=== PATIENT | male | born 1945 | race Caucasian/White ===

== ENCOUNTER 2022-10-23 11:14 | Inpatient (IN) | payer MEDICARE, MEDICAID, SELFPAY ==
--- NOTE | ~2022-10-23 | CT_ITS ---
EXAMINATION: CT ABDOMEN AND PELVIS WITHOUT CONTRAST CLINICAL INFORMATION: Nausea/vomiting with abdominal distention. COMPARISON: None available. TECHNIQUE: Multidetector volumetric imaging was performed from the superior aspect of the liver through the pubic symphysis. Sagittal and coronal reformatted images were obtained on the technologist's workstation. This CT examination was performed using dose optimization techniques as appropriate, variously including the following: *Automated exposure control *Adjustment of mA and/or kV according to patient size (this includes techniques or standardized protocols for targeted exams where dose is matched to indication/reason for exam; i.e. extremities or head) *Use of iterative reconstruction technique DLP: 295 mGy-cm FINDINGS: LUNG BASES: Heart size is enlarged. There is bilateral increased interstitial markings in both lungs suggestive of chronic changes. Bilateral posterior pleural thickening is seen. LIVER, GALLBLADDER, AND BILIARY TREE: The liver is normal in size, shape, and attenuation. No focal hepatic lesion or biliary ductal dilatation is present. There are multiple radiopaque dependent gallstones without wall thickening. PANCREAS: Unremarkable. SPLEEN: Unremarkable. ADRENAL GLANDS: Unremarkable. KIDNEYS AND URETERS: The kidneys are normal in size, shape, and attenuation. No hydronephrosis, hydroureter, or calculi seen. No perinephric stranding. There are bilateral renal cysts. BLADDER: There is a Kauffman's catheter in a nondistended bladder. No radiopaque calculi seen. Mild bladder wall thickening seen. GASTROINTESTINAL TRACT: There is scattered stool, diverticula, gas and oral contrast seen, without distention or diverticulitis. The small bowel loops are normal caliber, appendix is not visualized. ABDOMINAL WALL: There is a small umbilical hernia containing soft tissue density measuring 50 Hounsfield units, fluid. No fat stranding seen. LYMPH NODES: Normal. VASCULAR: There is atherosclerotic calcification of abdominal aorta without aneurysmal dilatation. PELVIC VISCERA: There is no free air or free fluid. Abnormal pelvic lymph nodes. OSSEOUS STRUCTURES: There is diffuse osteopenia. CT/CT abdomen pelvis wo IV con IMPRESSION: Colonic diverticulosis without diverticulitis. Mild constipation. Cholelithiasis without wall thickening. Emphysema with bilateral chronic scarring. Fleischner guidelines were followed.
--- NOTE | ~2022-10-23 | XR_ITS ---
EXAMINATION: XR CHEST CLINICAL INFORMATION: Shortness of breath COMPARISON: Chest radiographs 05/02/2019, CT abdomen 10/23/2022, CT chest 05/02/2019 TECHNIQUE: Portable upright AP view of the chest was obtained. FINDINGS: There are postsurgical changes with aortic and mitral valve replacement, sternotomy wires, mediastinal clips, and right hemithorax rib compression plates and screws similar to prior study. There is mild fullness cardiopericardial silhouette, stable from 2019. The vascularity shows even distribution which may suggest mild elevated pulmonary venous pressures. There is increased coarsening of the interstitial markings right lower zone without lobar or segmental airspace consolidation or air bronchogram. No effusion. The hilar and mediastinal contours and bony structures are stable. XR/XR chest 1V IMPRESSION: -Postsurgical changes. Even distribution pulmonary vascularity which may be associated with mild elevated pulmonary venous pressures. No effusion. -Increased coarsening interstitial markings right lower zone. No lobar or segmental airspace consolidation.
--- NOTE | ~2022-10-23 | CT_ITS ---
EXAMINATION: CT ABDOMEN AND PELVIS WITHOUT CONTRAST CLINICAL INFORMATION: Acute kidney injury with severe back pain and elevated INR COMPARISON: 05/02/2019 TECHNIQUE: Multidetector volumetric imaging was performed from the superior aspect of the liver through the pubic symphysis. Sagittal and coronal reformatted images were obtained on the technologist's workstation. This CT examination was performed using dose optimization techniques as appropriate, variously including the following: *Automated exposure control *Adjustment of mA and/or kV according to patient size (this includes techniques or standardized protocols for targeted exams where dose is matched to indication/reason for exam; i.e. extremities or head) *Use of iterative reconstruction technique DLP: 324 mGy-cm FINDINGS: Although this study was not done with intravenous contrast, it appears that this patient has had a fairly recent contrast administration as there is vicarious excretion of contrast in the gallbladder, nephrograms are present, and IV contrast is present in the bladder. LUNG BASES: Interstitial lung disease is again noted at the bases with fibrosis similar to prior. No acute consolidations or pleural effusions. The heart is enlarged. Coronary calcifications are present LIVER, GALLBLADDER, AND BILIARY TREE: The liver has a cirrhotic morphology with a nodular border and hypertrophied left lobe. No focal mass or biliary ductal dilatation is seen. The gallbladder contains IV contrast probably from vicarious excretion. A single dependent stone is again seen without pericholecystic inflammatory changes. PANCREAS: Unremarkable. SPLEEN: Unremarkable. ADRENAL GLANDS: Unremarkable. KIDNEYS AND URETERS: The kidneys are normal in size, shape, and attenuation. Bilateral Bosniak class I simple cysts are present without solid masses. Persistent nephrograms are present indicative of possible acute tubular necrosis as I suspect there has been a recent contrast administration for the reasons discussed above. No hydronephrosis, hydroureter, or calculi seen. No perinephric stranding. BLADDER: The bladder is distended and filled with contrast enhanced urine GASTROINTESTINAL TRACT: The small and large bowel are unremarkable. The appendix is unremarkable. ABDOMINAL WALL: No significant hernia is appreciated. There has been prior abdominal wall hernia repair present. LYMPH NODES: No retroperitoneal lymphadenopathy. VASCULAR: Atherosclerotic disease with calcified plaque is present in the aorta and iliofemoral vessels without aneurysm. No retroperitoneal PELVIC VISCERA: Moderate BPH. Seminal vesicles normal OSSEOUS STRUCTURES: Scoliosis convex to the left. Mild degenerative changes are present in the spine most marked at L4-L5. There is sclerosis and partial collapse of the T11 vertebral body. CT/CT abdomen pelvis wo IV con IMPRESSION: A cause for the patient's severe back pain has not been found. Incidental note made of: 1. Interstitial lung disease with fibrosis. 2. Cardiomegaly. 3. Cirrhotic liver. 4. Cholelithiasis without cholecystitis. 5. Bilateral Bosniak class I renal cysts. 6. Degenerative changes in the spine with scoliosis and partial collapse of T11. 7. Evidence of renal dysfunction with persistent nephrograms (contrast was not administered for this study) Fleischner guidelines were followed.
[2022-10-23 11:20] VITALS: BP 125/72; BP 128/76; PULSE 80; PULSE 88; RESP 20; TEMP 36.4; O2SAT 96; BMI 20.7
--- NOTE | 2022-10-23 11:42 | ED_ITS ---
HPI - Back Pain/Injury General Chief Complaint: Weakness Stated Complaint: Weakness, abnormal labs per EMS Time Seen by Provider: 10/23/22 11:22 Source: patient, EMS and old records reviewed Mode of arrival: EMS Limitations: no limitations History of Present Illness HPI Narrative: 77-year-old male with history of AFib on Coumadin, HFpEF s/p mechanical mitral and aortic valves, hx UE DVT 2019, CAD s/p CABG, interstitial lung disease, seizure disorder, anxiety, CKD, syncope, chronic anemia, hx multiple rib fractu res s/p ORIF, hx chest wall hematoma due to elevated INR requiring evacuation and blood transfusion in the past who presents to the ER for evaluation worsening low back pain for the last 2 weeks after lifting injury as well as elevated INR. Patient goes to the Coumadin Clinic at [facility] and was told his INR was 5.9 today. He denies any recent falls. He states he has severe low back pain in the middle of his back. Worse with any movement or laying flat. He states the pain is making it hard for him to walk. He comes from a [place]. He was recently at [facility] ER a couple of weeks ago when he injured his back and he thinks he has compression fractures. He states he had 2 CT scans at that time but does not know the results. He is taking PRN oxycodone. He denies any radiation of the pain, no leg weakness, numbness, tingling or bowel/bladder incontinence. MD elicited complaint: back pain, back injury and other (supratherapeutic INR) Pertinent past history: recent trauma Onset (ago): week(s) (2) Severity: severe Pain scale (0-10): 10 Similar Symptoms Previously: Yes Quality: sharp and stabbing Location: lumbar spine Radiation: none Exacerbating factors: movement, supine positioning and walking Relieving factors: immobilization Context: while lifting and turning/twisting Associated symptoms: difficulty walking Treatments prior to arrival: prescription analgesics Work related injury: No Related Data Home Medications Medication Instructions Recorded Confirmed bumetanide 1 mg tablet 2 mg PO BID 10/23/22 10/23/22 cholecalciferol (vitamin D3) 50 50 mcg PO DAILY 10/23/22 10/23/22 mcg (2,000 unit) capsule cyanocobalamin (vitamin B-12) 1,000 mcg PO DAILY 10/23/22 10/23/22 1,000 mcg tablet diltiazem HCl 240 mg 1 cap PO BEDTIME 10/23/22 10/23/22 capsule,extended release 24 hr ferrous sulfate 325 mg (65 mg 325 mg PO DAILY 10/23/22 10/23/22 iron) tablet fluoxetine 10 mg capsule 1 cap PO DAILY 10/23/22 10/23/22 folic acid 800 mcg tablet 0.8 mg PO DAILY 10/23/22 10/23/22 losartan 25 mg tablet 1 tab PO DAILY 10/23/22 10/23/22 oxycodone-acetaminophen 5 mg-325 1 tab PO BID PRN pain 10/23/22 10/23/22 mg tablet phenytoin sodium extended 100 mg 200 mg PO BID 10/23/22 10/23/22 capsule rosuvastatin 10 mg tablet 1 tab PO DAILY 10/23/22 10/23/22 tamsulosin 0.4 mg capsule 2 cap PO BEDTIME 10/23/22 10/23/22 torsemide 100 mg tablet 100 mg PO BID 10/23/22 10/23/22 warfarin 2.5 mg tablet 1.25 mg PO MOWEFR@1800 10/23/22 10/23/22 warfarin 2.5 mg tablet 2.5 mg PO SUTUTHSA@1800 10/23/22 10/23/22 zinc sulfate 50 mg zinc (220 mg) 50 mg PO DAILY 10/23/22 10/23/22 capsule Allergies Allergy/AdvReac Type Severity Reaction Status Date / Time No Known Allergies Allergy Unverified 04/27/20 19:41 [No Known Allergies*] Review of Systems Review of Systems: Yes all other systems are reviewed and are negative [facility] Social History Social History Alcohol intake: never Smoked in Last 30 Days: No Use of substances other than those prescribed or required for medical reasons: Yes Substance Use Type: Marijuana Advance Directives: Yes Advance Directives on File: Yes Advance Directives Date on File: 10/23/22 Physical Exam Vital Signs: Vital Signs: Last Vital Signs Temp 97.6 F 10/23/22 11:20 Pulse 80 10/23/22 15:03 Resp 20 10/23/22 15:03 BP 143/73 H 10/23/22 15:03 Pulse Ox 98 10/23/22 15:03 O2 Del Method 10/23/22 15:03 BMI result Body Mass Index 20.7 Appearance: Alert. Oriented X3. No acute distress. Eyes: Pupils equal, round and reactive to light. ENT: Pharynx normal. Neck: Normal inspection. Neck supple. CVS: Normal heart rate and rhythm. Pulses normal. Respiratory: No respiratory distress. Breath sounds normal. Abdomen: Soft and nontender. +BS x4 Skin: Skin warm and dry. Normal skin color. Normal skin turgor. No rashes. Back: lumbar tenderness throughout including the soft tissues and midline spine. limited ROM due to pain. Extremities: No lower extremity edema. able to move the lower extremities but in severe back pain Neuro: Oriented X 3. No motor deficit. No sensory deficit. gait not tested due to back pain Medications Administered Discontinued Medications Generic Name Dose Route Start Last Admin Trade Name Freq PRN Reason Stop Dose Admin Acetaminophen 975 mg 10/23/22 11:38 10/23/22 11:46 Acetaminophen 325 Mg Tablet PO 10/23/22 11:39 975 mg ONCE ONE Administration Fentanyl 50 mcg 10/23/22 13:48 10/23/22 14:10 Fentanyl Citrate/Pf 100 Mcg/2 Ml Vial IVPUSH 10/23/22 13:49 50 mcg ONCE ONE Administration Protocol Sodium Chloride 500 mls @ 500 mls/hr 10/23/22 14:45 10/23/22 14:58 Ns IV 10/23/22 15:44 500 mls/hr .Q1H KASSANDRA Administration Ceftriaxone Sodium 1 gm/ 50 mls @ 100 mls/hr 10/23/22 15:49 10/23/22 16:15 Sodium Chloride IV 10/23/22 16:18 100 mls/hr ONCE ONE Administration Lidocaine HCl 10 ml 10/23/22 14:34 10/23/22 14:59 Lidocaine Hcl 2 % Urojet 10 Ml Jel.Pf.Bassam TOPICAL 10/23/22 14:35 10 ml ONCE ONE Administration Oxycodone HCl 5 mg 10/23/22 11:37 10/23/22 11:47 Oxycodone Hcl Immed Release 5 Mg Tablet PO 10/23/22 11:38 5 mg ONCE ONE Administration Medical Decision Making Medical Decision Making MDM Narrative: 77-year-old male with a history of diastolic heart failure, syncope, CKD, anemia, seizures, AFib on Coumadin who presents to the ER for evaluation of a supratherapeutic INR and worsening back pain for the last couple of days after an injury 2 weeks ago. He has an exquisite pain on arrival. He has tenderness to his entire lumbar area, worse midline. Unable to lay flat. His vital signs are stable. He has no red flag symptoms of low back pain. Attempting to get records from [facility] now. No evidence of acute bleeding. Repeat INR is pending. No indication for reversal at this time. He has no evidence of flank ecchymosis. No history of trauma to suggest an RP bleed. 17:00 - only slight improvement in renal [id number] after IVF and straight cath. Differential Diagnosis Differential Diagnoses: The differential diagnosis associated with the presentation includes Back pain ddx : Compression fracture, retroperitoneal bleed, renal hematoma, lumbar strain, pyelonephritis, no evidence of cauda equina syndrome ANUPAMA ddx: obstructive uropathy, pre-renal ANUPAMA, cardiorenal syndrome, contrast induced nephropathy - likely multifactorial Admission/Observation Consideration of admission/observation: Escalation of care including admission/observation considered ANUPAMA on CKD Consult Healthcare Provider Management of the patient was discussed with: Hospitalist Spoke w/ Dr. Dyson who accepts for admission Lab Data MDM Lab Attestation statement: I reviewed the patient's lab results. Stable macrocytic anemia, acute renal failure, hypokalemia, elevated BNP 10/23/22 11:53 10/23/22 11:53 Labs: Lab Results 10/23/22 10/23/22 10/23/22 Range/Units 11:53 11:53 11:53 WBC 7.4 (4.8-10.8) X10*3/uL RBC 3.00 L (4.60-5.80) X10*6/uL Hgb 10.7 L (14.0-18.0) g/dl Hct 31.9 L (42.0-52.0) % MCV 106.3 H (80.0-98.0) fL MCH 35.7 H (27.0-33.0) pg MCHC 33.5 (31.0-36.0) g/dl RDW 13.3 (11.0-16.0) % Plt Count 252 (160-400) X10*3/uL MPV 9.0 L (9.4-12.4) fL Immature Gran % (Auto) 0.3 (0.0-0.4) % Neut % (Auto) 82.7 H (45-73) % Lymph % (Auto) 5.2 L (20-40) % [place] % (Auto) 9.5 (2-11) % Eos % (Auto) 1.6 (0-4) % Baso % (Auto) 0.7 (0-2) % Lymph # (Auto) 0.4 L (1.2-4.9) X10*3/uL [place] # (Auto) 0.7 (0.1-1.2) X10*3/uL Eos # (Auto) 0.1 (0.0-0.4) X10*3/uL Baso # (Auto) 0.1 (0.0-0.2) X10*3/uL Abs Immat Gran (auto) 0.02 (0.00-0.03) X10*3/uL Absolute Neuts (auto) 6.1 (2.0-8.3) x10*3/uL Absolute Nucleated RBC 0.000 (0.0-0.012) X10*3/uL Nucleated RBC % (auto) 0.0 (0.0-0.2) /100WBC PT 64.9 H (10.0-13.1) SEC INR 5.3 H* (0.9-1.1) APTT 46.4 H (26.0-36.4) SEC Sodium 136 (135-145) mmol/L Potassium 2.9 L (3.3-5.1) mmol/L Chloride 94 L (96-108) mmol/L Carbon Dioxide 27 (22-29) mmol/L Anion Gap 18 (12-20) BUN 47 H (9-16) mg/dL Creatinine 3.53 H (0.5-1.4) mg/dL Estim Creat Clear Calc 15.7 Estimated GFR 17 Random Glucose 96 (60-115) mg/dL Lactic Acid (0.5-2.0) mmol/L Calcium 8.8 (8.4-10.2) mg/dL Magnesium 2.4 (1.6-2.6) mg/dL Total Bilirubin 0.6 (0.0-1.0) mg/dL Direct Bilirubin 0.2 (0.0-0.5) mg/dL AST 18 (5-37) U/L ALT 11 (0-40) U/L Alkaline Phosphatase 240 H (39-117) U/L B-Natriuretic Peptide (<100) pg/mL Total Protein 7.0 (6.5-8.0) g/dL Albumin 3.7 (3.5-5.0) g/dL Urine Color Urine Appearance Urine pH (5.0-9.0) Ur Specific [place] (1.005-1.025) Urine Protein (Neg-Trace) mg/dL Urine Glucose (UA) (Negative) mg/dL Urine Ketones (Negative) mg/dL Urine Blood (Negative) Urine Nitrite (Negative) Ur Leukocyte Esterase (Negative) Urine RBC (0-2) /HPF Urine WBC (0-5) /HPF Ur Squamous Epith Cells (0-2) /HPF Urine Bacteria (None Seen) Hyaline Casts (0-2) /LPF Granular Casts Ur Random Sodium mmol/L Urine Creatinine mg/dL COVID-19 (DAPHNE) (Negative) COVID-19 Clin Com 10/23/22 10/23/22 10/23/22 Range/Units 11:53 11:53 15:02 WBC (4.8-10.8) X10*3/uL RBC (4.60-5.80) X10*6/uL Hgb (14.0-18.0) g/dl Hct (42.0-52.0) % MCV (80.0-98.0) fL MCH (27.0-33.0) pg MCHC (31.0-36.0) g/dl RDW (11.0-16.0) % Plt Count (160-400) X10*3/uL MPV (9.4-12.4) fL Immature Gran % (Auto) (0.0-0.4) % Neut % (Auto) (45-73) % Lymph % (Auto) (20-40) % [place] % (Auto) (2-11) % Eos % (Auto) (0-4) % Baso % (Auto) (0-2) % Lymph # (Auto) (1.2-4.9) X10*3/uL [place] # (Auto) (0.1-1.2) X10*3/uL Eos # (Auto) (0.0-0.4) X10*3/uL Baso # (Auto) (0.0-0.2) X10*3/uL Abs Immat Gran (auto) (0.00-0.03) X10*3/uL Absolute Neuts (auto) (2.0-8.3) x10*3/uL Absolute Nucleated RBC (0.0-0.012) X10*3/uL Nucleated RBC % (auto) (0.0-0.2) /100WBC PT (10.0-13.1) SEC INR (0.9-1.1) APTT (26.0-36.4) SEC Sodium (135-145) mmol/L Potassium (3.3-5.1) mmol/L Chloride (96-108) mmol/L Carbon Dioxide (22-29) mmol/L Anion Gap (12-20) BUN (9-16) mg/dL Creatinine (0.5-1.4) mg/dL Estim Creat Clear Calc Estimated GFR Random Glucose (60-115) mg/dL Lactic Acid (0.5-2.0) mmol/L Calcium (8.4-10.2) mg/dL Magnesium (1.6-2.6) mg/dL Total Bilirubin (0.0-1.0) mg/dL Direct Bilirubin (0.0-0.5) mg/dL AST (5-37) U/L ALT (0-40) U/L Alkaline Phosphatase (39-117) U/L B-Natriuretic Peptide 730 H (<100) pg/mL Total Protein (6.5-8.0) g/dL Albumin (3.5-5.0) g/dL Urine Color Urine Appearance Urine pH (5.0-9.0) Ur Specific [place] (1.005-1.025) Urine Protein (Neg-Trace) mg/dL Urine Glucose (UA) (Negative) mg/dL Urine Ketones (Negative) mg/dL Urine Blood (Negative) Urine Nitrite (Negative) Ur Leukocyte Esterase (Negative) Urine RBC (0-2) /HPF Urine WBC (0-5) /HPF Ur Squamous Epith Cells (0-2) /HPF Urine Bacteria (None Seen) Hyaline Casts (0-2) /LPF Granular Casts Ur Random Sodium 33.0 mmol/L Urine Creatinine 68.56 mg/dL COVID-19 (DAPHNE) Negative (Negative) COVID-19 Clin Com See Note 10/23/22 10/23/22 10/23/22 Range/Units 15:02 16:10 16:10 WBC (4.8-10.8) X10*3/uL RBC (4.60-5.80) X10*6/uL Hgb (14.0-18.0) g/dl Hct (42.0-52.0) % MCV (80.0-98.0) fL MCH (27.0-33.0) pg MCHC (31.0-36.0) g/dl RDW (11.0-16.0) % Plt Count (160-400) X10*3/uL MPV (9.4-12.4) fL Immature Gran % (Auto) (0.0-0.4) % Neut % (Auto) (45-73) % Lymph % (Auto) (20-40) % [place] % (Auto) (2-11) % Eos % (Auto) (0-4) % Baso % (Auto) (0-2) % Lymph # (Auto) (1.2-4.9) X10*3/uL [place] # (Auto) (0.1-1.2) X10*3/uL Eos # (Auto) (0.0-0.4) X10*3/uL Baso # (Auto) (0.0-0.2) X10*3/uL Abs Immat Gran (auto) (0.00-0.03) X10*3/uL Absolute Neuts (auto) (2.0-8.3) x10*3/uL Absolute Nucleated RBC (0.0-0.012) X10*3/uL Nucleated RBC % (auto) (0.0-0.2) /100WBC PT (10.0-13.1) SEC INR (0.9-1.1) APTT (26.0-36.4) SEC Sodium 136 (135-145) mmol/L Potassium 3.1 L (3.3-5.1) mmol/L Chloride 98 (96-108) mmol/L Carbon Dioxide 20 L (22-29) mmol/L Anion Gap 21 H (12-20) BUN 47 H (9-16) mg/dL Creatinine 3.16 H (0.5-1.4) mg/dL Estim Creat Clear Calc 17.6 Estimated GFR 19 Random Glucose 103 (60-115) mg/dL Lactic Acid 0.4 L (0.5-2.0) mmol/L Calcium 8.4 (8.4-10.2) mg/dL Magnesium (1.6-2.6) mg/dL Total Bilirubin (0.0-1.0) mg/dL Direct Bilirubin (0.0-0.5) mg/dL AST (5-37) U/L ALT (0-40) U/L Alkaline Phosphatase (39-117) U/L B-Natriuretic Peptide (<100) pg/mL Total Protein (6.5-8.0) g/dL Albumin (3.5-5.0) g/dL Urine Color Yellow Urine Appearance Cloudy Urine pH 5.0 (5.0-9.0) Ur Specific [place] 1.020 (1.005-1.025) Urine Protein 30 (1+) H (Neg-Trace) mg/dL Urine Glucose (UA) Negative (Negative) mg/dL Urine Ketones Negative (Negative) mg/dL Urine Blood Trace H (Negative) Urine Nitrite Negative (Negative) Ur Leukocyte Esterase Moderate (2+) H (Negative) Urine RBC 0-2 (0-2) /HPF Urine WBC 21-50 H (0-5) /HPF Ur Squamous Epith Cells 6-10 (0-2) /HPF Urine Bacteria 4+ (None Seen) Hyaline Casts 0-2 (0-2) /LPF Granular Casts Present Ur Random Sodium mmol/L Urine Creatinine mg/dL COVID-19 (DAPHNE) (Negative) COVID-19 Clin Com Independent Interpretation I performed an independent interpretation of an: Plain X-Ray and CT Scan Interpretation: CXR with chronically increased vascular markings, cardiomegaly, hardware present in right ribs. no pleural effusions or overt pna CT scan showing honeycombing of the lung bases c/w ILD, no RP bleed, no hyd ronephrosis or stranding, no obvious compression defomities appreciated Radiology Impression Discussion of test interpretation with radiology: I have reviewed the radiologist's reading. Radiologist Impression: CXR : CLINICAL INFORMATION: Shortness of breath COMPARISON: Chest radiographs 05/02/2019, CT abdomen 10/23/2022, CT chest 05/02/2019 TECHNIQUE: Portable upright AP view of the chest was obtained. FINDINGS: There are postsurgical changes with aortic and mitral valve replacement, sternotomy wires, mediastinal clips, and right hemithorax rib compression plates and screws similar to prior study. There is mild fullness cardiopericardial silhouette, stable from 2019. The vascularity shows even distribution which may suggest mild elevated pulmonary venous pressures. There is increased coarsening of the interstitial markings right lower zone without lobar or segmental airspace consolidation or air bronchogram. No effusion. The hilar and mediastinal contours and bony structures are stable. XR/XR chest 1V IMPRESSION: -Postsurgical changes. Even distribution pulmonary vascularity which may be associated with mild elevated pulmonary venous pressures. No effusion. ? -Increased coarsening interstitial markings right lower zone. No lobar or segmental airspace consolidation. Independent Historian Clinical information obtained from an independent historian. History obtained from or confirmed by: EMS External Record Review External record reviewed: Inpatient record, Outpatient record and Prior outpatient labs Rectum fully obtained, patient was admitted 1 week ago for acute CHF exacerbation requiring oxygen. His BUN/creatinine at that time was 43/1.90 Prescription Management I considered prescription management with: Pain Medication Chronic Conditions Patient?s care impacted by: Hypertension and Other (CKD, CHF) Critical Care Time Critical Care Time Critical Care Time: Yes Total Critical Care Time: 39 Attestation: I have personally provided critical care time exclusive of time spent on separately billable procedures. Time includes review of lab data, radiology results, discussion with consultants, and monitoring for potential decompensation. Intervention performed as documented. Discharge Plan Discharge Clinical Impression: Acute urinary retention, Acute UTI, Acute kidney injury superimposed on chronic kidney disease, Low back pain Patient Disposition: Admitted As Inpatient
[2022-10-23] MEDS: Acetaminophen 325 MG TABLET 975 MG PO (11:46)
[2022-10-23] MEDS: oxyCODONE HCl Immed Release 5 MG TABLET PO ×2 (11:47→22:37)
--- NOTE | 2022-10-23 11:58 | PC.NURSE ---
Spoke with patient's son regarding some past medical history on patient. According to his son his left eye was injured approximately 1 year ago and since then the pupil has been less reactive to light. Also, patient has chronic pain but over the past few weeks patient has been complaining of worsening back pain that isn't being relieved by his usual pain medications.
[2022-10-23 12:00] LABS: MANUAL DIFF FLAG NO
[2022-10-23 12:02] LABS: Basophils Absolute Auto 0.1 X10*3/uL (0.0-0.2); Basophils Percent Auto 0.7 % (0-2); Eosinophils Absolute Auto 0.1 X10*3/uL (0.0-0.4); Eosinophils Percent Auto 1.6 % (0-4); Hematocrit 31.9 % (42.0-52.0); Hemoglobin 10.7 g/dl (14.0-18.0); Imm Gran Abs Auto 0.02 X10*3/uL (0.00-0.03); Imm Gran Pct Auto 0.3 % (0.0-0.4); Lymphocytes Absolute Auto 0.4 X10*3/uL (1.2-4.9); Lymphocytes Percent Auto 5.2 % (20-40); Mean Corpuscular HGB Conc 33.5 g/dl (31.0-36.0); Mean Corpuscular Hemoglobin 35.7 pg (27.0-33.0); Mean Corpuscular Volume 106.3 fL (80.0-98.0); Monocytes Absolute Auto 0.7 X10*3/uL (0.1-1.2); Monocytes Percent Auto 9.5 % (2-11); Neutrophils Absolute Auto 6.1 x10*3/uL (2.0-8.3); Neutrophils Percent Auto 82.7 % (45-73); Platelet Count 252 X10*3/uL (160-400); Red Cell Distribution Width 13.3 % (11.0-16.0); White Blood Count 7.4 X10*3/uL (4.8-10.8)
[2022-10-23 12:12] LABS: Partial Thromboplastin Time 46.4 SEC (26.0-36.4)
[2022-10-23 12:15] LABS: Prothrombin Time 64.9 SEC (10.0-13.1)
[2022-10-23 12:18] LABS: INTERNATIONAL NORM RATIO 5.3 (0.9-1.1)
[2022-10-23 12:25] LABS: B Type Natriuretic Peptide 730 pg/mL (<100)
[2022-10-23 12:29] LABS: COVID-19 Test Negative (Negative); IDNOW Serial# 08D9AD1C
[2022-10-23 12:31] LABS: Alanine Aminotransferase 11 U/L (0-40); Albumin Level 3.7 g/dL (3.5-5.0); Alkaline Phosphatase 240 U/L (39-117); Anion Gap 18 (12-20); Aspartate Amino Transferase 18 U/L (5-37); Bilirubin Direct 0.2 mg/dL (0.0-0.5); Bilirubin Total 0.6 mg/dL (0.0-1.0); Blood Urea Nitrogen 47 mg/dL (9-16); Calcium 8.8 mg/dL (8.4-10.2); Carbon Dioxide 27 mmol/L (22-29); Chloride 94 mmol/L (96-108); Creatinine Clr Calc Pharmacy 15.7; Estimated Glomerular Filt Rate 17; Glucose Random 96 mg/dL (60-115); Magnesium 2.4 mg/dL (1.6-2.6); Potassium 2.9 mmol/L (3.3-5.1); Sodium 136 mmol/L (135-145)
[2022-10-23 13:48] VITALS: RESP 18
[2022-10-23] MEDS: fentaNYL citrate/PF 100 MCG/2 ML VIAL 50 MCG IVPUSH (14:10)
--- NOTE | 2022-10-23 14:27 | PC.NURSE ---
Patient stood at bedside for approximately 2-3 minutes in an attempt to urinate. Patient was ultimately unsuccessful. Provider made aware.
[2022-10-23] MEDS: 0.9 % Sodium Chloride 500 ML IV (14:58)
[2022-10-23] MEDS: Lidocaine HCl 2 % Urojet 10 ML JEL.PF.APP TOPICAL (14:59)
[2022-10-23 15:03] VITALS: BP 143/73; PULSE 80; RESP 20; O2SAT 98
--- NOTE | 2022-10-23 15:07 | PHA.MEDREC ---
Pharmacy Consult ? Medication Reconciliation Pharmacy has completed the medication reconciliation. Med rec complete using list from discharge at [facility] on 10/11/22. Patient is poor historian and not able to provide much information. He states the list from [facility] should be right .
[2022-10-23 15:11] LABS: Appearance Urine Cloudy; Color Urine Yellow; Glucose Urine UA Negative (Negative); Leukocyte Esterase Urine Moderate (2+) (Negative); Nitrite Urine Negative (Negative); UMIC TRIGGER UACC YES; Urine Blood Trace (Negative); Urine Ketones Negative (Negative); Urine Protein 30 (1+) mg/dL (Neg-Trace)
[2022-10-23 15:31] LABS: Bacteria Urine 4+ (None Seen); Granular Casts Urine Present; Hyaline Casts Urine 0-2 /LPF (0-2); RBC Urine 0-2 /HPF (0-2); UACC Culture Trigger YES; WBC Urine 21-50 /HPF (0-5)
[2022-10-23 15:35] LABS: Creatinine Urine 68.56 mg/dL
--- NOTE | 2022-10-23 15:44 | PC.NURSE ---
Patient was unable to urinate on own; straight cath x1 400ml drained from bladder.
[2022-10-23] MEDS: cefTRIAXone sodium 1 GM in 0.9 % Sodium Chloride 50 ML IV (16:15)
--- NOTE | 2022-10-23 16:26 | PC.NURSE ---
Blood cultures obtained on patient and IV antibiotics started. Patient calm and cooperative resting on stretcher.
[2022-10-23 16:33] LABS: Lactic Acid 0.4 mmol/L (0.5-2.0)
[2022-10-23 16:49] LABS: Anion Gap 21 (12-20); Blood Urea Nitrogen 47 mg/dL (9-16); Calcium 8.4 mg/dL (8.4-10.2); Carbon Dioxide 20 mmol/L (22-29); Chloride 98 mmol/L (96-108); Creatinine Clr Calc Pharmacy 17.6; Estimated Glomerular Filt Rate 19; Glucose Random 103 mg/dL (60-115); Potassium 3.1 mmol/L (3.3-5.1); Sodium 136 mmol/L (135-145)
--- NOTE | 2022-10-23 17:48 | P.HPHOSP_ITS ---
History of Present Illness Date of Service: 10/23/22 Chief Complaint: back pain 77M PMH chronic diasotlic chf, mechanical MVR, AVR, CAD s/p CABG, bph, htn, pulmonary fibrosis presented with low back pain. patient was at [facility] 1 week ptp for chf, was discharged on 100mg bid torsemide (home dose), but tranfser papers report 80mg bid, creatinine 1.9 at discharge. patient is a poor historian, but reports ongoing low back pain radiating to suprapubic region, difficulty urinating, positive abdominal bloating, denies nsaid use, chest pain, sob, fever, or chills, in ED found to have ANUPAMA with creaitnine of 3.53, hypokalemia 2.9, urinary retention of about 500cc pvr without hydro on CT abd, ct abd did show ILD, cardiomegaly, liver cirrhosis, persistent nephrograms. Review of Systems Review of Systems: Yes all other systems are reviewed and are negative [facility] Social History Alcohol intake: never Smoked in Last 30 Days: No Use of substances other than those prescribed or required for medical reasons: Yes Substance Use Type: Marijuana Advance Directives: Yes Advance Directives on File: Yes Advance Directives Date on File: 10/23/22 Meds Allergies Allergy/AdvReac Type Severity Reaction Status Date / Time No Known Allergies Allergy Unverified 04/27/20 19:41 [No Known Allergies*] Active Medications: Current Medications Atorvastatin Calcium (Atorvastatin Calcium 40 Mg Tablet) 40 mg PO DAILY [facility] Bumetanide (Bumetanide 1 Mg/4 Ml Vial) 1 mg IVPUSH BID@0900,1700 [facility]; Protocol Cyanocobalamin (Cyanocobalamin (Vitamin B-12) 1,000 Mcg Tablet) 1,000 mcg PO DAILY [facility] Diltiazem HCl (Diltiazem Hcl Cd 240 Mg Cap.Er.Deg) 240 mg PO BEDTIME [facility]; Protocol Ferrous Sulfate (Ferrous Sulfate 324 Mg Tablet.Dr) 324 mg PO DAILY [facility] Fluoxetine HCl (Fluoxetine Hcl 10 Mg Capsule) 10 mg PO DAILY [facility] Folic Acid (Folic Acid 1 Mg Tablet) 1 mg PO DAILY [facility] Oxycodone HCl (Oxycodone Hcl Immed Release 5 Mg Tablet) 5 mg PO BID PRN PRN Reason: moderate pain Pharmacy Consult (Consult Rx Perform Med Rec) 1 each MISCELLANE ONCE PRN PRN Reason: Consult order Phenytoin Sodium (Phenytoin Sodium Extended 100 Mg Capsule) 200 mg PO BID [facility] Sodium Chloride (0.9 % Sodium Chloride Flush 3 Ml Syringe) 3 ml IVFLUSH QSHIFT [facility] Tamsulosin HCl (Tamsulosin Hcl 0.4 Mg Capsule) 0.8 mg PO BEDTIME [facility] Vitamin D (Cholecalciferol (Vitamin D3) 25 Mcg Tablet) 50 mcg PO DAILY [facility] Zinc Sulfate (Zinc Sulfate 220 Mg Capsule) 220 mg PO DAILY [facility] Home Medications Medication Instructions Recorded Confirmed Last Taken Type bumetanide 1 mg tablet 2 mg PO BID 10/23/22 10/23/22 Unknown History cholecalciferol (vitamin D3) 50 50 mcg PO DAILY 10/23/22 10/23/22 10/23/22 History mcg (2,000 unit) capsule cyanocobalamin (vitamin B-12) 1,000 mcg PO DAILY 10/23/22 10/23/22 10/23/22 History 1,000 mcg tablet diltiazem HCl 240 mg 1 cap PO BEDTIME 10/23/22 10/23/22 10/22/22 History capsule,extended release 24 hr ferrous sulfate 325 mg (65 mg 325 mg PO DAILY 10/23/22 10/23/22 10/23/22 History iron) tablet fluoxetine 10 mg capsule 1 cap PO DAILY 10/23/22 10/23/22 10/23/22 History folic acid 800 mcg tablet 0.8 mg PO DAILY 10/23/22 10/23/22 10/23/22 History losartan 25 mg tablet 1 tab PO DAILY 10/23/22 10/23/22 10/23/22 History oxycodone-acetaminophen 5 mg-325 1 tab PO BID PRN pain 10/23/22 10/23/22 10/22/22 History mg tablet phenytoin sodium extended 100 mg 200 mg PO BID 10/23/22 10/23/22 10/23/22 His tory capsule rosuvastatin 10 mg tablet 1 tab PO DAILY 10/23/22 10/23/22 10/23/22 History tamsulosin 0.4 mg capsule 2 cap PO BEDTIME 10/23/22 10/23/22 10/22/22 History torsemide 100 mg tablet 100 mg PO BID 10/23/22 10/23/22 10/23/22 History warfarin 2.5 mg tablet 1.25 mg PO MOWEFR@1800 10/23/22 10/23/22 10/21/22 History warfarin 2.5 mg tablet 2.5 mg PO SUTUTHSA@1800 10/23/22 10/23/22 10/20/22 History zinc sulfate 50 mg zinc (220 mg) 50 mg PO DAILY 10/23/22 10/23/22 10/23/22 Hist ory capsule Physical Exam Vital Signs and Narrative: Vital Signs: Last Vital Signs Temp 97.6 F 10/23/22 11:20 Pulse 80 10/23/22 15:03 Resp 20 10/23/22 15:03 BP 143/73 H 10/23/22 15:03 Pulse Ox 98 10/23/22 15:03 O2 Del Method 10/23/22 15:03 BMI result Body Mass Index 20.7 General: AO X 3, no acute distress Resp: CTA bilateral, no accessory muscles used CVS: S1,S2,RRR GI: soft, non tender, distended Neuro: motor grossly intact, alert Psych: appropriate affect, impaired insight Results Labs 10/23/22 11:53 10/23/22 16:10 Labs: Laboratory Results - last 24 hr 10/23/22 10/23/22 10/23/22 11:53 11:53 11:53 MCV 106.3 H MCH 35.7 H MCHC 33.5 RDW 13.3 Plt Count 252 MPV 9.0 L Immature Gran % (Auto) 0.3 Neut % (Auto) 82.7 H Lymph % (Auto) 5.2 L [place] % (Auto) 9.5 Eos % (Auto) 1.6 Baso % (Auto) 0.7 Lymph # (Auto) 0.4 L [place] # (Auto) 0.7 Eos # (Auto) 0.1 Baso # (Auto) 0.1 Abs Immat Gran (auto) 0.02 Absolute Neuts (auto) 6.1 Absolute Nucleated RBC 0.000 Nucleated RBC % (auto) 0.0 PT 64.9 H INR 5.3 H* APTT 46.4 H Anion Gap 18 Estim Creat Clear Calc 15.7 Estimated GFR 17 Random Glucose 96 Lactic Acid Calcium 8.8 Magnesium 2.4 Total Bilirubin 0.6 Direct Bilirubin 0.2 AST 18 ALT 11 Alkaline Phosphatase 240 H B-Natriuretic Peptide Total Protein 7.0 Albumin 3.7 Urine Color Urine Appearance Urine pH Ur Specific [place] Urine Protein Urine Glucose (UA) Urine Ketones Urine Blood Urine Nitrite Ur Leukocyte Esterase Urine RBC Urine WBC Ur Squamous Epith Cells Urine Bacteria Hyaline Casts Granular Casts Ur Random Sodium Urine Creatinine COVID-19 ([facility]NE) COVID-19 Clin Com 10/23/22 10/23/22 10/23/22 11:53 11:53 15:02 MCV MCH MCHC RDW Plt Count MPV Immature Gran % (Auto) Neut % (Auto) Lymph % (Auto) [place] % (Auto) Eos % (Auto) Baso % (Auto) Lymph # (Auto) [place] # (Auto) Eos # (Auto) Baso # (Auto) Abs Immat Gran (auto) Absolute Neuts (auto) Absolute Nucleated RBC Nucleated RBC % (auto) PT INR APTT Anion Gap Estim Creat Clear Calc Estimated GFR Random Glucose Lactic Acid Calcium Magnesium Total Bilirubin Direct Bilirubin AST ALT Alkaline Phosphatase B-Natriuretic Peptide 730 H Total Protein Albumin Urine Color Urine Appearance Urine pH Ur Specific [place] Urine Protein Urine Glucose (UA) Urine Ketones Urine Blood Urine Nitrite Ur Leukocyte Esterase Urine RBC Urine WBC Ur Squamous Epith Cells Urine Bacteria Hyaline Casts Granular Casts Ur Random Sodium 33.0 Urine Creatinine 68.56 COVID-19 ([facility]) Negative COVID-19 [email or web address] Com See Note 10/23/22 10/23/22 10/23/22 15:02 16:10 16:10 MCV MCH MCHC RDW Plt Count MPV Immature Gran % (Auto) Neut % (Auto) Lymph % (Auto) [place] % (Auto) Eos % (Auto) Baso % (Auto) Lymph # (Auto) [place] # (Auto) Eos # (Auto) Baso # (Auto) Abs Immat Gran (auto) Absolute Neuts (auto) Absolute Nucleated RBC Nucleated RBC % (auto) PT INR APTT Anion Gap 21 H Estim Creat Clear Calc 17.6 Estimated GFR 19 Random Glucose 103 Lactic Acid 0.4 L Calcium 8.4 Magnesium Total Bilirubin Direct Bilirubin AST ALT Alkaline Phosphatase B-Natriuretic Peptide Total Protein Albumin Urine Color Yellow Urine Appearance Cloudy Urine pH 5.0 Ur Specific [place] 1.020 Urine Protein 30 (1+) H Urine Glucose (UA) Negative Urine Ketones Negative Urine Blood Trace H Urine Nitrite Negative Ur Leukocyte Esterase Moderate (2+) H Urine RBC 0-2 Urine WBC 21-50 H Ur Squamous Epith Cells 6-10 Urine Bacteria 4+ Hyaline Casts 0-2 Granular Casts Present Ur Random Sodium Urine Creatinine COVID-19 (DAPHNE) COVID-19 Clin Com Imaging Radiologist's Impressions: Impressions Chest X-Ray 10/23/22 12:42 IMPRESSION: -Postsurgical changes. Even distribution pulmonary vascularity which may be associated with mild elevated pulmonary venous pressures. No effusion. -Increased coarsening interstitial markings right lower zone. No lobar or segmental airspace consolidation. Abdomen/Pelvis CT 10/23/22 13:12 IMPRESSION: A cause for the patient's severe back pain has not been found. Incidental note made of: 1. Interstitial lung disease with fibrosis. 2. Cardiomegaly. 3. Cirrhotic liver. 4. Cholelithiasis without cholecystitis. 5. Bilateral Bosniak class I renal cysts. 6. Degenerative changes in the spine with scoliosis and partial collapse of T11. 7. Evidence of renal dysfunction with persistent nephrograms (contrast was not administered for this study) Fleischner guidelines were followed. Assessment and Plan (1) Acute urinary retention: Status: Acute Plan 77M PMH chronic diasotlic chf, chronic afib, mechanical MVR, AVR, CAD s/p CABG, bph, htn, pulmonary fibrosis presented with low back pain, found to have anupama ANUPAMA on CKD III partially obstructive - fontana, flomax ? cardiorenal - iv diuresis, monitor closely nephro eval hold losartan acute on chronic diastolic chf iv bumex echo hypokalemia monitor mechanical avr, mvr, chronic afib inr supratherapeutic, restart coumadin when inr<3.5 continue cardizem CAD coumadin, statin bph flomax htn cardizem pulmonary fibrosis stable dvt prophylaxis - on coumadin full code pateint with severe anupama, high risk due to multiple cardiac comorbidites, therefore, expectedt o require atleast 2 midnights inpatient. Time Spent With Patient Time: Total time managing care of this patient today ____ minutes. Quality Stroke Does the patient have a stroke diagnosis?: No VTE Prior VTE?: No VTE Risk Level:: Medical - moderate - high VTE Device Contraindication: Treatment Not Indicated VTE Drug Contraindication: N/A - Med Ordered
[2022-10-23 18:51] LABS: Folate 18.8 ng/mL (> or = 4.0); Thyroid Stimulating Hormone 0.88 uIU/mL (0.32-4.0); Vitamin B12 > 2000 pg/mL (200-900)
[2022-10-23 19:03] VITALS: BP 126/70; PULSE 84; RESP 20; TEMP 36.5; O2SAT 98
[2022-10-23] MEDS: Bumetanide 1 MG/4 ML VIAL IVPUSH (19:13)
--- NOTE | 2022-10-23 21:12 | PC.NURSE ---
Pt complaining of abdominal pain and a need to void. Pt is unable to void. Bladder scan reading 823 mL. Hospitalist informed. Plan to insert Kauffman catheter.
[2022-10-23] MEDS: Tamsulosin HCL 0.4 MG CAPSULE 0.8 MG PO (21:57)
[2022-10-23] MEDS: Phenytoin Sodium Extended 100 MG CAPSULE 200 MG PO (21:57)
[2022-10-23 22:13] VITALS: BP 154/90; PULSE 95; RESP 20; TEMP 37.1; O2SAT 98
[2022-10-23] MEDS: dilTIAZem HCL CD 240 MG CAP.ER.DEG PO (22:33)
[2022-10-23] MEDS: 0.9 % Sodium Chloride Flush 3 ML SYRINGE IVFLUSH (22:37)
[2022-10-24] MEDS: Morphine Sulfate 2 MG/ML CARTRIDGE IVPUSH (00:50)
[2022-10-24 04:00] VITALS: BP 120/62; PULSE 73; RESP 18; TEMP 37.1; O2SAT 98
[2022-10-24] MEDS: Acetaminophen 325 MG TABLET 650 MG PO ×2 (04:53→21:02)
--- NOTE | 2022-10-24 07:00 | CA_ITS ---
Transthoracic Echocardiogram Patient (Last, First, Middle): Matias Downs, Gender: Male Date of : 1945 Age: 77 Procedure Date: 10/24/2022 Procedure Type: Transthoracic Echocardiogram [place] [facility] [place]: 175.26 cm Weight: 63.5 kg BSA: 1.78 m2 Heart Rate: bpm BP: 120 / 62 mmHg Geography Head: SB Referring MD: Jacob Dyson MD Symptoms: chf Study Quality: Adequate Conclusions: - Normal left ventricular size, thickness, and systolic function. The visually estimated ejection fraction is between 55-60%. - Moderately increased right ventricular cavity size. There is moderately decreased right ventricular systolic function. - A mechanical prosthetic aortic valve is present. The prosthetic aortic valve appears to be functioning abnormally. There is moderate aortic valve stenosis. The peak aortic velocity is 2.81 m/s. The mean gradient is 17 mmHg. The aortic valve area is 1.05 cm2. - A mechanical prosthetic mitral valve is present. The prosthetic mitral valve appears to be functioning normally. Findings Left Ventricle Normal left ventricular size, thickness, and systolic function. The visually estimated ejection fraction is between 55-60%. There is paradoxical septal motion consistent with post-operative status. Diastolic function is indeterminate on the basis of available data. Right Ventricle Moderately increased right ventricular cavity size. There is moderately decreased right ventricular systolic function. Atria The left atrium is severely dilated. The right atrium is severely dilated. Aortic Valve A mechanical prosthetic aortic valve is present. The prosthetic aortic valve appears to be functioning abnormally. There is moderate aortic valve stenosis. The peak aortic velocity is 2.81 m/s. The mean gradient is 17 mmHg. The aortic valve area is 1.05 cm2. There is no aortic valve regurgitation. Mitral Valve A mechanical prosthetic mitral valve is present. The prosthetic mitral valve appears to be functioning normally. Pulmonic Valve The pulmonic valve is likely normal. Tricuspid Valve Significantly elevated right atrial pressure. Mild pulmonary hypertension is present. Great Vessels There is moderate dilatation of the ascending aorta measuring 4.40 cm. The visualized portions of the pulmonary artery and branches are normal. Venous The inferior vena cava is dilated and collapses less than 50% with inspiration. Pericardium/Pleural There is no evidence of pericardial effusion. Prior Study Comparison No significant change compared to prior study dated: 05/03/2019. Measurements 2D Linear Measurements IVSd: 0.86 0.6-0.9/0.6-1.0 cm LVIDd: 5.18 3.9-5.3/4.2-5.9 cm LVIDd Index: 2.91 2.4-3.2/2.2-3.1 cm/m2 LVIDs: 3.25 2.0-3.6 cm LVPWd: 0.79 0.7-1.1 cm LA Diam: 6.10 2.7-3.8/3.0-4.0 cm LAIDs Index: 3.43 1.5-2.3 cm/m2 LV Mass: 186.66 67-162/88-224 g LV Mass Index: 104.86 43-95/49-115 g/m2 LVOT Diam: 1.90 3.0+(-)1.3 cm 2D Systolic Function EF 4C: 46.60 >55% EF 2C: 53.10 >55% EF BiP: 50.40 >55% Mitral Valve MV VTI: 0.37 MV Pk Kali: 1.83 MV Mn Kali: 1.05 MV Pk Grad: 13.00 MV Mn Grad: 5.00 MV Pk E: 1.76 MVA Continuity: 1.29 Aortic Valve AoV Pk Kali: 2.81 AoV Mn Kali: 1.92 AoV VTI: 0.46 AoV Pk Grad: 32.00 Aov Mn Grad: 17.00 CORBY Cont.VTI: 1.05 LVOT LVOT Pk Kali: 0.99 LVOT Mn Kali: 0.69 LVOT VTI: 0.17 LVOT Pk Grad: 4.00 LVOT Mn Grad: 2.00 LVOT Diam: 1.90 LVOT Area: 2.84 Diastolic Function MV Pk E: 1.76 Right Ventricle TAPSE (mm): 3.50 TVS' Kali: 7.60 Tricuspid Valve TR Pk Kali: 2.49 TR Pk Grad: 25.00 RA Press: 15.00 RVSP: 40.00 Great Vessels Aorta Ao Asc: 4.40 2.1-3.4 cm Pulmonary Valve PV Pk Kali: 0.89 Peak PV Grad: 3.00 Updated in Other Vendor System with Status of Final Len Waterman MD electronically signed on 10/24/2022 9:41:18 PM with status of Final
[2022-10-24 07:13] LABS: Hematocrit 31.8 % (42.0-52.0); Hemoglobin 10.8 g/dl (14.0-18.0); Mean Corpuscular Hemoglobin 35.9 pg (27.0-33.0); Mean Corpuscular Volume 105.6 fL (80.0-98.0); Mean Platelet Volume 9.7 fL (9.4-12.4); Platelet Count 252 X10*3/uL (160-400); Red Blood Count 3.01 X10*6/uL (4.60-5.80); Red Cell Distribution Width 13.3 % (11.0-16.0); White Blood Count 6.6 X10*3/uL (4.8-10.8)
[2022-10-24 07:21] LABS: Prothrombin Time 66.6 SEC (10.0-13.1)
[2022-10-24 07:32] LABS: Blood Urea Nitrogen 42 mg/dL (9-16); Calcium 8.7 mg/dL (8.4-10.2); Creatinine Clr Calc Pharmacy 19.8; Estimated Glomerular Filt Rate 22; Glucose Fasting 93 mg/dL (60-99); Magnesium 2.4 mg/dL (1.6-2.6)
[2022-10-24 07:42] LABS: INTERNATIONAL NORM RATIO 5.4 (0.9-1.1)
[2022-10-24 07:46] VITALS: BP 129/75; PULSE 78; RESP 20; TEMP 36.5; O2SAT 96
[2022-10-24 07:47] LABS: Anion Gap 15 (12-20); Carbon Dioxide 26 mmol/L (22-29); Chloride 99 mmol/L (96-108); Potassium 2.8 mmol/L (3.3-5.1); Sodium 137 mmol/L (135-145)
--- NOTE | 2022-10-24 09:07 | HO.PM.IMPN ---
Subjective Subjective Date of Service: 10/24/22 Interval History: back pain, constipation Physical Exam Vital Signs: Vital Signs: Last Vital Signs Temp 97.7 F 10/24/22 07:46 Pulse 78 10/24/22 07:46 Resp 20 10/24/22 07:46 BP 129/75 10/24/22 07:46 Pulse Ox 96 10/24/22 07:46 O2 Del Method 10/24/22 07:46 BMI result Body Mass Index 20.7 General: AO X 3, no acute distress Resp: CTA bilateral, no accessory muscles used CVS: S1,S2,RRR GI: soft, non tender, distended Objective Data Active Medications Acetaminophen (Acetaminophen 325 Mg Tablet) 650 mg PO Q6H PRN PRN Reason: Pain, Mild (Pain Scale 1-3) Last Admin: 10/24/22 04:53 Dose: 650 mg Documented By: ESTEPHANIA Atorvastatin Calcium (Atorvastatin Calcium 40 Mg Tablet) 40 mg PO DAILY [facility] Bumetanide (Bumetanide 1 Mg/4 Ml Vial) 2 mg IVPUSH BID@0900,1700 [facility]; Protocol Cyanocobalamin (Cyanocobalamin (Vitamin B-12) 1,000 Mcg Tablet) 1,000 mcg PO DAILY [facility] Diltiazem HCl (Diltiazem Hcl Cd 240 Mg Cap.Er.Deg) 240 mg PO BEDTIME [facility]; Protocol Last Admin: 10/23/22 22:33 Dose: 240 mg Documented By: ESTEPHANIA Ferrous Sulfate (Ferrous Sulfate 324 Mg Tablet.Dr) 324 mg PO DAILY [facility] Fluoxetine HCl (Fluoxetine Hcl 10 Mg Capsule) 10 mg PO DAILY [facility] Folic Acid (Folic Acid 1 Mg Tablet) 1 mg PO DAILY [facility] Oxycodone HCl (Oxycodone Hcl Immed Release 5 Mg Tablet) 5 mg PO BID PRN PRN Reason: moderate pain Last Admin: 10/23/22 22:37 Dose: 5 mg Documented By: ESTEPHANIA Pharmacy Consult (Consult Rx Perform Med Rec) 1 each MISCELLANE ONCE PRN PRN Reason: Consult order Phenytoin Sodium (Phenytoin Sodium Extended 100 Mg Capsule) 200 mg PO BID [facility] Last Admin: 10/23/22 21:57 Dose: 200 mg Documented By: LILIBETH Sodium Chloride (0.9 % Sodium Chloride Flush 3 Ml Syringe) 3 ml IVFLUSH QSHIFT [facility] Last Admin: 10/23/22 22:37 Dose: 3 ml Documented By: ESTEPHANIA Tamsulosin HCl (Tamsulosin Hcl 0.4 Mg Capsule) 0.8 mg PO BEDTIME [facility] Last Admin: 10/23/22 21:57 Dose: 0.8 mg Documented By: LILIBETH Vitamin D (Cholecalciferol (Vitamin D3) 25 Mcg Tablet) 50 mcg PO DAILY [facility] Zinc Sulfate (Zinc Sulfate 220 Mg Capsule) 220 mg PO DAILY [facility] Labs 10/24/22 06:16 10/24/22 06:16 Labs: Laboratory Results - last 24 hr 10/23/22 10/23/22 10/23/22 11:53 11:53 11:53 MCV 106.3 H MCH 35.7 H MCHC 33.5 RDW 13.3 Plt Count 252 MPV 9.0 L Immature Gran % (Auto) 0.3 Neut % (Auto) 82.7 H Lymph % (Auto) 5.2 L [place] % (Auto) 9.5 Eos % (Auto) 1.6 Baso % (Auto) 0.7 Lymph # (Auto) 0.4 L [place] # (Auto) 0.7 Eos # (Auto) 0.1 Baso # (Auto) 0.1 Abs Immat Gran (auto) 0.02 Absolute Neuts (auto) 6.1 Absolute Nucleated RBC 0.000 Nucleated RBC % (auto) 0.0 PT 64.9 H INR 5.3 H* APTT 46.4 H Anion Gap 18 Estim Creat Clear Calc 15.7 Estimated GFR 17 Random Glucose 96 Fasting Glucose Lactic Acid Calcium 8.8 Magnesium 2.4 Total Bilirubin 0.6 Direct Bilirubin 0.2 AST 18 ALT 11 Alkaline Phosphatase 240 H B-Natriuretic Peptide Total Protein 7.0 Albumin 3.7 Vitamin B12 Folate TSH Urine Color Urine Appearance Urine pH Ur Specific [place] Urine Protein Urine Glucose (UA) Urine Ketones Urine Blood Urine Nitrite Ur Leukocyte Esterase Urine RBC Urine WBC Ur Squamous Epith Cells Urine Bacteria Hyaline Casts Granular Casts Ur Random Sodium Urine Creatinine COVID-19 ([facility]) COVID-19 Clin Com 10/23/22 10/23/22 10/23/22 11:53 11:53 15:02 MCV MCH MCHC RDW Plt Count MPV Immature Gran % (Auto) Neut % (Auto) Lymph % (Auto) [place] % (Auto) Eos % (Auto) Baso % (Auto) Lymph # (Auto) [place] # (Auto) Eos # (Auto) Baso # (Auto) Abs Immat Gran (auto) Absolute Neuts (auto) Absolute Nucleated RBC Nucleated RBC % (auto) PT INR APTT Anion Gap Estim Creat Clear Calc Estimated GFR Random Glucose Fasting Glucose Lactic Acid Calcium Magnesium Total Bilirubin Direct Bilirubin AST ALT Alkaline Phosphatase B-Natriuretic Peptide 730 H Total Protein Albumin Vitamin B12 Folate TSH Urine Color Urine Appearance Urine pH Ur Specific [place] Urine Protein Urine Glucose (UA) Urine Ketones Urine Blood Urine Nitrite Ur Leukocyte Esterase Urine RBC Urine WBC Ur Squamous Epith Cells Urine Bacteria Hyaline Casts Granular Casts Ur Random Sodium 33.0 Urine Creatinine 68.56 COVID-19 ([facility]) Negative COVID-19 [employer] Com See Note 10/23/22 10/23/22 10/23/22 15:02 16:10 16:10 MCV MCH MCHC RDW Plt Count MPV Immature Gran % (Auto) Neut % (Auto) Lymph % (Auto) [place] % (Auto) Eos % (Auto) Baso % (Auto) Lymph # (Auto) [place] # (Auto) Eos # (Auto) Baso # (Auto) Abs Immat Gran (auto) Absolute Neuts (auto) Absolute Nucleated RBC Nucleated RBC % (auto) PT INR APTT Anion Gap 21 H Estim Creat Clear Calc 17.6 Estimated GFR 19 Random Glucose 103 Fasting Glucose Lactic Acid 0.4 L Calcium 8.4 Magnesium Total Bilirubin Direct Bilirubin AST ALT Alkaline Phosphatase B-Natriuretic Peptide Total Protein Albumin Vitamin B12 > 2000 H Folate 18.8 TSH 0.88 Urine Color Yellow Urine Appearance Cloudy Urine pH 5.0 Ur Specific [place] 1.020 Urine Protein 30 (1+) H Urine Glucose (UA) Negative Urine Ketones Negative Urine Blood Trace H Urine Nitrite Negative Ur Leukocyte Esterase Moderate (2+) H Urine RBC 0-2 Urine WBC 21-50 H Ur Squamous Epith Cells 6-10 Urine Bacteria 4+ Hyaline Casts 0-2 Granular Casts Present Ur Random Sodium Urine Creatinine COVID-19 ([facility]) COVID-19 [employer] 10/24/22 10/24/22 10/24/22 06:16 06:16 06:16 MCV 105.6 H MCH 35.9 H MCHC 34.0 RDW 13.3 Plt Count 252 MPV 9.7 Immature Gran % (Auto) Neut % (Auto) Lymph % (Auto) [place] % (Auto) Eos % (Auto) Baso % (Auto) Lymph # (Auto) [place] # (Auto) Eos # (Auto) Baso # (Auto) Abs Immat Gran (auto) Absolute Neuts (auto) Absolute Nucleated RBC 0.000 Nucleated RBC % (auto) 0.0 PT 66.6 H INR 5.4 H* APTT Anion Gap 15 Estim Creat Clear Calc 19.8 Estimated GFR 22 Random Glucose Fasting Glucose 93 Lactic Acid Calcium 8.7 Magnesium 2.4 Total Bilirubin Direct Bilirubin AST ALT Alkaline Phosphatase B-Natriuretic Peptide Total Protein Albumin Vitamin B12 Folate TSH Urine Color Urine Appearance Urine pH Ur Specific [place] Urine Protein Urine Glucose (UA) Urine Ketones Urine Blood Urine Nitrite Ur Leukocyte Esterase Urine RBC Urine WBC Ur Squamous Epith Cells Urine Bacteria Hyaline Casts Granular Casts Ur Random Sodium Urine Creatinine COVID-19 ([facility]) COVID-19 Clin Com Assessment and Plan (1) Acute urinary retention: Status: Acute Plan 77M PMH chronic diasotlic chf, chronic afib, mechanical MVR, AVR, CAD s/p CABG, bph, htn, pulmonary fibrosis presented with low back pain, found to have anupama ANUPAMA on CKD III partially obstructive - fontana, flomax ? cardiorenal - iv diuresis, monitor closely - improving ? contrast induced nephropathy nephro eval hold losartan acute on chronic diastolic chf iv bumex echo hypokalemia replace monitor mechanical avr, mvr, chronic afib inr supratherapeutic, restart coumadin when inr<3.5 continue cardizem CAD coumadin, statin bph flomax htn cardizem pulmonary fibrosis stable dvt prophylaxis - on coumadin full code reason for continued hospitalization:anupama Time Spent With Patient Time: Total time managing care of this patient today ____ minutes. Quality Stroke Does the patient have a stroke diagnosis?: No VTE Prior VTE?: No VTE Risk Level:: Medical - moderate - high VTE Device Contraindication: Treatment Not Indicated VTE Drug Contraindication: N/A - Med Ordered
[2022-10-24] MEDS: Bumetanide 1 MG/4 ML VIAL 2 MG IVPUSH ×2 (09:18→18:09)
[2022-10-24] MEDS: FLUoxetine HCl 10 MG CAPSULE PO (09:18)
[2022-10-24] MEDS: Potassium Chloride ER 20 MEQ TAB.ER.PRT 40 MEQ PO (09:18)
[2022-10-24] MEDS: Zinc Sulfate 220 MG CAPSULE PO (09:18)
[2022-10-24] MEDS: polyethylene glycoL 3350 17 GM POWD.PACK PO (09:18)
[2022-10-24] MEDS: Cyanocobalamin (Vitamin B-12) 1,000 MCG TABLET 1000 MCG PO (09:18)
[2022-10-24] MEDS: 0.9 % Sodium Chloride Flush 3 ML SYRINGE IVFLUSH ×2 (09:18→21:02)
[2022-10-24] MEDS: Cholecalciferol (Vitamin D3) 25 MCG TABLET 50 MCG PO (09:19)
[2022-10-24] MEDS: Folic Acid 1 MG TABLET PO (09:19)
[2022-10-24] MEDS: Ferrous Sulfate 324 MG TABLET.DR PO (09:19)
[2022-10-24] MEDS: Atorvastatin Calcium 40 MG TABLET PO (09:19)
[2022-10-24] MEDS: Phenytoin Sodium Extended 100 MG CAPSULE 200 MG PO ×2 (09:19→21:01)
--- NOTE | 2022-10-24 09:49 | MHC.CM.PN ---
IMM 10/24/22, EMR REVIEWED, CM MET W/PT WHO REPORTS HE MOVED INTO [facility] ABOUT 4MOS AGO, PT REPORTS HE MANAGES HIS OWN MEDS, IS STILL INDEP W/AMBULATION/ADLS, DRIVES, STUDIO APT IS HANDICAPPED ACCESSABLE, [employer] PROVIDES 3 MEALS A DAY, [employer] AND ENTERTAINMENT FOR CLEANING AND ACTIVITIES. PT REPORTS HE GOES TO [facility] AND HAS HAD [facility] FOR INR'S HOWEVER LAST VISIT PT REPORTS HIS NURSE DIDN'T THINK HE WOULD NEED TO CONT W/[facility]NA. PT VERIFIES PCP IS MANISH SUTTON, COVID VACC X3 AND PT REPORTS HIS SON VOLODYMYR [phone] IS HIS HCP, 2ND SIGNATURE PAGE ON FILE, CM HAS ATTEMPTED TO CONTACT [facility] AND 'S OFFICE FOR COPY WITHOUT SUCCESS. ANTIC D/C HOME W/[facility] SERVICES, PT WILL NEED TRANSPORT
--- NOTE | 2022-10-24 10:29 | MHC.CM.PN ---
TIMMY RECEIVED CALL BACK FROM MARTHA AT [facility], MARTHA WILL FAX COPY OF HCP TO TIMMY OFFICE FAX.
[2022-10-24 11:01] VITALS: BP 105/61; PULSE 81; RESP 20; TEMP 36.9; O2SAT 97
[2022-10-24] MEDS: ondansetron HCL 4 MG/2 ML VIAL IVPUSH (13:02)
--- NOTE | 2022-10-24 14:52 | P.CONNP_ITS ---
History of Present Illness Reason for Consult Consult date: 10/24/22 Chief Complaint Chief complaint: anupama History of Present Illness Narrative: 77M PMH chronic diasotlic chf, mechanical MVR, AVR, CAD s/p CABG, bph, htn, pulmonary fibrosis presented with low back pain. patient was at [facility] 1 week for chf, who was discharged on 100mg bid torsemide (home dose), creatinine 1.9 at discharge. (patient is a poor historian) presented with ongoing low back pain radiating to suprapubic region, difficulty urinating, positive abdominal bloating. He denies nsaid use, chest pain, sob, fever, or chills. In ED found to have ANUPAMA with creaitnine of 3.53, hypokalemia 2.9, urinary retention of about 500cc pvr without hydro on CT abd. He was admitted for further management. Nephrology has been consulted to assist in his clinical care during his current hospital stay Review of Systems Review of Systems Yes all other systems are reviewed and are negative [facility] Social History Social History Household Members: None Housing: Assisted Living Facility Do you presently have visiting nurse or other home services: Yes Alcohol intake: never Patient Tobacco Use Status: Former Tobacco user Tobacco use type: Cigarette Smoked in Last 30 Days: No e-Cigarette/Vaping Use: Never Used Patient Interested in Nicotine Replacement: No Patient Given Instructions on How to Stop Smoking: No Second Hand Smoke Exposure: No Use of substances other than those prescribed or required for medical reasons: Yes Substance Use Type: Prescription Drugs Substance Use Type Other:: gummy cbd Substance Use Frequency: Occasionally Last Used Substance: Unknown Currently Displaying Signs/Symptoms of Drug Intoxication Withdrawal: No Any prior treatment program specific to substance use: No Have you been hit, kicked, punched, or otherwise hurt by someone within the past year? If so, by whom?: No Do you feel safe in your current relationship?: No Current Relationship Is there a partner from a previous relationship who is making you feel unsafe now?: No Are you made to feel afraid or neglected: No Advance Directives: Yes Advance Directives Information Provided: Yes Advance Directives on File: Yes Advance Directives Date on File: 10/23/22 Do you have thoughts of harming others: None Do you have a plan to hurt others: No Plan Recently lost weight without trying: No Eating poorly because of decreased appetite: Yes Poor oral hygiene: No service: No Current occupational status: retired Meds Allergies Allergy/AdvReac Type Severity Reaction Status Date / Time No Known Allergies Allergy Unverified 04/27/20 19:41 [No Known Allergies*] Active Medications: Current Medications Acetaminophen (Acetaminophen 325 Mg Tablet) 650 mg PO Q6H PRN PRN Reason: Pain, Mild (Pain Scale 1-3) Last Admin: 10/24/22 04:53 Dose: 650 mg Atorvastatin Calcium (Atorvastatin Calcium 40 Mg Tablet) 40 mg PO DAILY [facility] Last Admin: 10/24/22 09:19 Dose: 40 mg Bumetanide (Bumetanide 1 Mg/4 Ml Vial) 2 mg IVPUSH BID@0900,1700 [facility]; Protocol Last Admin: 10/24/22 09:18 Dose: 2 mg Cyanocobalamin (Cyanocobalamin (Vitamin B-12) 1,000 Mcg Tablet) 1,000 mcg PO DAILY [facility] Last Admin: 10/24/22 09:18 Dose: 1,000 mcg Diltiazem HCl (Diltiazem Hcl Cd 240 Mg Cap.Er.Deg) 240 mg PO BEDTIME [facility]; Protocol Last Admin: 10/23/22 22:33 Dose: 240 mg Ferrous Sulfate (Ferrous Sulfate 324 Mg Tablet.Dr) 324 mg PO DAILY [facility] Last Admin: 10/24/22 09:19 Dose: 324 mg Fluoxetine HCl (Fluoxetine Hcl 10 Mg Capsule) 10 mg PO DAILY [facility] Last Admin: 10/24/22 09:18 Dose: 10 mg Folic Acid (Folic Acid 1 Mg Tablet) 1 mg PO DAILY [facility] Last Admin: 10/24/22 09:19 Dose: 1 mg Ondansetron HCl (Ondansetron Hcl 4 Mg/2 Ml Vial) 4 mg IVPUSH Q8H PRN PRN Reason: nausea Last Admin: 10/24/22 13:02 Dose: 4 mg Oxycodone HCl (Oxycodone Hcl Immed Release 5 Mg Tablet) 5 mg PO BID PRN PRN Reason: moderate pain Last Admin: 10/23/22 22:37 Dose: 5 mg Pharmacy Consult (Consult Rx Perform Med Rec) 1 each MISCELLANE ONCE PRN PRN Reason: Consult order Phenytoin Sodium (Phenytoin Sodium Extended 100 Mg Capsule) 200 mg PO BID [facility] Last Admin: 10/24/22 09:19 Dose: 200 mg Polyethylene Glycol (Polyethylene Glycol 3350 17 Gm Powd.Pack) 17 gm PO DAILY [facility] Last Admin: 10/24/22 09:18 Dose: 17 gm Sodium Chloride (0.9 % Sodium Chloride Flush 3 Ml Syringe) [facility] Last Admin: 10/24/22 09:18 Dose: 3 ml Tamsulosin HCl (Tamsulosin Hcl 0.4 Mg Capsule) 0.8 mg PO BEDTIME [facility] Last Admin: 10/23/22 21:57 Dose: 0.8 mg Vitamin D (Cholecalciferol (Vitamin D3) 25 Mcg Tablet) 50 mcg PO DAILY [facility] Last Admin: 10/24/22 09:19 Dose: 50 mcg Zinc Sulfate (Zinc Sulfate 220 Mg Capsule) 220 mg PO DAILY [facility] Last Admin: 10/24/22 09:18 Dose: 220 mg Home Medications Medication Instructions Recorded Confirmed Last Taken Type bumetanide 1 mg tablet 2 mg PO BID 10/23/22 10/23/22 Unknown History cholecalciferol (vitamin D3) 50 50 mcg PO DAILY 10/23/22 10/23/22 10/23/22 History mcg (2,000 unit) capsule cyanocobalamin (vitamin B-12) 1,000 mcg PO DAILY 10/23/22 10/23/22 10/23/22 History 1,000 mcg tablet diltiazem HCl 240 mg 1 cap PO BEDTIME 10/23/22 10/23/22 10/22/22 History capsule,extended release 24 hr ferrous sulfate 325 mg (65 mg 325 mg PO DAILY 10/23/22 10/23/22 10/23/22 History iron) tablet fluoxetine 10 mg capsule 1 cap PO DAILY 10/23/22 10/23/22 10/23/22 History folic acid 800 mcg tablet 0.8 mg PO DAILY 10/23/22 10/23/22 10/23/22 History losartan 25 mg tablet 1 tab PO DAILY 10/23/22 10/23/22 10/23/22 History oxycodone-acetaminophen 5 mg-325 1 tab PO BID PRN pain 10/23/22 10/23/22 10/22/22 History mg tablet phenytoin sodium extended 100 mg 200 mg PO BID 10/23/22 10/23/22 10/23/22 History capsule rosuvastatin 10 mg tablet 1 tab PO DAILY 10/23/22 10/23/22 10/23/22 History tamsulosin 0.4 mg capsule 2 cap PO BEDTIME 10/23/22 10/23/22 10/22/22 History torsemide 100 mg tablet 100 mg PO BID 10/23/22 10/23/22 10/23/22 History warfarin 2.5 mg tablet 1.25 mg PO MOWEFR@1800 10/23/22 10/23/22 10/21/22 History warfarin 2.5 mg tablet 2.5 mg PO SUTUTHSA@1800 10/23/22 10/23/22 10/20/22 History zinc sulfate 50 mg zinc (220 mg) 50 mg PO DAILY 10/23/22 10/23/22 10/23/22 History capsule Physical Exam Vital Signs: Last Vital Signs Temp 98.5 F 10/24/22 11:01 Pulse 81 10/24/22 11:01 Resp 20 10/24/22 11:01 BP 105/61 10/24/22 11:01 Pulse Ox 97 10/24/22 11:01 O2 Del Method 10/24/22 11:01 BMI result Body Mass Index 20.7 Const General: no acute distress Eyes EOM: EOMs intact bilaterally Resp Auscultation: diminished lung sounds Cardio Rate: regular rate GI Palpation (GI): Soft to palpation Skin General skin exam: no rashes or lesions noted Results Lab Results 10/24/22 06:16 10/24/22 06:16 Lab results: Chemistry 10/23/22 10/23/22 10/24/22 11:53 16:10 06:16 Sodium 136 136 137 Potassium 2.9 L 3.1 L 2.8 L Carbon Dioxide 27 20 L 26 BUN 47 H 47 H 42 H Creatinine 3.53 H 3.16 H 2.81 H Calcium 8.8 8.4 8.7 Hematology 10/23/22 10/24/22 11:53 06:16 WBC 7.4 6.6 Hgb 10.7 L 10.8 L Plt Count 252 252 Urinalysis 10/23/22 15:02 Urine Color Yellow Urine Appearance Cloudy Urine pH 5.0 Ur Specific [place] 1.020 Urine Protein 30 (1+) H Urine Glucose (UA) Negative Urine Ketones Negative Urine Blood Trace H Urine Nitrite Negative Ur Leukocyte Esterase Moderate (2+) H Urine RBC 0-2 Urine WBC 21-50 H Ur Squamous Epith Cells 6-10 Hyaline Casts 0-2 Urine Studies 10/23/22 15:02 Urine Creatinine 68.56 Assessment and Plan (1) Acute kidney injury superimposed on chronic kidney disease: Status: Acute Plan ANUPAMA multifactorial Likely due to tubular injury as well as obstruction Also was on ARB which might have caused altered autoregulation in the kidney Was hypervolemic at presentation which has improved with diuresis ARB on hold. C/W diuresis and supportive care for now; Labs AM; Shall F/U Time Spent With Patient Time: Total time managing care of this patient today ____ minutes. Procedures Date of Service Date of Service: 10/24/22
[2022-10-24] MEDS: oxyCODONE HCl Immed Release 5 MG TABLET PO (14:58)
[2022-10-24 16:00] VITALS: BP 123/70; PULSE 78; RESP 16; TEMP 36.8; O2SAT 98
[2022-10-24 20:00] VITALS: BP 124/63; PULSE 75; RESP 20; TEMP 36.6; O2SAT 99
[2022-10-24] MEDS: dilTIAZem HCL CD 240 MG CAP.ER.DEG PO (21:01)
[2022-10-24] MEDS: Tamsulosin HCL 0.4 MG CAPSULE 0.8 MG PO (21:02)
[2022-10-25] VITALS (7 sets, daily range): BP systolic 91–137; BP diastolic 56–79; PULSE 62–84; RESP 17–20; TEMP 36.4–37.1; O2SAT 93–97; BMI 20.7
--- NOTE | 2022-10-25 02:36 | PC.NURSE ---
At 23:40 patient was found to have eaten a handful of edible marijuana gummies. Nursing pipe manufacture supervisor was notified with security being notified. MD was notified and no orders were made. Patient remains alert and oriented x4 being arousable by name with vitals remaining stable.
[2022-10-25] MEDS: oxyCODONE HCl Immed Release 5 MG TABLET PO (04:40)
[2022-10-25 07:14] LABS: Hematocrit 31.2 % (42.0-52.0); Hemoglobin 10.4 g/dl (14.0-18.0); Mean Corpuscular HGB Conc 33.3 g/dl (31.0-36.0); Mean Corpuscular Hemoglobin 36.5 pg (27.0-33.0); Mean Corpuscular Volume 109.5 fL (80.0-98.0); Platelet Count 249 X10*3/uL (160-400); Red Blood Count 2.85 X10*6/uL (4.60-5.80); Red Cell Distribution Width 13.6 % (11.0-16.0); White Blood Count 5.5 X10*3/uL (4.8-10.8)
[2022-10-25 07:33] LABS: Blood Urea Nitrogen 41 mg/dL (9-16); Calcium 8.8 mg/dL (8.4-10.2); Creatinine Clr Calc Pharmacy 19.7; Estimated Glomerular Filt Rate 22; Glucose Fasting 206 mg/dL (60-99)
[2022-10-25 07:50] LABS: Anion Gap 16 (12-20); Carbon Dioxide 26 mmol/L (22-29); Chloride 98 mmol/L (96-108); Potassium 4.3 mmol/L (3.3-5.1); Sodium 136 mmol/L (135-145)
[2022-10-25] MEDS: polyethylene glycoL 3350 17 GM POWD.PACK PO (10:42)
[2022-10-25] MEDS: Bumetanide 1 MG/4 ML VIAL 2 MG IVPUSH ×2 (10:44→17:30)
[2022-10-25] MEDS: Cholecalciferol (Vitamin D3) 25 MCG TABLET 50 MCG PO (10:44)
[2022-10-25] MEDS: Zinc Sulfate 220 MG CAPSULE PO (10:45)
[2022-10-25] MEDS: Folic Acid 1 MG TABLET PO (10:45)
[2022-10-25] MEDS: FLUoxetine HCl 10 MG CAPSULE PO (10:45)
[2022-10-25] MEDS: Cyanocobalamin (Vitamin B-12) 1,000 MCG TABLET 1000 MCG PO (10:45)
[2022-10-25] MEDS: Ferrous Sulfate 324 MG TABLET.DR PO (10:45)
[2022-10-25] MEDS: 0.9 % Sodium Chloride Flush 3 ML SYRINGE IVFLUSH ×3 (10:46→20:58)
[2022-10-25] MEDS: Atorvastatin Calcium 40 MG TABLET PO (10:46)
[2022-10-25] MEDS: Acetaminophen 325 MG TABLET 650 MG PO (11:05)
[2022-10-25] MEDS: Phenytoin Sodium Extended 100 MG CAPSULE 200 MG PO ×2 (11:08→20:57)
--- NOTE | 2022-10-25 11:48 | PM.PNNEP ---
Subjective Subjective Date of Service: 10/25/22 Interval history: Seen AM. All recent data reviewed Physical Exam Vital Signs: Vital Signs: Last Vital Signs Temp 98.8 F 10/25/22 11:37 Pulse 80 10/25/22 11:37 Resp 17 10/25/22 11:37 BP 117/72 10/25/22 11:37 Pulse Ox 95 10/25/22 11:37 O2 Del Method 10/25/22 08:00 BMI result Body Mass Index 20.7 Const: General: no acute distress Orientation/consciousness: patient oriented x3 Eyes: EOM: EOMs intact bilaterally Neck: Neck: Yes supple Resp: Auscultation: diminished lung sounds Cardio: Rate: regular rate GI: Palpation (GI): Soft to palpation Neuro: General: patient oriented x3 Objective Data Labs 10/25/22 06:18 10/25/22 06:18 Labs: Laboratory Results - last 24 hr 10/25/22 10/25/22 06:18 06:18 WBC 5.5 RBC 2.85 L Hgb 10.4 L Hct 31.2 L MCV 109.5 H MCH 36.5 H MCHC 33.3 RDW 13.6 Plt Count 249 MPV 10.0 Absolute Nucleated RBC 0.000 Nucleated RBC % (auto) 0.0 Sodium 136 Potassium 4.3 D Chloride 98 Carbon Dioxide 26 Anion Gap 16 BUN 41 H Creatinine 2.82 H Estim Creat Clear Calc 19.7 Estimated GFR 22 Fasting Glucose 206 H Calcium 8.8 Microbiology Microbiology Results: Microbiology 10/23/22 15:32 Urine clean catch - Urine whelan top Urine Culture - Final Enterococcus faecalis 10/23/22 16:08 Blood - Venous Blood Culture - Final Coag negative Staphylococcus 10/23/22 16:09 Blood - Venous Blood Culture - Preliminary No growth after 24 hours. Procedures Date of Service Date of Service: 10/25/22 Assessment & Plan Assessment and plan (1) Acute kidney injury superimposed on chronic kidney disease: Status: Acute Assessment and Plan: ANUPAMA multifactorial Likely due to tubular injury as well as obstruction Also was on ARB which might have caused altered autoregulation in the kidney Was hypervolemic at presentation which has improved with diuresis ARB on hold. C/W diuresis and supportive care for now; Labs AM; Shall F/U Progress Note: Quality Stroke Does the patient have a stroke diagnosis?: No
--- NOTE | 2022-10-25 12:07 | P.PNIM_ITS ---
Subjective Subjective Date of Service: 10/25/22 Interval History: feeling better today Physical Exam Vital Signs: Vital Signs: Last Vital Signs Temp 98.8 F 10/25/22 11:37 Pulse 80 10/25/22 11:37 Resp 17 10/25/22 11:37 BP 117/72 10/25/22 11:37 Pulse Ox 95 10/25/22 11:37 O2 Del Method 10/25/22 08:00 BMI result Body Mass Index 20.7 Const: General: no acute distress Orientation/consciousness: patient o riented x3 Eyes: EOM: EOMs intact bilaterally Neck: Neck: Yes supple Resp: Auscultation: diminished lung sounds Cardio: Rate: regular rate GI: Palpation (GI): Soft to palpation Neuro: General: patient oriented x3 Objective Data Active Medications Acetaminophen (Acetaminophen 325 Mg Tablet) 650 mg PO Q6H PRN PRN Reason: Pain, Mild (Pain Scale 1-3) Last Admin: 10/25/22 11:05 Dose: 650 mg Documented By: DAVID Atorvastatin Calcium (Atorvastatin Calcium 40 Mg Tablet) 40 mg PO DAILY [facility] Last Admin: 10/25/22 10:46 Dose: 40 mg Documented By: DAVID Bumetanide (Bumetanide 1 Mg/4 Ml Vial) 2 mg IVPUSH BID@0900,1700 [facility]; Protocol Last Admin: 10/25/22 10:44 Dose: 2 mg Documented By: DAVID Cyanocobalamin (Cyanocobalamin (Vitamin B-12) 1,000 Mcg Tablet) 1,000 mcg PO DAILY [facility] Last Admin: 10/25/22 10:45 Dose: 1,000 mcg Documented By: DAVID Diltiazem HCl (Diltiazem Hcl Cd 240 Mg Cap.Er.Deg) 240 mg PO BEDTIME [facility]; Protocol Last Admin: 10/24/22 21:01 Dose: 240 mg Documented By: INÉS Ferrous Sulfate (Ferrous Sulfate 324 Mg Tablet.Dr) 324 mg PO DAILY [facility] Last Admin: 10/25/22 10:45 Dose: 324 mg Documented By: DAVID Fluoxetine HCl (Fluoxetine Hcl 10 Mg Capsule) 10 mg PO DAILY [facility] Last Admin: 10/25/22 10:45 Dose: 10 mg Documented By: DAVID Folic Acid (Folic Acid 1 Mg Tablet) 1 mg PO DAILY [facility] Last Admin: 10/25/22 10:45 Dose: 1 mg Documented By: DAVID Ondansetron HCl (Ondansetron Hcl 4 Mg/2 Ml Vial) 4 mg IVPUSH Q8H PRN PRN Reason: nausea Last Admin: 10/24/22 13:02 Dose: 4 mg Documented By: CHARLI Oxycodone HCl (Oxycodone Hcl Immed Release 5 Mg Tablet) 5 mg PO BID PRN PRN Reason: moderate pain Last Admin: 10/25/22 04:40 Dose: 5 mg Documented By: INÉS Pharmacy Consult (Consult Rx Perform Med Rec) 1 each MISCELLANE ONCE PRN PRN Reason: Consult order Phenytoin Sodium (Phenytoin Sodium Extended 100 Mg Capsule) 200 mg PO BID [facility] Last Admin: 10/25/22 11:08 Dose: 200 mg Documented By: DAVID Polyethylene Glycol (Polyethylene Glycol 3350 17 Gm Powd.Pack) 17 gm PO DAILY [facility] Last Admin: 10/25/22 10:42 Dose: 17 gm Documented By: DAVID Sodium Chloride (0.9 % Sodium Chloride Flush 3 Ml Syringe) [facility] Admin: 10/25/22 10:46 Dose: 3 ml Documented By: DAVID Tamsulosin HCl (Tamsulosin Hcl 0.4 Mg Capsule) 0.8 mg PO BEDTIME [facility] Last Admin: 10/24/22 21:02 Dose: 0.8 mg Documented By: INÉS Vitamin D (Cholecalciferol (Vitamin D3) 25 Mcg Tablet) 50 mcg PO DAILY [facility] Last Admin: 10/25/22 10:44 Dose: 50 mcg Documented By: DAVID Zinc Sulfate (Zinc Sulfate 220 Mg Capsule) 220 mg PO DAILY [facility] Last Admin: 10/25/22 10:45 Dose: 220 mg Documented By: DAVID Labs 10/25/22 06:18 10/25/22 06:18 Labs: Laboratory Results - last 24 hr 10/25/22 10/25/22 06:18 06:18 MCV 109.5 H MCH 36.5 H MCHC 33.3 RDW 13.6 Plt Count 249 MPV 10.0 Absolute Nucleated RBC 0.000 Nucleated RBC % (auto) 0.0 Anion Gap 16 Estim Creat Clear Calc 19.7 Estimated GFR 22 Fasting Glucose 206 H Calcium 8.8 Microbiology Microbiology Results: Microbiology 10/23/22 15:32 Urine Culture - Final Urine clean catch - Urine whelan top Enterococcus faecalis 10/23/22 16:08 Blood Culture - Final Blood - Venous Coag negative Staphylococcus 10/23/22 16:09 Blood Culture - Preliminary Blood - Venous No growth after 24 hours. Assessment and Plan (1) Acute urinary retention: Status: Acute Plan 77M PMH chronic diasotlic chf, chronic afib, mechanical MVR, AVR, CAD s/p CABG, bph, htn, pulmonary fibrosis presented with low back pain, found to have anupama ANUPAMA on CKD III partially obstructive - fontana, flomax ? cardiorenal - iv diuresis, monitor closely - improving ? contrast induced nephropathy nephro appreciated holding losartan acute on chronic right sided chf cotninue bumex 2mg iv bid, on dc will restart torsemide at previous reduced dose of 80mg bid po hypokalemia replaced monitor mechanical avr, mvr, chronic afib inr supratherapeutic, restart coumadin when inr<3.5 continue cardizem CAD coumadin, statin bph flomax htn cardizem pulmonary fibrosis stable dvt prophylaxis - on coumadin full code reason for continued hospitalization:anupama Time Spent With Patient Time: Total time managing care of this patient today ____ minutes. Quality Stroke Does the patient have a stroke diagnosis?: No VTE Prior VTE?: No VTE Risk Level:: Medical - moderate - high VTE Device Contraindication: Treatment Not Indicated VTE Drug Contraindication: N/A - Med Ordered
--- NOTE | 2022-10-25 13:43 | MHC.CLN ---
NUTRITION ADDING ENSURE BID PER DISCUSSION WITH PATIENT. PROVIDES 700 KCALS, 40 G PROTEIN. PATIENT IS 88% IBW, WITH BMI=20.7. REPORTS THAT ATE WELL AT LUNCH TODAY.
[2022-10-25] MEDS: Tamsulosin HCL 0.4 MG CAPSULE 0.8 MG PO (20:57)
[2022-10-25] MEDS: dilTIAZem HCL CD 240 MG CAP.ER.DEG PO (20:57)
[2022-10-26] MEDS: oxyCODONE HCl Immed Release 5 MG TABLET PO ×2 (00:18→17:12)
[2022-10-26 03:45] VITALS: BP 125/72; PULSE 60; RESP 17; TEMP 36.4; O2SAT 96
[2022-10-26 07:29] LABS: Hematocrit 30.1 % (42.0-52.0); Hemoglobin 10.1 g/dl (14.0-18.0); Mean Corpuscular HGB Conc 33.6 g/dl (31.0-36.0); Mean Corpuscular Hemoglobin 35.9 pg (27.0-33.0); Mean Corpuscular Volume 107.1 fL (80.0-98.0); Mean Platelet Volume 9.7 fL (9.4-12.4); Platelet Count 220 X10*3/uL (160-400); Red Blood Count 2.81 X10*6/uL (4.60-5.80); Red Cell Distribution Width 13.5 % (11.0-16.0); White Blood Count 7.4 X10*3/uL (4.8-10.8)
[2022-10-26 07:34] LABS: INTERNATIONAL NORM RATIO 2.5 (0.9-1.1); Prothrombin Time 29.7 SEC (10.0-13.1)
[2022-10-26 08:00] VITALS: BP 139/70; PULSE 80; RESP 18; TEMP 36.8; O2SAT 97
[2022-10-26 08:18] LABS: Anion Gap 15 (12-20); Blood Urea Nitrogen 47 mg/dL (9-16); Calcium 9.1 mg/dL (8.4-10.2); Carbon Dioxide 25 mmol/L (22-29); Chloride 102 mmol/L (96-108); Creatinine Clr Calc Pharmacy 22.2; Estimated Glomerular Filt Rate 25; Glucose Fasting 89 mg/dL (60-99); Potassium 4.2 mmol/L (3.3-5.1); Sodium 138 mmol/L (135-145)
[2022-10-26] MEDS: Bumetanide 1 MG/4 ML VIAL 2 MG IVPUSH ×2 (08:28→17:13)
[2022-10-26] MEDS: Acetaminophen 325 MG TABLET 650 MG PO (08:31)
[2022-10-26] MEDS: FLUoxetine HCl 10 MG CAPSULE PO (08:33)
[2022-10-26] MEDS: Cholecalciferol (Vitamin D3) 25 MCG TABLET 50 MCG PO (08:33)
[2022-10-26] MEDS: Cyanocobalamin (Vitamin B-12) 1,000 MCG TABLET 1000 MCG PO (08:33)
[2022-10-26] MEDS: Ferrous Sulfate 324 MG TABLET.DR PO (08:33)
[2022-10-26] MEDS: Folic Acid 1 MG TABLET PO (08:33)
[2022-10-26] MEDS: Atorvastatin Calcium 40 MG TABLET PO (08:33)
[2022-10-26] MEDS: Phenytoin Sodium Extended 100 MG CAPSULE 200 MG PO ×2 (08:33→20:05)
[2022-10-26] MEDS: polyethylene glycoL 3350 17 GM POWD.PACK PO (08:34)
[2022-10-26] MEDS: Zinc Sulfate 220 MG CAPSULE PO (08:34)
[2022-10-26] MEDS: 0.9 % Sodium Chloride Flush 3 ML SYRINGE IVFLUSH ×3 (08:42→20:09)
--- NOTE | 2022-10-26 08:54 | PM.PNNEP ---
Subjective Subjective Date of Service: 10/26/22 Interval history: C/O back pain. Feeling uncomfortable with it Physical Exam Vital Signs: Vital Signs: Last Vital Signs Temp 98.3 F 10/26/22 08:00 Pulse 80 10/26/22 08:00 Resp 18 10/26/22 08:00 BP 139/70 10/26/22 08:00 Pulse Ox 97 10/26/22 08:00 O2 Del Method 10/26/22 08:00 BMI result Body Mass Index 20.7 Const: General: cooperative Orientation/consciousness: patient oriented x3 Eyes: EOM: EOMs intact bilaterally Resp: Auscultation: diminished lung sounds Cardio: Rate: regular rate GI: Palpation (GI): Soft to palpation Neuro: General: patient oriented x3 and moves all extremities Objective Data Labs 10/26/22 06:40 10/26/22 06:40 Labs: Laboratory Results - last 24 hr 10/26/22 10/26/22 10/26/22 06:40 06:40 06:40 WBC 7.4 RBC 2.81 L Hgb 10.1 L Hct 30.1 L MCV 107.1 H MCH 35.9 H MCHC 33.6 RDW 13.5 Plt Count 220 MPV 9.7 Absolute Nucleated RBC 0.000 Nucleated RBC % (auto) 0.0 PT 29.7 H INR 2.5 H D Sodium 138 Potassium 4.2 Chloride 102 Carbon Dioxide 25 Anion Gap 15 BUN 47 H Creatinine 2.51 H Estim Creat Clear Calc 22.2 Estimated GFR 25 Fasting Glucose 89 Calcium 9.1 Microbiology Microbiology Results: Microbiology 10/23/22 16:09 Blood - Venous Blood Culture - Preliminary No growth after 48 hours. 10/23/22 15:32 Urine clean catch - Urine whelan top Urine Culture - Final Enterococcus faecalis 10/23/22 16:08 Blood - Venous Blood Culture - Final Coag negative Staphylococcus Procedures Date of Service Date of Service: 10/26/22 Assessment & Plan Assessment and plan (1) Acute kidney injury superimposed on chronic kidney disease: Status: Acute Assessment and Plan: ANUPAMA multifactorial Likely due to tubular injury as well as obstruction Also was on ARB which might have caused altered autoregulation in the kidney Was hypervolemic at presentation which has improved with diuresis ARB on hold. C/W diuresis and supportive care for now; Labs AM; Shall F/U Time Spent With Patient Time: Total time managing care of this patient today ____ minutes. Progress Note: Quality Stroke Does the patient have a stroke diagnosis?: No
--- NOTE | 2022-10-26 10:11 | P.PNIM_ITS ---
Subjective Subjective Date of Service: 10/26/22 Interval History: severe back pain Physical Exam Vital Signs: Vital Signs: Last Vital Signs Temp 98.3 F 10/26/22 08:00 Pulse 80 10/26/22 08:00 Resp 18 10/26/22 08:00 BP 139/70 10/26/22 08:00 Pulse Ox 97 10/26/22 08:00 O2 Del Method 10/26/22 08:00 BMI result Body Mass Index 20.7 Const: General: cooperative Orientation/consciousness: patient oriented x3 Eyes: EOM: EOMs intact bilaterally Resp: Auscultation: diminished lung sounds Cardio: Rate: regular rate GI: Palpation (GI): Soft to palpation Neuro: General: patient oriented x3 and moves all extremities Objective Data Active Medications Acetaminophen (Acetaminophen 325 Mg Tablet) 650 mg PO Q6H PRN PRN Reason: Pain, Mild (Pain Scale 1-3) Last Admin: 10/26/22 08:31 Dose: 650 mg Documented By: RUKHSANA Atorvastatin Calcium (Atorvastatin Calcium 40 Mg Tablet) 40 mg PO DAILY [facility] Last Admin: 10/26/22 08:33 Dose: 40 mg Documented By: RUKHSANA Bumetanide (Bumetanide 1 Mg/4 Ml Vial) 2 mg IVPUSH BID@0900,1700 [facility]; Protocol Last Admin: 10/26/22 08:28 Dose: 2 mg Documented By: RUKHSANA Cyanocobalamin (Cyanocobalamin (Vitamin B-12) 1,000 Mcg Tablet) 1,000 mcg PO DAILY [facility] Last Admin: 10/26/22 08:33 Dose: 1,000 mcg Documented By: RUKHSANA Diltiazem HCl (Diltiazem Hcl Cd 240 Mg Cap.Er.Deg) 240 mg PO BEDTIME [facility]; Protocol Last Admin: 10/25/22 20:57 Dose: 240 mg Documented By: AFTAB Ferrous Sulfate (Ferrous Sulfate 324 Mg Tablet.Dr) 324 mg PO DAILY [facility] Last Admin: 10/26/22 08:33 Dose: 324 mg Documented By: RUKHSANA Fluoxetine HCl (Fluoxetine Hcl 10 Mg Capsule) 10 mg PO DAILY [facility] Last Admin: 10/26/22 08:33 Dose: 10 mg Documented By: RUKHSANA Folic Acid (Folic Acid 1 Mg Tablet) 1 mg PO DAILY [facility] Last Admin: 10/26/22 08:33 Dose: 1 mg Documented By: RUKHSANA Hydromorphone HCl (Hydromorphone Hcl 0.5 Mg/0.5 Ml Syringe) 0.5 mg IVPUSH Q4H PRN; Protocol PRN Reason: moderate pain Ondansetron HCl (Ondansetron Hcl 4 Mg/2 Ml Vial) 4 mg IVPUSH Q8H PRN PRN Reason: nausea Last Admin: 10/24/22 13:02 Dose: 4 mg Documented By: SOLDONG Oxycodone HCl (Oxycodone Hcl Immed Release 5 Mg Tablet) 5 mg PO BID PRN PRN Reason: moderate pain Last Admin: 10/26/22 00:18 Dose: 5 mg Documented By: AFTAB Pharmacy Consult (Consult Rx Perform Med Rec) 1 each MISCELLANE ONCE PRN PRN Reason: Consult order Phenytoin Sodium (Phenytoin Sodium Extended 100 Mg Capsule) 200 mg PO BID [facility] Last Admin: 10/26/22 08:33 Dose: 200 mg Documented By: RUKHSANA Polyethylene Glycol (Polyethylene Glycol 3350 17 Gm Powd.Pack) 17 gm PO DAILY [facility] Last Admin: 10/26/22 08:34 Dose: 17 gm Documented By: RUKHSANA Sodium Chloride (0.9 % Sodium Chloride Flush 3 Ml Syringe) 3 ml IVFLUSH QSHIFT [facility] Last Admin: 10/26/22 08:42 Dose: 3 ml Documented By: RUKHSANA Tamsulosin HCl (Tamsulosin Hcl 0.4 Mg Capsule) 0.8 mg PO BEDTIME [facility] Last Admin: 10/25/22 20:57 Dose: 0.8 mg Documented By: AFTAB Vitamin D (Cholecalciferol (Vitamin D3) 25 Mcg Tablet) 50 mcg PO DAILY [facility] Last Admin: 10/26/22 08:33 Dose: 50 mcg Documented By: RUKHSANA Warfarin Sodium (Warfarin Sodium 2.5 Mg Tablet) 2.5 mg PO SUTUTHSA@1800 [facility] Warfarin Sodium (Warfarin Sodium 1.25 Mg Halftab) 1.25 mg PO MOWEFR@1800 [facility] Zinc Sulfate (Zinc Sulfate 220 Mg Capsule) 220 mg PO DAILY [facility] Last Admin: 10/26/22 08:34 Dose: 220 mg Documented By: RUKHSANA Labs 10/26/22 06:40 10/26/22 06:40 Labs: Laboratory Results - last 24 hr 10/26/22 10/26/22 10/26/22 06:40 06:40 06:40 MCV 107.1 H MCH 35.9 H MCHC 33.6 RDW 13.5 Plt Count 220 MPV 9.7 Absolute Nucleated RBC 0.000 Nucleated RBC % (auto) 0.0 PT 29.7 H INR 2.5 H D Anion Gap 15 Estim Creat Clear Calc 22.2 Estimated GFR 25 Fasting Glucose 89 Calcium 9.1 Microbiology Microbiology Results: Microbiology 10/23/22 16:09 Blood Culture - Preliminary Blood - Venous No growth after 48 hours. 10/23/22 15:32 Urine Culture - Final Urine clean catch - Urine whelan top Enterococcus faecalis 10/23/22 16:08 Blood Culture - Final Blood - Venous Coag negative Staphylococcus Assessment and Plan (1) Acute urinary retention: Status: Acute Plan 77M PMH chronic diasotlic chf, chronic afib, mechanical MVR, AVR, CAD s/p CABG, bph, htn, pulmonary fibrosis presented with low back pain, found to have anupama ANUPAMA on CKD III partially obstructive - fontana, flomax ? cardiorenal - iv diuresis, monitor closely - improving nephro appreciated holding losartan acute on chronic right sided chf cotninue bumex 2mg iv bid, on dc will restart torsemide at previous reduced dose of 80mg bid po back pain pain control, PT eval hypokalemia replaced monitor mechanical avr, mvr, chronic afib inr supratherapeutic, restart coumadin when inr<3.5 continue cardizem CAD coumadin, statin bph flomax htn cardizem pulmonary fibrosis stable dvt prophylaxis - on coumadin full code reason for continued hospitalization:anupama Time Spent With Patient Time: Total time managing care of this patient today ____ minutes. Quality Stroke Does the patient have a stroke diagnosis?: No VTE Prior VTE?: No VTE Risk Level:: Medical - moderate - high VTE Device Contraindication: Treatment Not Indicated VTE Drug Contraindication: N/A - Med Ordered
[2022-10-26] MEDS: HYDROmorphone HCl 0.5 MG/0.5 ML SYRINGE IVPUSH ×2 (10:18→20:02)
[2022-10-26 11:51] VITALS: BP 112/67; PULSE 62; RESP 18; TEMP 37; O2SAT 96
[2022-10-26 15:20] VITALS: BP 140/67; PULSE 73; RESP 14; TEMP 36.6; O2SAT 99
[2022-10-26 19:15] VITALS: BP 144/71; PULSE 76; RESP 15; TEMP 36.8; O2SAT 100
[2022-10-26] MEDS: Tamsulosin HCL 0.4 MG CAPSULE 0.8 MG PO (20:06)
[2022-10-26] MEDS: dilTIAZem HCL CD 240 MG CAP.ER.DEG PO (20:07)
[2022-10-26 23:50] VITALS: BP 133/76; PULSE 73; RESP 14; TEMP 36.2; O2SAT 98
[2022-10-27 04:00] VITALS: BP 118/74; PULSE 79; RESP 16; TEMP 37.2; O2SAT 98
[2022-10-27] MEDS: HYDROmorphone HCl 0.5 MG/0.5 ML SYRINGE IVPUSH (04:28)
[2022-10-27 07:14] LABS: Hematocrit 30.3 % (42.0-52.0); Hemoglobin 10.1 g/dl (14.0-18.0); Mean Corpuscular HGB Conc 33.3 g/dl (31.0-36.0); Mean Corpuscular Hemoglobin 36.2 pg (27.0-33.0); Mean Corpuscular Volume 108.6 fL (80.0-98.0); Mean Platelet Volume 9.8 fL (9.4-12.4); Platelet Count 226 X10*3/uL (160-400); Red Blood Count 2.79 X10*6/uL (4.60-5.80); Red Cell Distribution Width 13.6 % (11.0-16.0); White Blood Count 6.9 X10*3/uL (4.8-10.8)
[2022-10-27 07:20] LABS: INTERNATIONAL NORM RATIO 1.4 (0.9-1.1); Prothrombin Time 15.8 SEC (10.0-13.1)
[2022-10-27 07:51] LABS: Anion Gap 13 (12-20); Blood Urea Nitrogen 38 mg/dL (9-16); Calcium 9.4 mg/dL (8.4-10.2); Carbon Dioxide 28 mmol/L (22-29); Chloride 102 mmol/L (96-108); Creatinine Clr Calc Pharmacy 28.4; Estimated Glomerular Filt Rate 33; Glucose Fasting 97 mg/dL (60-99); Potassium 3.9 mmol/L (3.3-5.1); Sodium 139 mmol/L (135-145)
[2022-10-27 07:56] VITALS: BP 115/62; PULSE 94; RESP 18; TEMP 37.4; O2SAT 98
--- NOTE | 2022-10-27 08:46 | PM.PNNEP ---
Subjective Subjective Date of Service: 10/27/22 Interval history: Events noted. All recent data reviewed Physical Exam Vital Signs: Vital Signs: Last Vital Signs Temp 99.3 F 10/27/22 07:56 Pulse 94 10/27/22 07:56 Resp 18 10/27/22 07:56 BP 115/62 10/27/22 07:56 Pulse Ox 98 10/27/22 07:56 O2 Del Method 10/27/22 07:56 BMI result Body Mass Index 20.7 Const: General: comfortable Eyes: EOM: EOMs intact bilaterally Neck: Neck: Yes supple Resp: Auscultation: diminished lung sounds Cardio: Rate: regular rate GI: Palpation (GI): Soft to palpation Neuro: General: moves all extremities Objective Data Labs 10/27/22 06:44 10/27/22 06:44 Labs: Laboratory Results - last 24 hr 10/27/22 10/27/22 10/27/22 06:44 06:44 06:44 WBC 6.9 RBC 2.79 L Hgb 10.1 L Hct 30.3 L MCV 108.6 H MCH 36.2 H MCHC 33.3 RDW 13.6 Plt Count 226 MPV 9.8 Absolute Nucleated RBC 0.000 Nucleated RBC % (auto) 0.0 PT 15.8 H INR 1.4 H Sodium 139 Potassium 3.9 Chloride 102 Carbon Dioxide 28 Anion Gap 13 BUN 38 H Creatinine 1.96 H Estim Creat Clear Calc 28.4 Estimated GFR 33 Fasting Glucose 97 Calcium 9.4 Microbiology Microbiology Results: Microbiology 10/23/22 16:09 Blood - Venous Blood Culture - Preliminary No growth after 48 hours. 10/23/22 15:32 Urine clean catch - Urine whelan top Urine Culture - Final Enterococcus faecalis 10/23/22 16:08 Blood - Venous Blood Culture - Final Coag negative Staphylococcus Procedures Date of Service Date of Service: 10/27/22 Assessment & Plan Assessment and plan (1) Acute kidney injury superimposed on chronic kidney disease: Status: Acute Assessment and Plan: ANUPAMA multifactorial- improved; Renal function back to baseline Likely due to tubular injury as well as obstruction Also was on ARB which might have caused altered autoregulation in the kidney Was hypervolemic at presentation which has improved with diuresis ARB on hold. C/W diuresis( could switch to PO) and supportive care for now Labs AM; Shall F/U( He wants to follow with [facility] as outpatient) Time Spent With Patient Time: Total time managing care of this patient today ____ minutes. Progress Note: Quality Stroke Does the patient have a stroke diagnosis?: No
[2022-10-27] MEDS: 0.9 % Sodium Chloride Flush 3 ML SYRINGE IVFLUSH ×2 (09:05→17:23)
[2022-10-27] MEDS: Bumetanide 1 MG/4 ML VIAL 2 MG IVPUSH ×2 (09:06→17:21)
[2022-10-27] MEDS: Ferrous Sulfate 324 MG TABLET.DR PO (09:07)
[2022-10-27] MEDS: Zinc Sulfate 220 MG CAPSULE PO (09:07)
[2022-10-27] MEDS: FLUoxetine HCl 10 MG CAPSULE PO (09:07)
[2022-10-27] MEDS: Phenytoin Sodium Extended 100 MG CAPSULE 200 MG PO ×2 (09:07→20:40)
[2022-10-27] MEDS: Atorvastatin Calcium 40 MG TABLET PO (09:07)
[2022-10-27] MEDS: Folic Acid 1 MG TABLET PO (09:08)
[2022-10-27] MEDS: Cholecalciferol (Vitamin D3) 25 MCG TABLET 50 MCG PO (09:08)
[2022-10-27] MEDS: Cyanocobalamin (Vitamin B-12) 1,000 MCG TABLET 1000 MCG PO (09:08)
[2022-10-27] MEDS: polyethylene glycoL 3350 17 GM POWD.PACK PO (09:08)
--- NOTE | 2022-10-27 10:30 | HO.PM.IMPN ---
Subjective Subjective Date of Service: 10/27/22 Interval History: severe back pain Physical Exam Vital Signs: Vital Signs: Last Vital Signs Temp 99.3 F 10/27/22 07:56 Pulse 94 10/27/22 07:56 Resp 18 10/27/22 07:56 BP 115/62 10/27/22 07:56 Pulse Ox 98 10/27/22 07:56 O2 Del Method 10/27/22 07:56 BMI result Body Mass Index 20.7 Const: General: comfortable Eyes: EOM: EOMs intact bilaterally Neck: Neck: Yes supple Resp: Auscultation: diminished lung sounds Cardio: Rate: regular rate GI: Palpation (GI): Soft to palpation Neuro: General: moves all extremities Objective Data Active Medications Acetaminophen (Acetaminophen 325 Mg Tablet) 650 mg PO Q6H PRN PRN Reason: Pain, Mild (Pain Scale 1-3) Last Admin: 10/26/22 08:31 Dose: 650 mg Documented By: RUKHSANA Atorvastatin Calcium (Atorvastatin Calcium 40 Mg Tablet) 40 mg PO DAILY [facility] Last Admin: 10/27/22 09:07 Dose: 40 mg Documented By: RUDOLPH Bumetanide (Bumetanide 1 Mg/4 Ml Vial) 2 mg IVPUSH BID@0900,1700 [facility]; Protocol Last Admin: 10/27/22 09:06 Dose: 2 mg Documented By: RUDOLPH Cyanocobalamin (Cyanocobalamin (Vitamin B-12) 1,000 Mcg Tablet) 1,000 mcg PO DAILY [facility] Last Admin: 10/27/22 09:08 Dose: 1,000 mcg Documented By: RUDOLPH Diltiazem HCl (Diltiazem Hcl Cd 240 Mg Cap.Er.Deg) 240 mg PO BEDTIME [facility]; Protocol Last Admin: 10/26/22 20:07 Dose: 240 mg Documented By: AFTAB Ferrous Sulfate (Ferrous Sulfate 324 Mg Tablet.Dr) 324 mg PO DAILY [facility] Last Admin: 10/27/22 09:07 Dose: 324 mg Documented By: RUDOLPH Fluoxetine HCl (Fluoxetine Hcl 10 Mg Capsule) 10 mg PO DAILY [facility] Last Admin: 10/27/22 09:07 Dose: 10 mg Documented By: RUDOLPH Folic Acid (Folic Acid 1 Mg Tablet) 1 mg PO DAILY [facility] Last Admin: 10/27/22 09:08 Dose: 1 mg Documented By: RUDOLPH Hydromorphone HCl (Hydromorphone Hcl 0.5 Mg/0.5 Ml Syringe) 0.5 mg IVPUSH Q4H PRN; Protocol PRN Reason: moderate pain Last Admin: 10/27/22 04:28 Dose: 0.5 mg Documented By: AFTAB Ondansetron HCl (Ondansetron Hcl 4 Mg/2 Ml Vial) 4 mg IVPUSH Q8H PRN PRN Reason: nausea Last Admin: 10/24/22 13:02 Dose: 4 mg Documented By: SOLISPE Oxycodone HCl (Oxycodone Hcl Immed Release 5 Mg Tablet) 5 mg PO BID PRN PRN Reason: moderate pain Last Admin: 10/26/22 17:12 Dose: 5 mg Documented By: RUKHSANA Pharmacy Consult (Consult Rx Perform Med Rec) 1 each MISCELLANE ONCE PRN PRN Reason: Consult order Phenytoin Sodium (Phenytoin Sodium Extended 100 Mg Capsule) 200 mg PO BID [facility] Last Admin: 10/27/22 09:07 Dose: 200 mg Documented By: RUDOLPH Polyethylene Glycol (Polyethylene Glycol 3350 17 Gm Powd.Pack) 17 gm PO DAILY [facility] Last Admin: 10/27/22 09:08 Dose: 17 gm Documented By: RUDOLPH Sodium Chloride (0.9 % Sodium Chloride Flush 3 Ml Syringe) 3 ml IVFLUSH QSHIFT [facility] Last Admin: 10/27/22 09:05 Dose: 3 ml Documented By: RUDOLPH Tamsulosin HCl (Tamsulosin Hcl 0.4 Mg Capsule) 0.8 mg PO BEDTIME [facility] Last Admin: 10/26/22 20:06 Dose: 0.8 mg Documented By: AFTAB Vitamin D (Cholecalciferol (Vitamin D3) 25 Mcg Tablet) 50 mcg PO DAILY [facility] Last Admin: 10/27/22 09:08 Dose: 50 mcg Documented By: RUDOLPH Warfarin Sodium (Warfarin Sodium 2.5 Mg Tablet) 2.5 mg PO SUTUTHSA@1800 [facility] Last Admin: 10/26/22 17:13 Dose: Not Given Documented By: RUKHSANA Non-Admin Reason: Patient Refused Warfarin Sodium (Warfarin Sodium 1.25 Mg Halftab) 1.25 mg PO MOWEFR@1800 [facility] Warfarin Sodium (Warfarin Sodium 4 Mg Tablet) 4 mg PO ONCE@1800 [facility] Stop: 10/27/22 18:01 Zinc Sulfate (Zinc Sulfate 220 Mg Capsule) 220 mg PO DAILY [facility] Last Admin: 10/27/22 09:07 Dose: 220 mg Documented By: RUDOLPH Labs 10/27/22 06:44 10/27/22 06:44 Labs: Laboratory Results - last 24 hr 10/27/22 10/27/22 10/27/22 06:44 06:44 06:44 MCV 108.6 H MCH 36.2 H MCHC 33.3 RDW 13.6 Plt Count 226 MPV 9.8 Absolute Nucleated RBC 0.000 Nucleated RBC % (auto) 0.0 PT 15.8 H INR 1.4 H Anion Gap 13 Estim Creat Clear Calc 28.4 Estimated GFR 33 Fasting Glucose 97 Calcium 9.4 Assessment and Plan (1) Acute urinary retention: Status: Acute Plan 77M PMH chronic diasotlic chf, chronic afib, mechanical MVR, AVR, CAD s/p CABG, bph, htn, pulmonary fibrosis presented with low back pain, found to have anupama ANUPAMA on CKD III partially obstructive - fontana, flomax ? cardiorenal - iv diuresis, monitor closely - continues to improve nephro appreciated holding losartan acute on chronic right sided chf cotninue bumex 2mg iv bid, on dc will restart torsemide at previous reduced dose of 80mg bid po back pain pain control, PT eval hypokalemia replaced monitor mechanical avr, mvr, chronic afib coumadin, inr goal 2.5-3.5 continue cardizem CAD coumadin, statin bph flomax htn cardizem pulmonary fibrosis stable dvt prophylaxis - on coumadin full code reason for continued hospitalization: severe pain Time Spent With Patient Time: Total time managing care of this patient today ____ minutes. Quality Stroke Does the patient have a stroke diagnosis?: No VTE Prior VTE?: No VTE Risk Level:: Medical - moderate - high VTE Device Contraindication: Treatment Not Indicated VTE Drug Contraindication: N/A - Med Ordered
[2022-10-27 11:45] VITALS: BP 113/62; PULSE 75; RESP 18; TEMP 37.2; O2SAT 95
[2022-10-27 15:36] VITALS: BP 125/65; PULSE 77; RESP 14; TEMP 36.8; O2SAT 97
[2022-10-27] MEDS: Warfarin Sodium 4 MG TABLET PO (17:21)
[2022-10-27 19:21] VITALS: BP 146/79; PULSE 82; RESP 15; TEMP 36.1; O2SAT 96
[2022-10-27] MEDS: dilTIAZem HCL CD 240 MG CAP.ER.DEG PO (20:41)
[2022-10-27] MEDS: Tamsulosin HCL 0.4 MG CAPSULE 0.8 MG PO (20:41)
[2022-10-27 23:11] VITALS: BP 134/71; PULSE 88; RESP 16; TEMP 37.2; O2SAT 98
[2022-10-28 03:54] VITALS: BP 102/59; PULSE 88; RESP 18; TEMP 37; O2SAT 97
[2022-10-28 06:16] LABS: Hematocrit 29.8 % (42.0-52.0); Hemoglobin 9.9 g/dl (14.0-18.0); Mean Corpuscular HGB Conc 33.2 g/dl (31.0-36.0); Mean Corpuscular Hemoglobin 35.5 pg (27.0-33.0); Mean Corpuscular Volume 106.8 fL (80.0-98.0); Mean Platelet Volume 9.8 fL (9.4-12.4); Platelet Count 211 X10*3/uL (160-400); Red Blood Count 2.79 X10*6/uL (4.60-5.80); Red Cell Distribution Width 13.2 % (11.0-16.0); White Blood Count 6.8 X10*3/uL (4.8-10.8)
[2022-10-28 06:19] LABS: INTERNATIONAL NORM RATIO 1.3 (0.9-1.1); Prothrombin Time 15.2 SEC (10.0-13.1)
[2022-10-28 06:53] LABS: Anion Gap 14 (12-20); Blood Urea Nitrogen 31 mg/dL (9-16); Calcium 9.2 mg/dL (8.4-10.2); Carbon Dioxide 28 mmol/L (22-29); Chloride 102 mmol/L (96-108); Creatinine Clr Calc Pharmacy 34.4; Estimated Glomerular Filt Rate 42; Glucose Fasting 91 mg/dL (60-99); Sodium 140 mmol/L (135-145)
[2022-10-28 07:47] VITALS: BP 145/70; PULSE 88; RESP 20; TEMP 36.6; O2SAT 97
[2022-10-28 08:55] LABS: Hematocrit 31.3 % (42.0-52.0); Hemoglobin 10.3 g/dl (14.0-18.0); Mean Corpuscular HGB Conc 32.9 g/dl (31.0-36.0); Mean Corpuscular Hemoglobin 35.8 pg (27.0-33.0); Mean Corpuscular Volume 108.7 fL (80.0-98.0); Mean Platelet Volume 9.8 fL (9.4-12.4); Platelet Count 235 X10*3/uL (160-400); Red Blood Count 2.88 X10*6/uL (4.60-5.80); Red Cell Distribution Width 13.5 % (11.0-16.0); White Blood Count 7.2 X10*3/uL (4.8-10.8)
[2022-10-28 09:10] LABS: INTERNATIONAL NORM RATIO 1.4 (0.9-1.1); Prothrombin Time 15.7 SEC (10.0-13.1)
[2022-10-28 09:13] LABS: PTT Heparin Drip 31.7 SEC (53-77.9)
[2022-10-28] MEDS: polyethylene glycoL 3350 17 GM POWD.PACK PO (10:22)
[2022-10-28] MEDS: 0.9 % Sodium Chloride Flush 3 ML SYRINGE IVFLUSH ×4 (10:22→23:07)
[2022-10-28] MEDS: Acetaminophen 325 MG TABLET 650 MG PO ×2 (10:22→20:38)
[2022-10-28] MEDS: Cholecalciferol (Vitamin D3) 25 MCG TABLET 50 MCG PO (10:23)
[2022-10-28] MEDS: Cyanocobalamin (Vitamin B-12) 1,000 MCG TABLET 1000 MCG PO (10:23)
[2022-10-28] MEDS: Folic Acid 1 MG TABLET PO (10:23)
[2022-10-28] MEDS: Atorvastatin Calcium 40 MG TABLET PO (10:23)
[2022-10-28] MEDS: FLUoxetine HCl 10 MG CAPSULE PO (10:23)
[2022-10-28] MEDS: Bumetanide 1 MG/4 ML VIAL 2 MG IVPUSH ×2 (10:24→18:23)
[2022-10-28] MEDS: Phenytoin Sodium Extended 100 MG CAPSULE 200 MG PO ×2 (10:24→20:38)
[2022-10-28] MEDS: Ferrous Sulfate 324 MG TABLET.DR PO (10:24)
[2022-10-28] MEDS: Zinc Sulfate 220 MG CAPSULE PO (10:26)
--- NOTE | 2022-10-28 11:09 | P.PNIM_ITS ---
Subjective Subjective Date of Service: 10/28/22 Interval History: ongioing back and abd pain Physical Exam Vital Signs: Vital Signs: Last Vital Signs Temp 97.8 F 10/28/22 07:47 Pulse 88 10/28/22 07:47 Resp 20 10/28/22 07:47 BP 145/70 H 10/28/22 07:47 Pulse Ox 97 10/28/22 07:47 O2 Del Method 10/28/22 07:47 BMI result Body Mass Index 20.7 Const: General: comfortable Eyes: EOM: EOMs intact bilaterally Neck: Neck: Yes supple Resp: Auscultation: diminished lung sounds Cardio: Rate: regular rate GI: Palpation (GI): Soft to palpation Neuro: General: moves all extremities Objective Data Active Medications Acetaminophen (Acetaminophen 325 Mg Tablet) 650 mg PO Q6H PRN PRN Reason: Pain, Mild (Pain Scale 1-3) Last Admin: 10/28/22 10:22 Dose: 650 mg Documented By: DAVID Atorvastatin Calcium (Atorvastatin Calcium 40 Mg Tablet) 40 mg PO DAILY [facility] Last Admin: 10/28/22 10:23 Dose: 40 mg Documented By: DAVID Bumetanide (Bumetanide 1 Mg/4 Ml Vial) 2 mg IVPUSH BID@0900,1700 [facility]; Protocol Last Admin: 10/28/22 10:24 Dose: 2 mg Documented By: DAVID Cyanocobalamin (Cyanocobalamin (Vitamin B-12) 1,000 Mcg Tablet) 1,000 mcg PO DAILY [facility] Last Admin: 10/28/22 10:23 Dose: 1,000 mcg Documented By: DAVID Diltiazem HCl (Diltiazem Hcl Cd 240 Mg Cap.Er.Deg) 240 mg PO BEDTIME [facility]; Protocol Last Admin: 10/27/22 20:41 Dose: 240 mg Documented By: JOHNIE Ferrous Sulfate (Ferrous Sulfate 324 Mg Tablet.Dr) 324 mg PO DAILY [facility] Last Admin: 10/28/22 10:24 Dose: 324 mg Documented By: DAVID Fluoxetine HCl (Fluoxetine Hcl 10 Mg Capsule) 10 mg PO DAILY [facility] Last Admin: 10/28/22 10:23 Dose: 10 mg Documented By: DAVID Folic Acid (Folic Acid 1 Mg Tablet) 1 mg PO DAILY [facility] Last Admin: 10/28/22 10:23 Dose: 1 mg Documented By: DAVID Heparin Sodium (Porcine) (Heparin Sodium,Porcine 5,000 Unit/Ml Vial) 2,500 unit 40 unit/kg (2500 unit) IVPUSH PROTOCOL BOLUS PRN; Protocol PRN Reason: 40 unit/kg - Heparin Protocol Heparin Sodium (Porcine) (Heparin Sodium,Porcine 5,000 Unit/Ml Vial) 5,100 unit 80 unit/kg (5100 unit) IVPUSH PROTOCOL BOLUS PRN; Protocol PRN Reason: 80 unit/kg - Heparin Protocol Hydromorphone HCl (Hydromorphone Hcl 0.5 Mg/0.5 Ml Syringe) 0.5 mg IVPUSH Q4H PRN; Protocol PRN Reason: moderate pain Last Admin: 10/27/22 04:28 Dose: 0.5 mg Documented By: AFTAB Heparin Sodium/Sodium Chloride (Heparin Sodium,Porcine/1/2ns) 25,000 unit in 250 mls @ 0 mls/hr IVCONT .Q0M [facility]; Protocol Ondansetron HCl (Ondansetron Hcl 4 Mg/2 Ml Vial) 4 mg IVPUSH Q8H PRN PRN Reason: nausea Last Admin: 10/24/22 13:02 Dose: 4 mg Documented By: CHARLI Oxycodone HCl (Oxycodone Hcl Immed Release 5 Mg Tablet) 5 mg PO BID PRN PRN Reason: moderate pain Last Admin: 10/26/22 17:12 Dose: 5 mg Documented By: RUKHSANA Pharmacy Consult (Consult Rx Perform Med Rec) 1 each MISCELLANE ONCE PRN PRN Reason: Consult order Phenytoin Sodium (Phenytoin Sodium Extended 100 Mg Capsule) 200 mg PO BID [facility] Last Admin: 10/28/22 10:24 Dose: 200 mg Documented By: DAVID Polyethylene Glycol (Polyethylene Glycol 3350 17 Gm Powd.Pack) 17 gm PO DAILY [facility] Last Admin: 10/28/22 10:22 Dose: 17 gm Documented By: DAVID Sodium Chloride (0.9 % Sodium Chloride Flush 3 Ml Syringe) 3 ml IVFLUSH QSHIFT [facility] Last Admin: 10/28/22 10:22 Dose: 3 ml Documented By: DAVID Tamsulosin HCl (Tamsulosin Hcl 0.4 Mg Capsule) 0.8 mg PO BEDTIME [facility] Last Admin: 10/27/22 20:41 Dose: 0.8 mg Documented By: JOHNIE Vitamin D (Cholecalciferol (Vitamin D3) 25 Mcg Tablet) 50 mcg PO DAILY [facility] Last Admin: 10/28/22 10:23 Dose: 50 mcg Documented By: DAVID Warfarin Sodium (Warfarin Sodium 2.5 Mg Tablet) 2.5 mg PO SUTUTHSA@1800 [facility] Last Admin: 10/26/22 17:13 Dose: Not Given Documented By: RUKHSANA Non-Admin Reason: Patient Refused Warfarin Sodium (Warfarin Sodium 1.25 Mg Halftab) 1.25 mg PO MOWEFR@1800 [facility] Zinc Sulfate (Zinc Sulfate 220 Mg Capsule) 220 mg PO DAILY [facility] Last Admin: 10/28/22 10:26 Dose: 220 mg Documented By: DAVID Labs 10/28/22 08:30 10/28/22 05:58 Labs: Laboratory Results - last 24 hr 10/28/22 10/28/22 10/28/22 05:58 05:58 05:58 MCV 106.8 H MCH 35.5 H MCHC 33.2 RDW 13.2 Plt Count 211 MPV 9.8 Absolute Nucleated RBC 0.000 Nucleated RBC % (auto) 0.0 PT 15.2 H INR 1.3 H aPTT Heparin Protocol Anion Gap 14 Estim Creat Clear Calc 34.4 Estimated GFR 42 Fasting Glucose 91 Calcium 9.2 10/28/22 10/28/22 08:30 08:30 MCV 108.7 H MCH 35.8 H MCHC 32.9 RDW 13.5 Plt Count 235 MPV 9.8 Absolute Nucleated RBC 0.000 Nucleated RBC % (auto) 0.0 PT 15.7 H INR 1.4 H aPTT Heparin Protocol 31.7 L Anion Gap Estim Creat Clear Calc Estimated GFR Fasting Glucose Calcium Assessment and Plan (1) Acute urinary retention: Status: Acute Plan 77M PMH chronic diasotlic chf, chronic afib, mechanical MVR, AVR, CAD s/p CABG, bph, htn, pulmonary fibrosis presented with low back pain, found to have anupama ANUPAMA on CKD III partially obstructive - fontana, flomax ? cardiorenal - iv diuresis, monitor closely - continues to improve with diuresis nephro appreciated holding losartan acute on chronic right sided chf cotninue bumex 2mg iv bid, on dc will restart torsemide at previous reduced dose of 80mg bid po back pain pain control, PT - can return to [facility] on discharge hypokalemia replaced monitor mechanical avr, mvr, chronic afib continue cardizem now with subtherapeutic inr will initiate heparin bridge due to high risk for cva, monitor inr, ptt CAD coumadin, statin bph flomax htn cardizem pulmonary fibrosis stable dvt prophylaxis - on coumadin full code reason for continued hospitalization: heparin bridge Time Spent With Patient Time: Total time managing care of this patient today ____ minutes. Quality Stroke Does the patient have a stroke diagnosis?: No VTE Prior VTE?: No VTE Risk Level:: Medical - moderate - high VTE Device Contraindication: Treatment Not Indicated VTE Drug Contraindication: N/A - Med Ordered
[2022-10-28] MEDS: Heparin Sodium,Porcine/1/2NS 25,000 UNIT/250 ML IV.SOLN 8.92 UNIT IVCONT (11:18)
--- NOTE | 2022-10-28 11:26 | PM.PNNEP ---
Subjective Subjective Date of Service: 10/28/22 Interval history: Events ntoed ongioing back and abd pain Physical Exam Vital Signs: Vital Signs: Last Vital Signs Temp 97.8 F 10/28/22 07:47 Pulse 88 10/28/22 07:47 Resp 20 10/28/22 07:47 BP 145/70 H 10/28/22 07:47 Pulse Ox 97 10/28/22 07:47 O2 Del Method 10/28/22 07:47 BMI result Body Mass Index 20.7 Const: General: cooperative, comfortable and no acute distress Orientation/consciousness: patient oriented x3 Eyes: EOM: EOMs intact bilaterally Neck: Neck: Yes supple Resp: Auscultation: diminished lung sounds Cardio: Rate: regular rate GI: Palpation (GI): Soft to palpation Skin: General skin exam: no rashes or lesions noted Neuro: General: patient oriented x3 and moves all extremities Objective Data Labs 10/28/22 08:30 10/28/22 05:58 Labs: Laboratory Results - last 24 hr 10/28/22 10/28/22 10/28/22 05:58 05:58 05:58 WBC 6.8 RBC 2.79 L Hgb 9.9 L Hct 29.8 L MCV 106.8 H MCH 35.5 H MCHC 33.2 RDW 13.2 Plt Count 211 MPV 9.8 Absolute Nucleated RBC 0.000 Nucleated RBC % (auto) 0.0 PT 15.2 H INR 1.3 H aPTT Heparin Protocol Sodium 140 Potassium 4.0 Chloride 102 Carbon Dioxide 28 Anion Gap 14 BUN 31 H Creatinine 1.62 H Estim Creat Clear Calc 34.4 Estimated GFR 42 Fasting Glucose 91 Calcium 9.2 10/28/22 10/28/22 08:30 08:30 WBC 7.2 RBC 2.88 L Hgb 10.3 L Hct 31.3 L MCV 108.7 H MCH 35.8 H MCHC 32.9 RDW 13.5 Plt Count 235 MPV 9.8 Absolute Nucleated RBC 0.000 Nucleated RBC % (auto) 0.0 PT 15.7 H INR 1.4 H aPTT Heparin Protocol 31.7 L Sodium Potassium Chloride Carbon Dioxide Anion Gap BUN Creatinine Estim Creat Clear Calc Estimated GFR Fasting Glucose Calcium Microbiology Microbiology Results: Microbiology 10/23/22 16:09 Blood - Venous Blood Culture - Preliminary No growth after 48 hours. 10/23/22 15:32 Urine clean catch - Urine whelan top Urine Culture - Final Enterococcus faecalis 10/23/22 16:08 Blood - Venous Blood Culture - Final Coag negative Staphylococcus Procedures Date of Service Date of Service: 10/28/22 Assessment & Plan Assessment and plan (1) Acute kidney injury superimposed on chronic kidney disease: Status: Acute Assessment and Plan: ANUPAMA multifactorial- improved; Renal function continues to improve Likely due to tubular injury as well as obstruction Also was on ARB which might have caused altered autoregulation in the kidney Was hypervolemic at presentation which has improved with diuresis ARB on hold. C/W diuresis( could switch to PO) and supportive care for now Trial of voiding Shall F/U( He wants to follow with [facility] as outpatient) Time Spent With Patient Time: Total time managing care of this patient today ____ minutes. Progress Note: Quality Stroke Does the patient have a stroke diagnosis?: No
[2022-10-28 11:38] VITALS: BP 129/65; PULSE 91; RESP 20; TEMP 36.9; O2SAT 98
[2022-10-28 16:00] VITALS: BP 142/77; PULSE 78; RESP 19; TEMP 37.1; O2SAT 98
--- NOTE | 2022-10-28 16:28 | MHC.CM.PN ---
PER MD ROUNDS, PT NOT MEDICALLY CLEARED FOR DC ([facility]IDGE) CM WILL CONTINUE TO FOLLOW. ANTICIPATE RETURN TO [facility] WITH RESUMPTION OF [facility]
[2022-10-28] MEDS: oxyCODONE HCl Immed Release 5 MG TABLET PO (18:18)
[2022-10-28] MEDS: Warfarin Sodium 1.25 MG HALFTAB PO (18:19)
[2022-10-28 19:12] VITALS: BP 129/61; PULSE 78; RESP 18; TEMP 36.6; O2SAT 97
[2022-10-28] MEDS: dilTIAZem HCL CD 240 MG CAP.ER.DEG PO (20:38)
[2022-10-28] MEDS: Tamsulosin HCL 0.4 MG CAPSULE 0.8 MG PO (20:38)
[2022-10-28] MEDS: HYDROmorphone HCl 0.5 MG/0.5 ML SYRINGE IVPUSH (23:07)
[2022-10-28 23:34] LABS: PTT Heparin Drip 50.8 SEC (53-77.9)
[2022-10-29] VITALS: BP 140/67; PULSE 80; RESP 15; TEMP 36.9; O2SAT 97
[2022-10-29] MEDS: Heparin Sodium,Porcine 5,000 UNIT/ML VIAL 2500 UNIT IVPUSH ×2 (01:07→18:12)
[2022-10-29 07:03] LABS: Hematocrit 32.1 % (42.0-52.0); Hemoglobin 10.7 g/dl (14.0-18.0); Mean Corpuscular HGB Conc 33.3 g/dl (31.0-36.0); Mean Corpuscular Hemoglobin 36.4 pg (27.0-33.0); Mean Corpuscular Volume 109.2 fL (80.0-98.0); Mean Platelet Volume 9.9 fL (9.4-12.4); Platelet Count 228 X10*3/uL (160-400); Red Blood Count 2.94 X10*6/uL (4.60-5.80); Red Cell Distribution Width 13.3 % (11.0-16.0); White Blood Count 6.6 X10*3/uL (4.8-10.8)
[2022-10-29 07:15] LABS: INTERNATIONAL NORM RATIO 1.7 (0.9-1.1); Prothrombin Time 19.6 SEC (10.0-13.1)
[2022-10-29 07:17] VITALS: BP 118/58; PULSE 79; RESP 20; TEMP 36.8; O2SAT 100
[2022-10-29 07:32] LABS: Anion Gap 16 (12-20); Blood Urea Nitrogen 29 mg/dL (9-16); Calcium 9.1 mg/dL (8.4-10.2); Carbon Dioxide 26 mmol/L (22-29); Chloride 101 mmol/L (96-108); Creatinine Clr Calc Pharmacy 38.1; Estimated Glomerular Filt Rate 47; Glucose Fasting 94 mg/dL (60-99); Sodium 139 mmol/L (135-145)
[2022-10-29 07:41] LABS: PTT Heparin Drip 125.3 SEC (53-77.9)
[2022-10-29] MEDS: Ferrous Sulfate 324 MG TABLET.DR PO (09:11)
[2022-10-29] MEDS: oxyCODONE HCl Immed Release 5 MG TABLET PO (09:11)
[2022-10-29] MEDS: Folic Acid 1 MG TABLET PO (09:11)
[2022-10-29] MEDS: 0.9 % Sodium Chloride Flush 3 ML SYRINGE IVFLUSH ×3 (09:11→20:29)
[2022-10-29] MEDS: Cyanocobalamin (Vitamin B-12) 1,000 MCG TABLET 1000 MCG PO (09:11)
[2022-10-29] MEDS: Atorvastatin Calcium 40 MG TABLET PO (09:11)
[2022-10-29] MEDS: FLUoxetine HCl 10 MG CAPSULE PO (09:11)
[2022-10-29] MEDS: Zinc Sulfate 220 MG CAPSULE PO (09:12)
[2022-10-29] MEDS: Bumetanide 1 MG/4 ML VIAL 2 MG IVPUSH ×2 (09:12→18:25)
[2022-10-29] MEDS: polyethylene glycoL 3350 17 GM POWD.PACK PO (09:12)
[2022-10-29] MEDS: Cholecalciferol (Vitamin D3) 25 MCG TABLET 50 MCG PO (09:12)
[2022-10-29] MEDS: Acetaminophen 325 MG TABLET 650 MG PO (09:12)
[2022-10-29] MEDS: Phenytoin Sodium Extended 100 MG CAPSULE 200 MG PO ×2 (09:12→20:32)
[2022-10-29 10:45] LABS: PTT Heparin Drip 47.7 SEC (53-77.9)
[2022-10-29 10:59] VITALS: BP 115/65; PULSE 78; RESP 20; TEMP 36.7; O2SAT 98
[2022-10-29] MEDS: Heparin Sodium,Porcine/1/2NS 25,000 UNIT/250 ML IV.SOLN 7.64 UNIT IVCONT (11:01)
--- NOTE | 2022-10-29 11:34 | P.PNNP_ITS ---
Subjective Subjective Date of Service: 10/30/22 Interval history: Events ntoed ongoing back and abd pain Physical Exam Vital Signs: Vital Signs: Last Vital Signs Temp 98.0 F 10/29/22 10:59 Pulse 78 10/29/22 10:59 Resp 20 10/29/22 10:59 BP 115/65 10/29/22 10:59 Pulse Ox 98 10/29/22 10:59 O2 Del Method 10/29/22 10:59 BMI result Body Mass Index 20.7 Const: General: cooperative, comfortable and no acute distress O rientation/consciousness: patient oriented x3 Eyes: EOM: EOMs intact bilaterally Neck: Neck: Yes supple Resp: Auscultation: diminished lung sounds Cardio: Rate: regular rate GI: Palpation (GI): Soft to palpation Skin: General skin exam: no rashes or lesions noted Neuro: General: patient oriented x3 and moves all extremities Objective Data Labs 10/29/22 06:46 10/29/22 06:46 Labs: Laboratory Results - last 24 hr 10/28/22 10/28/22 10/29/22 17:26 23:20 06:46 WBC 6.6 RBC 2.94 L Hgb 10.7 L Hct 32.1 L MCV 109.2 H MCH 36.4 H MCHC 33.3 RDW 13.3 Plt Count 228 MPV 9.9 Absolute Nucleated RBC 0.000 Nucleated RBC % (auto) 0.0 PT INR aPTT Heparin Protocol 55.0 D 50.8 L Sodium Potassium Chloride Carbon Dioxide Anion Gap BUN Creatinine Estim Creat Clear Calc Estimated GFR Fasting Glucose Calcium 10/29/22 10/29/22 10/29/22 06:46 06:46 06:46 WBC RBC Hgb Hct MCV MCH MCHC RDW Plt Count MPV Absolute Nucleated RBC Nucleated RBC % (auto) PT 19.6 H INR 1.7 H aPTT Heparin Protocol 125.3 H* D Sodium 139 Potassium 4.0 Chloride 101 Carbon Dioxide 26 Anion Gap 16 BUN 29 H Creatinine 1.46 H Estim Creat Clear Calc 38.1 Estimated GFR 47 Fasting Glucose 94 Calcium 9.1 10/29/22 10:17 WBC RBC Hgb Hct MCV MCH MCHC RDW Plt Count MPV Absolute Nucleated RBC Nucleated RBC % (auto) PT INR aPTT Heparin Protocol 47.7 L D Sodium Potassium Chloride Carbon Dioxide Anion Gap BUN Creatinine Estim Creat Clear Calc Estimated GFR Fasting Glucose Calcium Microbiology Microbiology Results: Microbiology 10/23/22 16:09 Blood - Venous Blood Culture - Final No growth after 5 days. 10/23/22 15:32 Urine clean catch - Urine whelan top Urine Culture - Final Enterococcus faecalis 10/23/22 16:08 Blood - Venous Blood Culture - Final Coag negative Staphylococcus Procedures Date of Service Date of Service: 10/29/22 Assessment & Plan Assessment and plan (1) Acute kidney injury superimposed on chronic kidney disease: Status: Acute Assessment and Plan: ANUPAMA multifactorial- improved; Renal function continues to improve Likely due to tubular injury as well as obstruction Also was on ARB which might have caused altered autoregulation in the kidney Was hypervolemic at presentation which has improved with diuresis ARB on hold. Shall F/U( He wants to follow with [facility] as outpatient) Time Spent With Patient Time: Total time managing care of this patient today ____ minutes. Progress Note: Quality Stroke Does the patient have a stroke diagnosis?: No
--- NOTE | 2022-10-29 11:53 | P.PNIM_ITS ---
Subjective Subjective Date of Service: 10/29/22 Interval History: ongioing back and abd pain Physical Exam Vital Signs: Vital Signs: Last Vital Signs Temp 98.0 F 10/29/22 10:59 Pulse 78 10/29/22 10:59 Resp 20 10/29/22 10:59 BP 115/65 10/29/22 10:59 Pulse Ox 98 10/29/22 10:59 O2 Del Method 10/29/22 10:59 BMI result Body Mass Index 20.7 agitated, in pain cta bileteral no edema abd much softer than previous Objective Data Active Medications Acetaminophen (Acetaminophen 325 Mg Tablet) 650 mg PO Q6H PRN PRN Reason: Pain, Mild (Pain Scale 1-3) Last Admin: 10/29/22 09:12 Dose: 650 mg Documented By: DAVID Atorvastatin Calcium (Atorvastatin Calcium 40 Mg Tablet) 40 mg PO DAILY [facility] Last Admin: 10/29/22 09:11 Dose: 40 mg Documented By: DAVID Bumetanide (Bumetanide 1 Mg/4 Ml Vial) 2 mg IVPUSH BID@0900,1700 [facility]; Protocol Last Admin: 10/29/22 09:12 Dose: 2 mg Documented By: DAVID Cyanocobalamin (Cyanocobalamin (Vitamin B-12) 1,000 Mcg Tablet) 1,000 mcg PO DAILY [facility] Last Admin: 10/29/22 09:11 Dose: 1,000 mcg Documented By: DAVID Diltiazem HCl (Diltiazem Hcl Cd 240 Mg Cap.Er.Deg) 240 mg PO BEDTIME [facility]; Ron col Last Admin: 10/28/22 20:38 Dose: 240 mg Documented By: ERROL Ferrous Sulfate (Ferrous Sulfate 324 Mg Tablet.Dr) 324 mg PO DAILY [facility] Last Admin: 10/29/22 09:11 Dose: 324 mg Documented By: DAVID Fluoxetine HCl (Fluoxetine Hcl 10 Mg Capsule) 10 mg PO DAILY [facility] Last Admin: 10/29/22 09:11 Dose: 10 mg Documented By: DAVID Folic Acid (Folic Acid 1 Mg Tablet) 1 mg PO DAILY [facility] Last Admin: 10/29/22 09:11 Dose: 1 mg Documented By: DAVID Heparin Sodium (Porcine) (Heparin Sodium,Porcine 5,000 Unit/Ml Vial) 2,500 unit 40 unit/kg (2500 unit) IVPUSH PROTOCOL BOLUS PRN; Protocol PRN Reason: 40 unit/kg - Heparin Protocol Last Admin: 10/29/22 01:07 Dose: 2,500 unit Documented By: ERROL Heparin Sodium (Porcine) (Heparin Sodium,Porcine 5,000 Unit/Ml Vial) 5,100 unit 80 unit/kg (5100 unit) IVPUSH PROTOCOL BOLUS PRN; Protocol PRN Reason: 80 unit/kg - Heparin Protocol Hydromorphone HCl (Hydromorphone Hcl 0.5 Mg/0.5 Ml Syringe) 1 mg IVPUSH Q4H PRN; Protocol PRN Reason: moderate pain Heparin Sodium/Sodium Chloride (Heparin Sodium,Porcine/1/2ns) 25,000 unit in 250 mls @ 0 mls/hr IVCONT .Q0M [facility]; Protocol Last Admin: 10/29/22 11:01 Dose: 12 units/kg/hr, 7.64 mls/hr Documented By: DAVID Co-signed By: KYLE Ondansetron HCl (Ondansetron Hcl 4 Mg/2 Ml Vial) 4 mg IVPUSH Q8H PRN PRN Reason: nausea Last Admin: 10/24/22 13:02 Dose: 4 mg Documented By: CHARLI Oxycodone HCl (Oxycodone Hcl Immed Release 5 Mg Tablet) 5 mg PO BID PRN PRN Reason: moderate pain Last Admin: 10/29/22 09:11 Dose: 5 mg Documented By: DAVID Pharmacy Consult (Consult Rx Perform Med Rec) 1 each MISCELLANE ONCE PRN PRN Reason: Consult order Phenytoin Sodium (Phenytoin Sodium Extended 100 Mg Capsule) 200 mg PO BID [facility] Last Admin: 10/29/22 09:12 Dose: 200 mg Documented By: DAVID Polyethylene Glycol (Polyethylene Glycol 3350 17 Gm Powd.Pack) 17 gm PO DAILY [facility] Last Admin: 10/29/22 09:12 Dose: 17 gm Documented By: DAVID Sodium Chloride (0.9 % Sodium Chloride Flush 3 Ml Syringe) 3 ml IVFLUSH QSHIFT [facility] Last Admin: 10/29/22 09:11 Dose: 3 ml Documented By: DAVID Tamsulosin HCl (Tamsulosin Hcl 0.4 Mg Capsule) 0.8 mg PO BEDTIME [facility] Last Admin: 10/28/22 20:38 Dose: 0.8 mg Documented By: ERROL Vitamin D (Cholecalciferol (Vitamin D3) 25 Mcg Tablet) 50 mcg PO DAILY [facility] Last Admin: 10/29/22 09:12 Dose: 50 mcg Documented By: DAVID Warfarin Sodium (Warfarin Sodium 2.5 Mg Tablet) 2.5 mg PO SUTUTHSA@1800 [facility] Last Admin: 10/26/22 17:13 Dose: Not Given Documented By: RUKHSANA Non-Admin Reason: Patient Refused Warfarin Sodium (Warfarin Sodium 1.25 Mg Halftab) 1.25 mg PO MOWEFR@1800 [facility] Last Admin: 10/28/22 18:19 Dose: 1.25 mg Documented By: DAVID Zinc Sulfate (Zinc Sulfate 220 Mg Capsule) 220 mg PO DAILY [facility] Last Admin: 10/29/22 09:12 Dose: 220 mg Documented By: DAVID Labs 10/29/22 06:46 10/29/22 06:46 Labs: Laboratory Results - last 24 hr 10/28/22 10/28/22 10/29/22 17:26 23:20 06:46 MCV 109.2 H MCH 36.4 H MCHC 33.3 RDW 13.3 Plt Count 228 MPV 9.9 Absolute Nucleated RBC 0.000 Nucleated RBC % (auto) 0.0 PT INR aPTT Heparin Protocol 55.0 D 50.8 L Anion Gap Estim Creat Clear Calc Estimated GFR Fasting Glucose Calcium 10/29/22 10/29/22 10/29/22 06:46 06:46 06:46 MCV MCH MCHC RDW Plt Count MPV Absolute Nucleated RBC Nucleated RBC % (auto) PT 19.6 H INR 1.7 H aPTT Heparin Protocol 125.3 H* D Anion Gap 16 Estim Creat Clear Calc 38.1 Estimated GFR 47 Fasting Glucose 94 Calcium 9.1 10/29/22 10:17 MCV MCH MCHC RDW Plt Count MPV Absolute Nucleated RBC Nucleated RBC % (auto) PT INR aPTT Heparin Protocol 47.7 L D Anion Gap Estim Creat Clear Calc Estimated GFR Fasting Glucose Calcium Microbiology Microbiology Results: Microbiology 10/23/22 16:09 Blood Culture - Final Blood - Venous No growth after 5 days. Assessment and Plan (1) Acute urinary retention: Status: Acute Plan 77M PMH chronic diasotlic chf, chronic afib, mechanical MVR, AVR, CAD s/p CABG, bph, htn, pulmonary fibrosis presented with low back pain, found to have anupama ANUPAMA on CKD III partially obstructive - fontana, flomax - will do voiding trial c/w cardiorenal - iv diuresis, monitor closely - continues to improve with diuresis nephro appreciated holding losartan acute on chronic right sided chf cotninue bumex 2mg iv bid, on dc will restart torsemide at previous reduced dose of 80mg bid po back pain Mild degenerative changes are present in the spine most marked at L4-L5 also with T11 sclerosis and partial collapse - though clinically this appears to be higher than patient's pain location pain control - still with significant pain, increasing dilaudid PT - can return to [facility] on discharge hypokalemia replaced monitor mechanical avr, mvr, chronic afib continue cardizem now with subtherapeutic inr -1.7 continue heparin bridge due to high risk for cva, monitor inr, ptt CAD coumadin, statin bph flomax htn cardizem pulmonary fibrosis stable dvt prophylaxis - on coumadin full code reason for continued hospitalization: heparin bridge, pain uncontrolled Time Spent With Patient Time: Total time managing care of this patient today ____ minutes. Quality Stroke Does the patient have a stroke diagnosis?: No VTE Prior VTE?: No VTE Risk Level:: Medical - moderate - high VTE Device Contraindication: Treatment Not Indicated VTE Drug Contraindication: N/A - Med Ordered
[2022-10-29 16:00] VITALS: BP 115/56; PULSE 70; RESP 18; TEMP 37; O2SAT 98
[2022-10-29 17:30] LABS: PTT Heparin Drip 50.8 SEC (53-77.9)
[2022-10-29] MEDS: Warfarin Sodium 2.5 MG TABLET PO (18:26)
[2022-10-29 19:32] VITALS: BP 100/53; PULSE 75; RESP 18; TEMP 37.4; O2SAT 96
[2022-10-29] MEDS: HYDROmorphone HCl 0.5 MG/0.5 ML SYRINGE 1 MG IVPUSH (20:28)
[2022-10-29] MEDS: Tamsulosin HCL 0.4 MG CAPSULE 0.8 MG PO (20:32)
[2022-10-29] MEDS: dilTIAZem HCL CD 240 MG CAP.ER.DEG PO (20:32)
[2022-10-29 23:53] VITALS: BP 140/74; PULSE 76; RESP 20; TEMP 36.4; O2SAT 98
[2022-10-30 01:05] LABS: PTT Heparin Drip 49.8 SEC (53-77.9)
[2022-10-30 03:11] VITALS: BP 102/56; PULSE 83; RESP 20; TEMP 36.7; O2SAT 98
[2022-10-30] MEDS: Heparin Sodium,Porcine 5,000 UNIT/ML VIAL 2500 UNIT IVPUSH ×2 (04:06→20:02)
[2022-10-30] MEDS: Acetaminophen 325 MG TABLET 650 MG PO ×2 (04:10→12:52)
[2022-10-30] MEDS: oxyCODONE HCl Immed Release 5 MG TABLET PO ×2 (04:10→12:52)
[2022-10-30 07:00] LABS: Hematocrit 27.1 % (42.0-52.0); Mean Corpuscular HGB Conc 33.2 g/dl (31.0-36.0); Mean Corpuscular Hemoglobin 36.1 pg (27.0-33.0); Mean Corpuscular Volume 108.8 fL (80.0-98.0); Mean Platelet Volume 10.3 fL (9.4-12.4); Platelet Count 209 X10*3/uL (160-400); Red Blood Count 2.49 X10*6/uL (4.60-5.80); Red Cell Distribution Width 13.1 % (11.0-16.0); White Blood Count 6.4 X10*3/uL (4.8-10.8)
[2022-10-30 07:40] VITALS: BP 122/67; PULSE 78; RESP 16; TEMP 37.3; O2SAT 95
[2022-10-30 08:29] LABS: Anion Gap 16 (12-20); Blood Urea Nitrogen 33 mg/dL (9-16); Calcium 8.7 mg/dL (8.4-10.2); Carbon Dioxide 26 mmol/L (22-29); Chloride 100 mmol/L (96-108); Creatinine Clr Calc Pharmacy 34.6; Estimated Glomerular Filt Rate 42; Glucose Fasting 82 mg/dL (60-99); Potassium 4.1 mmol/L (3.3-5.1); Sodium 138 mmol/L (135-145)
[2022-10-30] MEDS: Ferrous Sulfate 324 MG TABLET.DR PO (09:35)
[2022-10-30] MEDS: Phenytoin Sodium Extended 100 MG CAPSULE 200 MG PO ×2 (09:35→20:01)
[2022-10-30] MEDS: FLUoxetine HCl 10 MG CAPSULE PO (09:35)
[2022-10-30] MEDS: Zinc Sulfate 220 MG CAPSULE PO (09:35)
[2022-10-30] MEDS: Atorvastatin Calcium 40 MG TABLET PO (09:35)
[2022-10-30] MEDS: ondansetron HCL 4 MG/2 ML VIAL IVPUSH ×2 (09:36→17:47)
[2022-10-30] MEDS: Bumetanide 1 MG/4 ML VIAL 2 MG IVPUSH ×2 (09:36→17:48)
[2022-10-30] MEDS: Cyanocobalamin (Vitamin B-12) 1,000 MCG TABLET 1000 MCG PO (09:36)
[2022-10-30] MEDS: 0.9 % Sodium Chloride Flush 3 ML SYRINGE IVFLUSH ×3 (09:36→20:05)
[2022-10-30] MEDS: Folic Acid 1 MG TABLET PO (09:36)
[2022-10-30] MEDS: polyethylene glycoL 3350 17 GM POWD.PACK PO (09:36)
[2022-10-30] MEDS: Cholecalciferol (Vitamin D3) 25 MCG TABLET 50 MCG PO (09:36)
[2022-10-30] MEDS: HYDROmorphone HCl 0.5 MG/0.5 ML SYRINGE 1 MG IVPUSH ×3 (09:49→20:21)
--- NOTE | 2022-10-30 10:55 | P.PNNP_ITS ---
Subjective Subjective Date of Service: 10/31/22 Interval history: ongioing back and abd pain Physical Exam Vital Signs: Vital Signs: Last Vital Signs Temp 99.2 F 10/30/22 07:40 Pulse 78 10/30/22 07:40 Resp 16 10/30/22 07:40 BP 122/67 10/30/22 07:40 Pulse Ox 95 10/30/22 07:40 O2 Del Method 10/30/22 07:40 BMI result Body Mass Index 20.7 Const: General: cooperative, comfortable and no acute distress Orientation /consciousness: patient oriented x3 Eyes: EOM: EOMs intact bilaterally Neck: Neck: Yes supple Resp: Auscultation: diminished lung sounds Cardio: Rate: regular rate GI: Palpation (GI): Soft to palpation Skin: General skin exam: no rashes or lesions noted Neuro: General: patient oriented x3 and moves all extremities Objective Data Labs 10/30/22 06:14 10/30/22 06:14 Labs: Laboratory Results - last 24 hr 10/29/22 10/30/22 10/30/22 17:12 00:23 06:14 WBC 6.4 RBC 2.49 L Hgb 9.0 L Hct 27.1 L MCV 108.8 H MCH 36.1 H MCHC 33.2 RDW 13.1 Plt Count 209 MPV 10.3 Absolute Nucleated RBC 0.000 Nucleated RBC % (auto) 0.0 PT INR aPTT Heparin Protocol 50.8 L 49.8 L Sodium Potassium Chloride Carbon Dioxide Anion Gap BUN Creatinine Estim Creat Clear Calc Estimated GFR Fasting Glucose Calcium 10/30/22 10/30/22 10/30/22 06:14 06:14 09:59 WBC RBC Hgb Hct MCV MCH MCHC RDW Plt Count MPV Absolute Nucleated RBC Nucleated RBC % (auto) PT 23.0 H INR 2.0 H aPTT Heparin Protocol 134.3 H* D Sodium 138 Potassium 4.1 Chloride 100 Carbon Dioxide 26 Anion Gap 16 BUN 33 H Creatinine 1.61 H Estim Creat Clear Calc 34.6 Estimated GFR 42 Fasting Glucose 82 Calcium 8.7 Microbiology Microbiology Results: Microbiology 10/23/22 16:09 Blood - Venous Blood Culture - Final No growth after 5 days. 10/23/22 15:32 Urine clean catch - Urine whelan top Urine Culture - Final Enterococcus faecalis 10/23/22 16:08 Blood - Venous Blood Culture - Final Coag negative Staphylococcus Procedures Date of Service Date of Service: 10/30/22 Assessment & Plan Assessment and plan (1) Acute kidney injury superimposed on chronic kidney disease: Status: Acute Assessment and Plan: ANUPAMA multifactorial- improved; Renal function noted Likely due to tubular injury as well as obstruction Also was on ARB which might have caused altered autoregulation in the kidney Was hypervolemic at presentation which has improved with diuresis ARB on hold. Trial of voiding Shall F/U( He wants to follow with [facility] as outpatient) Time Spent With Patient Time: Total time managing care of this patient today ____ minutes. Progress Note: Quality Stroke Does the patient have a stroke diagnosis?: No
--- NOTE | 2022-10-30 10:56 | HO.PM.IMPN ---
Subjective Subjective Date of Service: 10/30/22 Interval History: Feels better overall but reporting back pain INR at 2, on heparin drip No reported overnight events Review of Systems Review of Systems: Yes all other systems are reviewed and are negative Physical Exam Vital Signs: Vital Signs: Last Vital Signs Temp 99.2 F 10/30/22 07:40 Pulse 78 10/30/22 07:40 Resp 16 10/30/22 07:40 BP 122/67 10/30/22 07:40 Pulse Ox 95 10/30/22 07:40 O2 Del Method 10/30/22 07:40 BMI result Body Mass Index 20.7 Const: Other: Constitutional : Awake, interactive, in pain on occasions Neck : Normal inspection, Supple Cardiovascular : RRR, no JVP, trace lower extremity edema Respiratory : good bilateral air entry, no crackles, wheezes or rhonchi Gastrointestinal: soft, lax, Normal bowel sounds, Non tender Skin : Warm, Dry Neurological : Alert & oriented x3, No focal deficit Objective Data Active Medications Acetaminophen (Acetaminophen 325 Mg Tablet) 650 mg PO Q6H PRN PRN Reason: Pain, Mild (Pain Scale 1-3) Last Admin: 10/30/22 04:10 Dose: 650 mg Documented By: ERROL Atorvastatin Calcium (Atorvastatin Calcium 40 Mg Tablet) 40 mg PO DAILY [facility] Last Admin: 10/30/22 09:35 Dose: 40 mg Documented By: AMY Bumetanide (Bumetanide 1 Mg/4 Ml Vial) 2 mg IVPUSH BID@0900,1700 [facility]; Protocol Last Admin: 10/30/22 09:36 Dose: 2 mg Documented By: AMY Cyanocobalamin (Cyanocobalamin (Vitamin B-12) 1,000 Mcg Tablet) 1,000 mcg PO DAILY [facility] Last Admin: 10/30/22 09:36 Dose: 1,000 mcg Documented By: AMY Diltiazem HCl (Diltiazem Hcl Cd 240 Mg Cap.Er.Deg) 240 mg PO BEDTIME [facility]; Protocol Last Admin: 10/29/22 20:32 Dose: 240 mg Documented By: ERROL Ferrous Sulfate (Ferrous Sulfate 324 Mg Tablet.Dr) 324 mg PO DAILY [facility] Last Admin: 10/30/22 09:35 Dose: 324 mg Documented By: AMY Fluoxetine HCl (Fluoxetine Hcl 10 Mg Capsule) 10 mg PO DAILY [facility] Last Admin: 10/30/22 09:35 Dose: 10 mg Documented By: AMY Folic Acid (Folic Acid 1 Mg Tablet) 1 mg PO DAILY [facility] Last Admin: 10/30/22 09:36 Dose: 1 mg Documented By: AMY Heparin Sodium (Porcine) (Heparin Sodium,Porcine 5,000 Unit/Ml Vial) 2,500 unit 40 unit/kg (2500 unit) IVPUSH PROTOCOL BOLUS PRN; Protocol PRN Reason: 40 unit/kg - Heparin Protocol Last Admin: 10/30/22 04:06 Dose: 2,500 unit Documented By: ERROL Heparin Sodium (Porcine) (Heparin Sodium,Porcine 5,000 Unit/Ml Vial) 5,100 unit 80 unit/kg (5100 unit) IVPUSH PROTOCOL BOLUS PRN; Protocol PRN Reason: 80 unit/kg - Heparin Protocol Hydromorphone HCl (Hydromorphone Hcl 0.5 Mg/0.5 Ml Syringe) 1 mg IVPUSH Q4H PRN; Protocol PRN Reason: moderate pain Last Admin: 10/30/22 09:49 Dose: 1 mg Documented By: AMY Heparin Sodium/Sodium Chloride (Heparin Sodium,Porcine/1/2ns) 25,000 unit in 250 mls @ 0 mls/hr IVCONT .Q0M [facility]; Protocol Last Titration: 10/30/22 10:42 Dose: 0 units/kg/hr, 0 mls/hr Documented By: CONG Co-signed By: DIONY Ondansetron HCl (Ondansetron Hcl 4 Mg/2 Ml Vial) 4 mg IVPUSH Q8H PRN PRN Reason: nausea Last Admin: 10/30/22 09:36 Dose: 4 mg Documented By: AMY Oxycodone HCl (Oxycodone Hcl Immed Release 5 Mg Tablet) 5 mg PO BID PRN PRN Reason: moderate pain Last Admin: 10/30/22 04:10 Dose: 5 mg Documented By: ERROL Pharmacy Consult (Consult Rx Perform Med Rec) 1 each MISCELLANE ONCE PRN PRN Reason: Consult order Phenytoin Sodium (Phenytoin Sodium Extended 100 Mg Capsule) 200 mg PO BID [facility] Last Admin: 10/30/22 09:35 Dose: 200 mg Documented By: AMY Polyethylene Glycol (Polyethylene Glycol 3350 17 Gm Powd.Pack) 17 gm PO DAILY [facility] Last Admin: 10/30/22 09:36 Dose: 17 gm Documented By: AMY Sodium Chloride (0.9 % Sodium Chloride Flush 3 Ml Syringe) 3 ml IVFLUSH QSHIFT [facility] Last Admin: 10/30/22 09:36 Dose: 3 ml Documented By: AMY Tamsulosin HCl (Tamsulosin Hcl 0.4 Mg Capsule) 0.8 mg PO BEDTIME [facility] Last Admin: 10/29/22 20:32 Dose: 0.8 mg Documented By: ERROL Vitamin D (Cholecalciferol (Vitamin D3) 25 Mcg Tablet) 50 mcg PO DAILY [facility] Last Admin: 10/30/22 09:36 Dose: 50 mcg Documented By: AMY Warfarin Sodium (Warfarin Sodium 2.5 Mg Tablet) 2.5 mg PO SUTUTHSA@1800 [facility] Last Admin: 10/29/22 18:26 Dose: 2.5 mg Documented By: DAVID Warfarin Sodium (Warfarin Sodium 1.25 Mg Halftab) 1.25 mg PO MOWEFR@1800 [facility] Last Admin: 10/28/22 18:19 Dose: 1.25 mg Documented By: DAVID Zinc Sulfate (Zinc Sulfate 220 Mg Capsule) 220 mg PO DAILY [facility] Last Admin: 10/30/22 09:35 Dose: 220 mg Documented By: AMY Labs 10/30/22 06:14 10/30/22 06:14 Labs: Laboratory Results - last 24 hr 10/29/22 10/30/22 10/30/22 17:12 00:23 06:14 MCV 108.8 H MCH 36.1 H MCHC 33.2 RDW 13.1 Plt Count 209 MPV 10.3 Absolute Nucleated RBC 0.000 Nucleated RBC % (auto) 0.0 PT INR aPTT Heparin Protocol 50.8 L 49.8 L Anion Gap Estim Creat Clear Calc Estimated GFR Fasting Glucose Calcium 10/30/22 10/30/22 10/30/22 06:14 06:14 09:59 MCV MCH MCHC RDW Plt Count MPV Absolute Nucleated RBC Nucleated RBC % (auto) PT 23.0 H INR 2.0 H aPTT Heparin Protocol 134.3 H* D Anion Gap 16 Estim Creat Clear Calc 34.6 Estimated GFR 42 Fasting Glucose 82 Calcium 8.7 Assessment and Plan (1) Acute urinary retention: Status: Acute (2) Acute UTI: Status: Acute (3) Subtherapeutic international normalized ratio (INR): Status: Acute (4) Acute kidney injury superimposed on chronic kidney disease: Status: Acute Plan 77M PMH chronic diasotlic chf, chronic afib, mechanical MVR, AVR, CAD s/p CABG, bph, htn, pulmonary fibrosis presented with low back pain, found to have anupama ANUPAMA on CKD III partially obstructive - fontana, flomax - will do voiding trial and dc fontana c/w cardiorenal - iv diuresis, monitor closely - continues to improve with diuresis nephro appreciated holding losartan acute on chronic right sided chf cotninue bumex 2mg iv bid, on dc will restart torsemide at previous reduced dose of 80mg bid po back pain Mild degenerative changes are present in the spine most marked at L4-L5 also with T11 sclerosis and partial collapse - though clinically this appears to be higher than patient's pain location pain control - still with significant pain, increasing dilaudid PT - can return to [facility] on discharge hypokalemia replaced monitor mechanical avr, mvr, chronic afib continue cardizem now with subtherapeutic inr -2 continue heparin bridge due to high risk for cva, monitor inr, ptt CAD coumadin, statin bph flomax htn cardizem pulmonary fibrosis stable dvt prophylaxis - on coumadin full code reason for continued hospitalization: heparin bridge, pain uncontrolled Time Spent With Patient Time: Total time managing care of this patient today ____ minutes. Quality Stroke Does the patient have a stroke diagnosis?: No VTE Prior VTE?: No VTE Risk Level:: Medical - moderate - high VTE Device Contraindication: Treatment Not Indicated VTE Drug Contraindication: N/A - Med Ordered
--- NOTE | 2022-10-30 11:16 | MHC.CM.PN ---
[facility] REVIEWED, PER HOSPITALIST PT WILL REMAIN INPT ONE MORE DAY AND WILL RETURN HOME TO [facility] AND [facility] OF [facility], PT NEED ASSISTANCE W/TRANSPORT
[2022-10-30 12:00] VITALS: BP 120/58; PULSE 75; RESP 16; TEMP 36.6; O2SAT 96
[2022-10-30 12:20] LABS: PTT Heparin Drip 47.2 SEC (53-77.9)
[2022-10-30 12:35] LABS: PTT Heparin Drip 134.3 SEC (53-77.9)
[2022-10-30] MEDS: Heparin Sodium,Porcine/1/2NS 25,000 UNIT/250 ML IV.SOLN 7.64 UNIT IVCONT (12:43)
[2022-10-30] MEDS: Lidocaine 4 % Patch ADH..PATCH 1 PATCH TRANSDERMA (15:05)
[2022-10-30 15:17] VITALS: BP 109/58; PULSE 62; RESP 21; TEMP 37.1; O2SAT 98
[2022-10-30] MEDS: Warfarin Sodium 1.25 MG HALFTAB PO (17:48)
[2022-10-30 19:12] VITALS: BP 127/71; PULSE 71; RESP 19; TEMP 36.6; O2SAT 96
[2022-10-30 19:22] LABS: INTERNATIONAL NORM RATIO 1.9 (0.9-1.1); Prothrombin Time 22.8 SEC (10.0-13.1)
[2022-10-30 19:24] LABS: PTT Heparin Drip 52.6 SEC (53-77.9)
[2022-10-30] MEDS: Tamsulosin HCL 0.4 MG CAPSULE 0.8 MG PO (20:01)
[2022-10-30] MEDS: dilTIAZem HCL CD 240 MG CAP.ER.DEG PO (20:01)
[2022-10-30 23:48] VITALS: BP 139/78; PULSE 77; RESP 20; TEMP 36.8; O2SAT 96
[2022-10-31 02:46] LABS: Hematocrit 28.4 % (42.0-52.0); Hemoglobin 9.4 g/dl (14.0-18.0); Mean Corpuscular HGB Conc 33.1 g/dl (31.0-36.0); Mean Corpuscular Hemoglobin 35.7 pg (27.0-33.0); Mean Platelet Volume 10.1 fL (9.4-12.4); Platelet Count 182 X10*3/uL (160-400); Red Blood Count 2.63 X10*6/uL (4.60-5.80); Red Cell Distribution Width 13.6 % (11.0-16.0); White Blood Count 6.8 X10*3/uL (4.8-10.8)
[2022-10-31 02:54] LABS: PTT Heparin Drip 75.7 SEC (53-77.9)
[2022-10-31 03:20] VITALS: BP 119/67; PULSE 96; RESP 20; TEMP 36.5; O2SAT 93
[2022-10-31 03:31] LABS: Anion Gap 15 (12-20); Blood Urea Nitrogen 42 mg/dL (9-16); Carbon Dioxide 28 mmol/L (22-29); Chloride 98 mmol/L (96-108); Creatinine Clr Calc Pharmacy 26.1; Estimated Glomerular Filt Rate 30; Glucose Random 109 mg/dL (60-115); Potassium 4.9 mmol/L (3.3-5.1); Sodium 136 mmol/L (135-145)
[2022-10-31 07:09] LABS: Prothrombin Time 23.2 SEC (10.0-13.1)
[2022-10-31 07:35] VITALS: BP 134/67; PULSE 69; RESP 20; TEMP 37; O2SAT 97
[2022-10-31 09:43] LABS: PTT Heparin Drip 49.8 SEC (53-77.9)
[2022-10-31] MEDS: Heparin Sodium,Porcine 5,000 UNIT/ML VIAL 2500 UNIT IVPUSH (10:15)
[2022-10-31] MEDS: polyethylene glycoL 3350 17 GM POWD.PACK PO (11:04)
[2022-10-31] MEDS: Lidocaine 4 % Patch ADH..PATCH 1 PATCH TRANSDERMA (11:05)
[2022-10-31] MEDS: oxyCODONE HCl Immed Release 5 MG TABLET PO ×2 (11:08→15:38)
[2022-10-31] MEDS: Folic Acid 1 MG TABLET PO (11:08)
[2022-10-31] MEDS: Phenytoin Sodium Extended 100 MG CAPSULE 200 MG PO ×2 (11:08→20:58)
[2022-10-31] MEDS: Cyanocobalamin (Vitamin B-12) 1,000 MCG TABLET 1000 MCG PO (11:11)
[2022-10-31] MEDS: Atorvastatin Calcium 40 MG TABLET PO (11:11)
[2022-10-31] MEDS: Ferrous Sulfate 324 MG TABLET.DR PO (11:11)
[2022-10-31] MEDS: Cholecalciferol (Vitamin D3) 25 MCG TABLET 50 MCG PO (11:11)
[2022-10-31] MEDS: 0.9 % Sodium Chloride Flush 3 ML SYRINGE IVFLUSH ×2 (11:12→21:00)
[2022-10-31 12:00] VITALS: BP 126/60; PULSE 61; RESP 20; TEMP 36.8; O2SAT 98
[2022-10-31] MEDS: FLUoxetine HCl 10 MG CAPSULE PO (12:29)
[2022-10-31] MEDS: Zinc Sulfate 220 MG CAPSULE PO (12:29)
--- NOTE | 2022-10-31 13:59 | PM.PNNEP ---
Subjective Subjective Date of Service: 11/05/22 Interval history: Feels better overall but reporting back pain INR at 2, on heparin drip No reported overnight events Physical Exam Vital Signs: Vital Signs: Last Vital Signs Temp 98.3 F 10/31/22 12:00 Pulse 61 10/31/22 12:00 Resp 20 10/31/22 12:00 BP 126/60 10/31/22 12:00 Pulse Ox 98 10/31/22 12:00 O2 Del Method Room Air 10/31/22 12:00 BMI result Body Mass Index 20.7 Const: General: cooperative, comfortable and no acute distress Orientation/consciousness: patient oriented x3 Eyes: EOM: EOMs intact bilaterally Neck: Neck: Yes supple Resp: Auscultation: diminished lung sounds Cardio: Rate: regular rate GI: Palpation (GI): Soft to palpation Skin: General skin exam: no rashes or lesions noted Neuro: General: patient oriented x3 and moves all extremities Objective Data Labs 10/31/22 02:17 10/31/22 02:17 Labs: Laboratory Results - last 24 hr 10/30/22 10/30/22 10/31/22 18:57 18:57 02:17 WBC 6.8 RBC 2.63 L Hgb 9.4 L Hct 28.4 L MCV 108.0 H MCH 35.7 H MCHC 33.1 RDW 13.6 Plt Count 182 MPV 10.1 Absolute Nucleated RBC 0.000 Nucleated RBC % (auto) 0.0 PT Cancelled 22.8 H INR Cancelled 1.9 H aPTT Heparin Protocol 52.6 L Sodium Potassium Chloride Carbon Dioxide Anion Gap BUN Creatinine Estim Creat Clear Calc Estimated GFR Random Glucose Calcium 10/31/22 10/31/22 10/31/22 02:17 02:17 06:25 WBC RBC Hgb Hct MCV MCH MCHC RDW Plt Count MPV Absolute Nucleated RBC Nucleated RBC % (auto) PT 23.2 H INR 2.0 H aPTT Heparin Protocol 75.7 D Sodium 136 Potassium 4.9 Chloride 98 Carbon Dioxide 28 Anion Gap 15 BUN 42 H Creatinine 2.13 H Estim Creat Clear Calc 26.1 Estimated GFR 30 Random Glucose 109 Calcium 9.0 10/31/22 09:13 WBC RBC Hgb Hct MCV MCH MCHC RDW Plt Count MPV Absolute Nucleated RBC Nucleated RBC % (auto) PT INR aPTT Heparin Protocol 49.8 L D Sodium Potassium Chloride Carbon Dioxide Anion Gap BUN Creatinine Estim Creat Clear Calc Estimated GFR Random Glucose Calcium Microbiology Microbiology Results: Microbiology 10/23/22 16:09 Blood - Venous Blood Culture - Final No growth after 5 days. 10/23/22 15:32 Urine clean catch - Urine whelan top Urine Culture - Final Enterococcus faecalis 10/23/22 16:08 Blood - Venous Blood Culture - Final Coag negative Staphylococcus Procedures Date of Service Date of Service: 10/31/22 Assessment & Plan Assessment and plan (1) Acute kidney injury superimposed on chronic kidney disease: Status: Acute Assessment and Plan: ANUPAMA multifactorial- Cr bumped up again Likely due to tubular injury as well as obstruction Also was on ARB which might have caused altered autoregulation in the kidney Was hypervolemic at presentation which has improved with diuresis ARB on hold. Trial of voiding - watch for retention Shall F/U( He wants to follow with [facility] as outpatient) Time Spent With Patient Time: Total time managing care of this patient today ____ minutes. Progress Note: Quality Stroke Does the patient have a stroke diagnosis?: No
--- NOTE | 2022-10-31 14:16 | HO.PM.IMPN ---
Subjective Subjective Date of Service: 10/31/22 Interval History: Feels better breathing reporting severe back pain INR at 2, on heparin drip No reported overnight events Review of Systems Review of Systems: Yes all other systems are reviewed and are negative Physical Exam Vital Signs: Vital Signs: Last Vital Signs Temp 98.3 F 10/31/22 12:00 Pulse 61 10/31/22 12:00 Resp 20 10/31/22 12:00 BP 126/60 10/31/22 12:00 Pulse Ox 98 10/31/22 12:00 O2 Del Method Room Air 10/31/22 12:00 BMI result Body Mass Index 20.7 Const: Other: Constitutional : Awake, interactive, in pain on occasions Neck : Normal inspection, Supple Cardiovascular : RRR, no JVP, trace lower extremity edema Respiratory : good bilateral air entry, no crackles, wheezes or rhonchi Gastrointestinal: soft, lax, Normal bowel sounds, Non tender Skin : Warm, Dry Neurological : Alert & oriented x3, No focal deficit Objective Data Active Medications Acetaminophen (Acetaminophen 325 Mg Tablet) 650 mg PO Q6H PRN PRN Reason: Pain, Mild (Pain Scale 1-3) Last Admin: 10/30/22 12:52 Dose: 650 mg Documented By: RAMIREZ Atorvastatin Calcium (Atorvastatin Calcium 40 Mg Tablet) 40 mg PO DAILY [facility] Last Admin: 10/31/22 11:11 Dose: 40 mg Documented By: LATRICE Cyanocobalamin (Cyanocobalamin (Vitamin B-12) 1,000 Mcg Tablet) 1,000 mcg PO DAILY [facility] Last Admin: 10/31/22 11:11 Dose: 1,000 mcg Documented By: LATRICE Diltiazem HCl (Diltiazem Hcl Cd 240 Mg Cap.Er.Deg) 240 mg PO BEDTIME [facility]; Protocol Last Admin: 10/30/22 20:01 Dose: 240 mg Documented By: ANTOIC Ferrous Sulfate (Ferrous Sulfate 324 Mg Tablet.Dr) 324 mg PO DAILY [facility] Last Admin: 10/31/22 11:11 Dose: 324 mg Documented By: LATRICE Fluoxetine HCl (Fluoxetine Hcl 10 Mg Capsule) 10 mg PO DAILY [facility] Last Admin: 10/31/22 12:29 Dose: 10 mg Documented By: LATRICE Folic Acid (Folic Acid 1 Mg Tablet) 1 mg PO DAILY [facility] Last Admin: 10/31/22 11:08 Dose: 1 mg Documented By: LATRICE Heparin Sodium (Porcine) (Heparin Sodium,Porcine 5,000 Unit/Ml Vial) 2,500 unit 40 unit/kg (2500 unit) IVPUSH PROTOCOL BOLUS PRN; Protocol PRN Reason: 40 unit/kg - Heparin Protocol Last Admin: 10/31/22 10:15 Dose: 2,500 unit Documented By: LATRICE Heparin Sodium (Porcine) (Heparin Sodium,Porcine 5,000 Unit/Ml Vial) 5,100 unit 80 unit/kg (5100 unit) IVPUSH PROTOCOL BOLUS PRN; Protocol PRN Reason: 80 unit/kg - Heparin Protocol Hydromorphone HCl (Hydromorphone Hcl 0.5 Mg/0.5 Ml Syringe) 0.5 mg IVPUSH Q4H PRN; Protocol PRN Reason: moderate pain Heparin Sodium/Sodium Chloride (Heparin Sodium,Porcine/1/2ns) 25,000 unit in 250 mls @ 0 mls/hr IVCONT .Q0M [facility]; Protocol Last Titration: 10/31/22 10:10 Dose: 16 units/kg/hr, 10.19 mls/hr Documented By: LATRICE Co-signed By: RUDOLPH Lidocaine (Lidocaine 4 % Patch Adh..Patch) 1 patch TRANSDERMA DAILY [facility]; Protocol Last Admin: 10/31/22 11:05 Dose: 1 patch Documented By: LATRICE Ondansetron HCl (Ondansetron Hcl 4 Mg/2 Ml Vial) 4 mg IVPUSH Q8H PRN PRN Reason: nausea Last Admin: 10/30/22 17:47 Dose: 4 mg Documented By: RAMIREZ Oxycodone HCl (Oxycodone Hcl Immed Release 5 Mg Tablet) 5 mg PO BID PRN PRN Reason: moderate pain Last Admin: 10/31/22 11:08 Dose: 5 mg Documented By: LATRICE Pharmacy Consult (Consult Rx Perform Med Rec) 1 each MISCELLANE ONCE PRN PRN Reason: Consult order Phenytoin Sodium (Phenytoin Sodium Extended 100 Mg Capsule) 200 mg PO BID [facility] Last Admin: 10/31/22 11:08 Dose: 200 mg Documented By: LATRICE Polyethylene Glycol (Polyethylene Glycol 3350 17 Gm Powd.Pack) 17 gm PO DAILY [facility] Last Admin: 10/31/22 11:04 Dose: 17 gm Documented By: LATRICE Sodium Chloride (0.9 % Sodium Chloride Flush 3 Ml Syringe) 3 ml IVFLUSH QSHIFT [facility] Last Admin: 10/31/22 11:12 Dose: 3 ml Documented By: LATRICE Tamsulosin HCl (Tamsulosin Hcl 0.4 Mg Capsule) 0.8 mg PO BEDTIME [facility] Last Admin: 10/30/22 20:01 Dose: 0.8 mg Documented By: CHRISTOPHER Vitamin D (Cholecalciferol (Vitamin D3) 25 Mcg Tablet) 50 mcg PO DAILY [facility] Last Admin: 10/31/22 11:11 Dose: 50 mcg Documented By: LATRICE Warfarin Sodium (Warfarin Sodium 3 Mg Tablet) 3 mg PO SUTUTHSA@1800 [facility] Warfarin Sodium (Warfarin Sodium 0.5 Mg Halftab) 1.5 mg PO MOWEFR@1800 [facility] Zinc Sulfate (Zinc Sulfate 220 Mg Capsule) 220 mg PO DAILY [facility] Last Admin: 10/31/22 12:29 Dose: 220 mg Documented By: LATRICE Labs 10/31/22 02:17 10/31/22 02:17 Labs: Laboratory Results - last 24 hr 10/30/22 10/30/22 10/31/22 18:57 18:57 02:17 MCV 108.0 H MCH 35.7 H MCHC 33.1 RDW 13.6 Plt Count 182 MPV 10.1 Absolute Nucleated RBC 0.000 Nucleated RBC % (auto) 0.0 PT Cancelled 22.8 H INR Cancelled 1.9 H aPTT Heparin Protocol 52.6 L Anion Gap Estim Creat Clear Calc Estimated GFR Random Glucose Calcium 10/31/22 10/31/22 10/31/22 02:17 02:17 06:25 MCV MCH MCHC RDW Plt Count MPV Absolute Nucleated RBC Nucleated RBC % (auto) PT 23.2 H INR 2.0 H aPTT Heparin Protocol 75.7 D Anion Gap 15 Estim Creat Clear Calc 26.1 Estimated GFR 30 Random Glucose 109 Calcium 9.0 10/31/22 09:13 MCV MCH MCHC RDW Plt Count MPV Absolute Nucleated RBC Nucleated RBC % (auto) PT INR aPTT Heparin Protocol 49.8 L D Anion Gap Estim Creat Clear Calc Estimated GFR Random Glucose Calcium Assessment and Plan (1) Subtherapeutic international normalized ratio (INR): Status: Acute (2) Acute kidney injury superimposed on chronic kidney disease: Status: Acute (3) Low back pain: Status: Acute Plan 77M PMH chronic diasotlic chf, chronic afib, mechanical MVR, AVR, CAD s/p CABG, bph, htn, pulmonary fibrosis presented with low back pain, found to have anupama ANUPAMA on CKD III partially obstructive - fontana, flomax - will do voiding trial and dc fontana c/w cardiorenal - iv diuresis, monitor closely - continues to improve with diuresis nephro appreciated holding losartan acute on chronic right sided chf cotninue bumex 2mg iv bid, on dc will restart torsemide at previous reduced dose of 80mg bid po back pain Mild degenerative changes are present in the spine most marked at L4-L5 also with T11 sclerosis and partial collapse - though clinically this appears to be higher than patient's pain location ATC Oxycodone and Tylenol PRN Dilaudid PT - can return to [facility] on discharge hypokalemia replaced monitor mechanical avr, mvr, chronic afib continue cardizem now with subtherapeutic inr -2 increase warafrin dose continue heparin bridge due to high risk for cva, monitor inr, ptt CAD coumadin, statin bph flomax htn cardizem pulmonary fibrosis stable dvt prophylaxis - on coumadin full code reason for continued hospitalization: heparin bridge, pain uncontrolled Time Spent With Patient Time: Total time managing care of this patient today ____ minutes. Quality Stroke Does the patient have a stroke diagnosis?: No VTE Prior VTE?: No VTE Risk Level:: Medical - moderate - high VTE Device Contraindication: Treatment Not Indicated VTE Drug Contraindication: N/A - Med Ordered
[2022-10-31 15:25] VITALS: BP 127/71; PULSE 61; RESP 18; TEMP 37.1; O2SAT 95
[2022-10-31] MEDS: Acetaminophen 325 MG TABLET 975 MG PO ×2 (15:36→22:56)
[2022-10-31 16:36] VITALS: RESP 16
[2022-10-31] MEDS: HYDROmorphone HCl 0.5 MG/0.5 ML SYRINGE IVPUSH ×2 (16:36→21:40)
[2022-10-31] MEDS: Heparin Sodium,Porcine/1/2NS 25,000 UNIT/250 ML IV.SOLN 10.19 UNIT IVCONT (16:37)
[2022-10-31] MEDS: Warfarin Sodium 3 MG TABLET PO (17:18)
[2022-10-31 18:10] LABS: PTT Heparin Drip 116.8 SEC (53-77.9)
[2022-10-31 19:35] VITALS: BP 123/58; PULSE 62; RESP 18; TEMP 36.6; O2SAT 97
[2022-10-31 20:04] LABS: PTT Heparin Drip 72.2 SEC (53-77.9)
--- NOTE | 2022-10-31 20:44 | PC.NURSE ---
Assumed care at 07:00, patient alert/drowsy, oriented x3, on heparin gtt and also coumadin. Patient with chronic pain of around his mid lower back/more right sided than left, chronic but excruciating, not sharp, constant, rated 10/10; as per emar, oxycodone scheduled TID, was 5 mg, also scheduled tylenol, patient expressed doubt in efficacy of this regimen, saying he takes 10 mg percocet daily at home, but is willing to try it. He says he has been taking twice this dose for 20 years at home and might as well not bother asking for anything, but he was willing to try this. 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
[2022-10-31] MEDS: Tamsulosin HCL 0.4 MG CAPSULE 0.8 MG PO (20:57)
[2022-10-31] MEDS: dilTIAZem HCL CD 240 MG CAP.ER.DEG PO (20:58)
[2022-10-31] MEDS: oxyCODONE HCl Immed Release 5 MG TABLET 10 MG PO (22:59)
[2022-11-01] VITALS (7 sets, daily range): BP systolic 95–137; BP diastolic 54–70; PULSE 52–78; RESP 18–19; TEMP 36.4–37.3; O2SAT 95–99
[2022-11-01 03:34] LABS: INTERNATIONAL NORM RATIO 2.1 (0.9-1.1); Prothrombin Time 24.7 SEC (10.0-13.1)
[2022-11-01 03:37] LABS: PTT Heparin Drip 49.8 SEC (53-77.9)
[2022-11-01 04:12] LABS: Anion Gap 17 (12-20); Blood Urea Nitrogen 47 mg/dL (9-16); Carbon Dioxide 25 mmol/L (22-29); Chloride 98 mmol/L (96-108); Creatinine Clr Calc Pharmacy 27.3; Estimated Glomerular Filt Rate 32; Glucose Random 106 mg/dL (60-115); Potassium 4.9 mmol/L (3.3-5.1); Sodium 135 mmol/L (135-145)
[2022-11-01] MEDS: Heparin Sodium,Porcine 5,000 UNIT/ML VIAL 2500 UNIT IVPUSH (04:32)
[2022-11-01] MEDS: HYDROmorphone HCl 0.5 MG/0.5 ML SYRINGE IVPUSH ×3 (04:37→16:52)
[2022-11-01] MEDS: 0.9 % Sodium Chloride Flush 3 ML SYRINGE IVFLUSH ×3 (09:08→20:17)
[2022-11-01] MEDS: FLUoxetine HCl 10 MG CAPSULE PO (09:08)
[2022-11-01] MEDS: Phenytoin Sodium Extended 100 MG CAPSULE 200 MG PO ×2 (09:08→20:18)
[2022-11-01] MEDS: Lidocaine 4 % Patch ADH..PATCH 1 PATCH TRANSDERMA (09:08)
[2022-11-01] MEDS: polyethylene glycoL 3350 17 GM POWD.PACK PO (09:08)
[2022-11-01] MEDS: Acetaminophen 325 MG TABLET 975 MG PO ×3 (09:09→20:21)
[2022-11-01] MEDS: Cholecalciferol (Vitamin D3) 25 MCG TABLET 50 MCG PO (09:09)
[2022-11-01] MEDS: Ferrous Sulfate 324 MG TABLET.DR PO (09:09)
[2022-11-01] MEDS: oxyCODONE HCl Immed Release 5 MG TABLET 10 MG PO ×3 (09:09→20:22)
[2022-11-01] MEDS: Cyanocobalamin (Vitamin B-12) 1,000 MCG TABLET 1000 MCG PO (09:09)
[2022-11-01] MEDS: Atorvastatin Calcium 40 MG TABLET PO (09:09)
[2022-11-01] MEDS: Folic Acid 1 MG TABLET PO (09:10)
[2022-11-01 10:59] LABS: PTT Heparin Drip 83.4 SEC (53-77.9)
--- NOTE | 2022-11-01 12:02 | PM.PNNEP ---
Subjective Subjective Date of Service: 11/01/22 Interval history: seen and examined feels better Physical Exam Vital Signs: Vital Signs: Last Vital Signs Temp 97.8 F 11/01/22 07:32 Pulse 69 11/01/22 07:32 Resp 18 11/01/22 07:32 BP 137/64 11/01/22 07:32 Pulse Ox 95 11/01/22 07:32 O2 Del Method Room Air 11/01/22 07:32 BMI result Body Mass Index 20.7 Const: General: no acute distress HEENT: Head: Yes normocephalic and Yes atraumatic Neck: Neck: Yes supple Resp: Auscultation: diminished lung sounds Cardio: Heart sounds: S1 normal heart sound present and S2 normal heart sound present GI: Palpation (GI): Soft to palpation Extrem: General: Yes no pedal edema Objective Data Labs 10/31/22 02:17 11/01/22 03:19 Labs: Laboratory Results - last 24 hr 10/31/22 10/31/22 11/01/22 16:43 19:05 03:19 PT INR aPTT Heparin Protocol 116.8 H* D 72.2 D Sodium 135 Potassium 4.9 Chloride 98 Carbon Dioxide 25 Anion Gap 17 BUN 47 H Creatinine 2.04 H Estim Creat Clear Calc 27.3 Estimated GFR 32 Random Glucose 106 Calcium 9.0 11/01/22 11/01/22 11/01/22 03:19 03:19 10:43 PT Cancelled 24.7 H INR Cancelled 2.1 H aPTT Heparin Protocol 49.8 L D 83.4 H D Sodium Potassium Chloride Carbon Dioxide Anion Gap BUN Creatinine Estim Creat Clear Calc Estimated GFR Random Glucose Calcium Microbiology Microbiology Results: Microbiology 10/23/22 16:09 Blood - Venous Blood Culture - Final No growth after 5 days. 10/23/22 15:32 Urine clean catch - Urine whelan top Urine Culture - Final Enterococcus faecalis 10/23/22 16:08 Blood - Venous Blood Culture - Final Coag negative Staphylococcus Procedures Date of Service Date of Service: 11/01/22 Assessment & Plan Assessment and plan (1) ANUPAMA (acute kidney injury): Status: Acute (2) CKD (chronic kidney disease) stage 3, GFR 30-59 ml/min: Status: Acute Plan Scr up ANUPAMA multifactorial: -renal hypoperfusion -obstructive uropathy -CRS known CKD baseline Scr ~ 1.5 mg/dl REC Kauffman voiding trial follow kidney function and electrolytes o/p renal f/u Time Spent With Patient Time: Total time managing care of this patient today ____ minutes. Progress Note: Quality Stroke Does the patient have a stroke diagnosis?: No
--- NOTE | 2022-11-01 12:05 | MHC.CLN ---
F/U PO INTAKE 75-100% DIET RX: CARDIAC-APPROPRIATE PT RECEIVING ENSURE BID PROVIDE 700KCLAS, 40G PROTEIN CONTINUE TO MONITOR PO AND SUPP ACCEPTANCE RD FOLLOWING WEEKLY R/T 88% IBW
[2022-11-01] MEDS: Zinc Sulfate 220 MG CAPSULE PO (12:13)
--- NOTE | 2022-11-01 14:06 | P.PNIM_ITS ---
Subjective Subjective Date of Service: 11/01/22 Interval History: Feels better breathing reporting severe back pain INR at 2.1, on heparin drip No reported overnight events Review of Systems Review of Systems: Yes all other systems are reviewed and are negative Physical Exam Vital Signs: Vital Signs: Last Vital Signs Temp 97.5 F 11/01/22 12:00 Pulse 72 11/01/22 12:00 Resp 18 11/01/22 12:00 BP 115/70 11/01/22 12:00 Pulse Ox 98 11/01/22 12:00 O2 Del Method Room Air 11/01/22 12:00 BMI result Body Mass Index 20.7 Const: Other: Constitutional : Awake, interactive, in pain on occasions Neck : Normal inspection, Supple Cardiovascular : RRR, no JVP, trace lower extremity edema Respiratory : good bilateral air entry, no crackles, wheezes or rhonchi Gastrointestinal: soft, lax, Normal bowel sounds, Non tender Skin : Warm, Dry Neurological : Alert & oriented x3, No focal deficit Objective Data Active Medications Acetaminophen (Acetaminophen 325 Mg Tablet) 650 mg PO Q6H PRN PRN Reason: Pain, Mild (Pain Scale 1-3) Last Admin: 10/30/22 12:52 Dose: 650 mg Documented By: RAMIREZ Acetaminophen (Acetaminophen 325 Mg Tablet) 975 mg PO TID [facility] Last Admin: 11/01/22 09:09 Dose: 975 mg Documented By: RAMIREZ Atorvastatin Calcium (Atorvastatin Calcium 40 Mg Tablet) 40 mg PO DAILY [facility] Last Admin: 11/01/22 09:09 Dose: 40 mg Documented By: RAMIREZ Cyanocobalamin (Cyanocobalamin (Vitamin B-12) 1,000 Mcg Tablet) 1,000 mcg PO DAILY [facility] Last Admin: 11/01/22 09:09 Dose: 1,000 mcg Documented By: RAMIREZ Diltiazem HCl (Diltiazem Hcl Cd 240 Mg Cap.Er.Deg) 240 mg PO BEDTIME [facility]; Protocol Last Admin: 10/31/22 20:58 Dose: 240 mg Documented By: ANTOIC Ferrous Sulfate (Ferrous Sulfate 324 Mg Tablet.Dr) 324 mg PO DAILY [facility] Last Admin: 11/01/22 09:09 Dose: 324 mg Documented By: RAMIREZ Fluoxetine HCl (Fluoxetine Hcl 10 Mg Capsule) 10 mg PO DAILY [facility] Last Admin: 11/01/22 09:08 Dose: 10 mg Documented By: RAMIREZ Folic Acid (Folic Acid 1 Mg Tablet) 1 mg PO DAILY [facility] Last Admin: 11/01/22 09:10 Dose: 1 mg Documented By: RAMIREZ Heparin Sodium (Porcine) (Heparin Sodium,Porcine 5,000 Unit/Ml Vial) 2,500 unit 40 unit/kg (2500 unit) IVPUSH PROTOCOL BOLUS PRN; Protocol PRN Reason: 40 unit/kg - Heparin Protocol Last Admin: 11/01/22 04:32 Dose: 2,500 unit Documented By: ANTOIC Heparin Sodium (Porcine) (Heparin Sodium,Porcine 5,000 Unit/Ml Vial) 5,100 unit 80 unit/kg (5100 unit) IVPUSH PROTOCOL BOLUS PRN; Protocol PRN Reason: 80 unit/kg - Heparin Protocol Hydromorphone HCl (Hydromorphone Hcl 0.5 Mg/0.5 Ml Syringe) 0.5 mg IVPUSH Q4H PRN; Protocol PRN Reason: moderate pain Last Admin: 11/01/22 09:07 Dose: 0.5 mg Documented By: RAMIREZ Heparin Sodium/Sodium Chloride (Heparin Sodium,Porcine/1/2ns) 25,000 unit in 250 mls @ 0 mls/hr IVCONT .Q0M [facility]; Protocol Last Titration: 11/01/22 12:10 Dose: 12 units/kg/hr, 7.64 mls/hr Documented By: RAMIREZ Co-signed By: RUDOLPH Lidocaine (Lidocaine 4 % Patch Adh..Patch) 1 patch TRANSDERMA DAILY [facility]; Protocol Last Admin: 11/01/22 09:08 Dose: 1 patch Documented By: RAMIREZ Ondansetron HCl (Ondansetron Hcl 4 Mg/2 Ml Vial) 4 mg IVPUSH Q8H PRN PRN Reason: nausea Last Admin: 10/30/22 17:47 Dose: 4 mg Documented By: RAMIREZ Oxycodone HCl (Oxycodone Hcl Immed Release 5 Mg Tablet) 10 mg PO TID [facility] Last Admin: 11/01/22 09:09 Dose: 10 mg Documented By: RAMIREZ Pharmacy Consult (Consult Rx Perform Med Rec) 1 each MISCELLANE ONCE PRN PRN Reason: Consult order Phenytoin Sodium (Phenytoin Sodium Extended 100 Mg Capsule) 200 mg PO BID [facility] Last Admin: 11/01/22 09:08 Dose: 200 mg Documented By: RAMIREZ Polyethylene Glycol (Polyethylene Glycol 3350 17 Gm Powd.Pack) 17 gm PO DAILY [facility] Last Admin: 11/01/22 09:08 Dose: 17 gm Documented By: RAMIREZ Sodium Chloride (0.9 % Sodium Chloride Flush 3 Ml Syringe) 3 ml IVFLUSH QSHIFT [facility] Last Admin: 11/01/22 09:08 Dose: 3 ml Documented By: RAMIREZ Tamsulosin HCl (Tamsulosin Hcl 0.4 Mg Capsule) 0.8 mg PO BEDTIME [facility] Last Admin: 10/31/22 20:57 Dose: 0.8 mg Documented By: CHRISTOPHER Vitamin D (Cholecalciferol (Vitamin D3) 25 Mcg Tablet) 50 mcg PO DAILY [facility] Last Admin: 11/01/22 09:09 Dose: 50 mcg Documented By: RAMIREZ Warfarin Sodium (Warfarin Sodium 3 Mg Tablet) 3 mg PO SUTUTHSA@1800 [facility] Last Admin: 10/31/22 17:18 Dose: 3 mg Documented By: LATRICE Warfarin Sodium (Warfarin Sodium 3 Mg Tablet) 3 mg PO MOWEFR@1800 [facility] Zinc Sulfate (Zinc Sulfate 220 Mg Capsule) 220 mg PO DAILY [facility] Last Admin: 11/01/22 12:13 Dose: 220 mg Documented By: RAMIREZ Labs 10/31/22 02:17 11/01/22 03:19 Labs: Laboratory Results - last 24 hr 10/31/22 10/31/22 11/01/22 16:43 19:05 03:19 PT INR aPTT Heparin Protocol 116.8 H* D 72.2 D Anion Gap 17 Estim Creat Clear Calc 27.3 Estimated GFR 32 Random Glucose 106 Calcium 9.0 11/01/22 11/01/22 11/01/22 03:19 03:19 10:43 PT Cancelled 24.7 H INR Cancelled 2.1 H aPTT Heparin Protocol 49.8 L D 83.4 H D Anion Gap Estim Creat Clear Calc Estimated GFR Random Glucose Calcium Assessment and Plan (1) ANUPAMA (acute kidney injury): Status: Acute (2) Subtherapeutic international normalized ratio (INR): Status: Acute (3) Acute urinary retention: Status: Acute Plan 77M PMH chronic diasotlic chf, chronic afib, mechanical MVR, AVR, CAD s/p CABG, bph, htn, pulmonary fibrosis presented with low back pain, found to have anupama ANUPAMA on CKD III Cr improved to 2 partially obstructive - flomax dc font[place] w voiding trials c/w cardiorenal - iv diuresis, monitor closely - continues to improve with diuresis nephro appreciated holding losartan acute on chronic right sided chf DC bumex 2mg iv bid restart torsemide at 80mg bid po back pain Mild degenerative changes are present in the spine most marked at L4-L5 also with T11 sclerosis and partial collapse - though clinically this appears to be higher than patient's pain location ATC Oxycodone and Tylenol PRN Dilaudid PT - can return to [facility] on discharge UTI U.Cx grew Enterococcus treat with Amoxicillin hypokalemia replaced monitor mechanical avr, mvr, chronic afib continue cardizem now with subtherapeutic inr -2 increase warafrin dose 3 mg daily continue heparin bridge due to high risk for cva, monitor inr, ptt CAD coumadin, statin bph flomax htn cardizem pulmonary fibrosis stable dvt prophylaxis - on coumadin full code reason for continued hospitalization: heparin bridge, pain uncontrolled Time Spent With Patient Time: Total time managing care of this patient today ____ minutes. Quality Stroke Does the patient have a stroke diagnosis?: No VTE Prior VTE?: No VTE Risk Level:: Medical - moderate - high VTE Device Contraindication: Treatment Not Indicated VTE Drug Contraindication: N/A - Med Ordered
[2022-11-01] MEDS: Torsemide 20 MG TABLET 80 MG PO ×2 (15:29→20:19)
--- NOTE | 2022-11-01 16:23 | MHC.CM.PN ---
EMR REVIEWED AND PER MD ROUNDS, PT NOT MEDICALLY CLEARED FOR DC (HEPARIN DRIP) CM WILL CONTINUE TO FOLLOW
[2022-11-01] MEDS: Cyclobenzaprine HCl 5 MG TABLET PO ×2 (16:51→20:19)
[2022-11-01] MEDS: Warfarin Sodium 3 MG TABLET PO ×2 (16:52)
[2022-11-01 18:50] LABS: PTT Heparin Drip 62.2 SEC (53-77.9)
[2022-11-01] MEDS: Tamsulosin HCL 0.4 MG CAPSULE 0.8 MG PO (20:18)
[2022-11-01] MEDS: dilTIAZem HCL CD 240 MG CAP.ER.DEG PO (20:19)
[2022-11-01] MEDS: Amoxicillin 500 MG CAPSULE PO (21:21)
[2022-11-02] VITALS: BP 102/53; PULSE 66; RESP 16; TEMP 37.3; O2SAT 98
[2022-11-02 00:52] LABS: PTT Heparin Drip 59.7 SEC (53-77.9)
[2022-11-02] MEDS: Heparin Sodium,Porcine/1/2NS 25,000 UNIT/250 ML IV.SOLN 7.64 UNIT IVCONT (01:51)
[2022-11-02 03:42] VITALS: BP 147/72; PULSE 77; TEMP 37.4; O2SAT 98
--- NOTE | 2022-11-02 06:10 | PC.NURSE ---
Pt had an uneventful night, slept the beginning of the shift, up numerous times requesting the bathroom, bedside commode, and urinal, voided on several occasions but no BM noted, he may possibly benefit from a stool softener, he took all scheduled pain meds, he was explained the importance of taking scheduled meds on time, he did not complain of any pain throughout the night, pt remains in afib on tele, no distress noted, will continue to monitor.
[2022-11-02 07:09] LABS: Hemoglobin 9.8 g/dl (14.0-18.0); Mean Corpuscular HGB Conc 32.7 g/dl (31.0-36.0); Mean Corpuscular Hemoglobin 35.5 pg (27.0-33.0); Mean Corpuscular Volume 108.7 fL (80.0-98.0); Platelet Count 206 X10*3/uL (160-400); Red Blood Count 2.76 X10*6/uL (4.60-5.80); Red Cell Distribution Width 13.6 % (11.0-16.0); White Blood Count 8.8 X10*3/uL (4.8-10.8)
[2022-11-02 07:14] LABS: INTERNATIONAL NORM RATIO 2.7 (0.9-1.1); Prothrombin Time 31.9 SEC (10.0-13.1)
[2022-11-02 07:17] LABS: PTT Heparin Drip 63.5 SEC (53-77.9)
[2022-11-02 07:31] LABS: Anion Gap 19 (12-20); Blood Urea Nitrogen 44 mg/dL (9-16); Calcium 9.3 mg/dL (8.4-10.2); Carbon Dioxide 25 mmol/L (22-29); Chloride 97 mmol/L (96-108); Estimated Glomerular Filt Rate 34; Glucose Random 99 mg/dL (60-115); Potassium 4.3 mmol/L (3.3-5.1); Sodium 137 mmol/L (135-145)
[2022-11-02 07:45] VITALS: BP 154/76; PULSE 73; RESP 20; TEMP 37.2; O2SAT 99
[2022-11-02] MEDS: Phenytoin Sodium Extended 100 MG CAPSULE 200 MG PO ×2 (08:27→20:10)
[2022-11-02] MEDS: Cholecalciferol (Vitamin D3) 25 MCG TABLET 50 MCG PO (08:28)
[2022-11-02] MEDS: Torsemide 20 MG TABLET 80 MG PO ×2 (08:29→20:13)
[2022-11-02] MEDS: Zinc Sulfate 220 MG CAPSULE PO (08:29)
[2022-11-02] MEDS: Acetaminophen 325 MG TABLET 975 MG PO ×3 (08:30→20:11)
[2022-11-02] MEDS: oxyCODONE HCl Immed Release 5 MG TABLET 10 MG PO (08:31)
[2022-11-02] MEDS: Atorvastatin Calcium 40 MG TABLET PO (08:31)
[2022-11-02] MEDS: FLUoxetine HCl 10 MG CAPSULE PO (08:32)
[2022-11-02] MEDS: Folic Acid 1 MG TABLET PO (08:32)
[2022-11-02] MEDS: Cyclobenzaprine HCl 5 MG TABLET PO ×3 (08:32→22:50)
[2022-11-02] MEDS: Ferrous Sulfate 324 MG TABLET.DR PO (08:32)
[2022-11-02] MEDS: Cyanocobalamin (Vitamin B-12) 1,000 MCG TABLET 1000 MCG PO (08:32)
[2022-11-02] MEDS: Lidocaine 4 % Patch ADH..PATCH 1 PATCH TRANSDERMA (08:33)
[2022-11-02] MEDS: polyethylene glycoL 3350 17 GM POWD.PACK PO (08:33)
[2022-11-02] MEDS: 0.9 % Sodium Chloride Flush 3 ML SYRINGE IVFLUSH ×3 (08:33→22:53)
[2022-11-02] MEDS: HYDROmorphone HCl 0.5 MG/0.5 ML SYRINGE IVPUSH (08:56)
--- NOTE | 2022-11-02 08:56 | P.PNIM_ITS ---
Subjective Subjective Date of Service: 11/02/22 Interval History: Feels better breathing reporting severe back pain and inability to do much INR at 2.7, No reported overnight events Review of Systems Review of Systems: Yes all other systems are reviewed and are negative Physical Exam Vital Signs: Vital Signs: Last Vital Signs Temp 98.9 F 11/02/22 07:45 Pulse 73 11/02/22 07:45 Resp 20 11/02/22 07:45 BP 154/76 H 11/02/22 07:45 Pulse Ox 99 11/02/22 07:45 O2 Del Method Room Air 11/02/22 07:45 BMI result Body Mass Index 20.7 Const: Other: Constitutional : Awake, interactive, in pain on occasions Neck : Normal inspection, Supple Cardiovascular : RRR, no JVP, trace lower extremity edema Respiratory : good bilateral air entry, no crackles, wheezes or rhonchi Gastrointestinal: soft, lax, Normal bowel sounds, Non tender Skin : Warm, Dry Neurological : Alert & oriented x3, No focal deficit Objective Data Active Medications Acetaminophen (Acetaminophen 325 Mg Tablet) 650 mg PO Q6H PRN PRN Reason: Pain, Mild (Pain Scale 1-3) Last Admin: 10/30/22 12:52 Dose: 650 mg Documented By: RAMIREZ Acetaminophen (Acetaminophen 325 Mg Tablet) 975 mg PO TID [facility] Last Admin: 11/02/22 08:30 Dose: 975 mg Documented By: DAVDI Amoxicillin (Amoxicillin 500 Mg Capsule) 500 mg PO BID [facility] Last Admin: 11/01/22 21:21 Dose: 500 mg Documented By: CUAUHTEMOC Atorvastatin Calcium (Atorvastatin Calcium 40 Mg Tablet) 40 mg PO DAILY [facility] Last Admin: 11/02/22 08:31 Dose: 40 mg Documented By: DAVID Cyanocobalamin (Cyanocobalamin (Vitamin B-12) 1,000 Mcg Tablet) 1,000 mcg PO DAILY [facility] Last Admin: 11/02/22 08:32 Dose: 1,000 mcg Documented By: DAVID Cyclobenzaprine HCl (Cyclobenzaprine Hcl 5 Mg Tablet) 5 mg PO TID [facility] Last Admin: 11/02/22 08:32 Dose: 5 mg Documented By: DAVID Diltiazem HCl (Diltiazem Hcl Cd 240 Mg Cap.Er.Deg) 240 mg PO BEDTIME [facility]; Protocol Last Admin: 11/01/22 20:19 Dose: 240 mg Documented By: CUAUHTEMOC Ferrous Sulfate (Ferrous Sulfate 324 Mg Tablet.Dr) 324 mg PO DAILY [facility] Last Admin: 11/02/22 08:32 Dose: 324 mg Documented By: DAVID Fluoxetine HCl (Fluoxetine Hcl 10 Mg Capsule) 10 mg PO DAILY [facility] Last Admin: 11/02/22 08:32 Dose: 10 mg Documented By: DAVID Folic Acid (Folic Acid 1 Mg Tablet) 1 mg PO DAILY [facility] Last Admin: 11/02/22 08:32 Dose: 1 mg Documented By: DAVID Hydromorphone HCl (Hydromorphone Hcl 0.5 Mg/0.5 Ml Syringe) 0.5 mg IVPUSH Q4H PRN; Protocol PRN Reason: moderate pain Last Admin: 11/01/22 16:52 Dose: 0.5 mg Documented By: RAMIREZ Lidocaine (Lidocaine 4 % Patch Adh..Patch) 1 patch TRANSDERMA DAILY [facility]; Protocol Last Admin: 11/02/22 08:33 Dose: 1 patch Documented By: DAVID Naloxone HCl (Naloxone Hcl Nasal 4 Mg [place]) 4 mg NOSTRILALT ONCE PRN PRN Reason: Opiate Reversal Ondansetron HCl (Ondansetron Hcl 4 Mg/2 Ml Vial) 4 mg IVPUSH Q8H PRN PRN Reason: nausea Last Admin: 10/30/22 17:47 Dose: 4 mg Documented By: RAMIREZ Oxycodone HCl (Oxycodone Hcl Immed Release 15 Mg Tablet) 15 mg PO QID [facility] Pharmacy Consult (Consult Rx Perform Med Rec) 1 each MISCELLANE ONCE PRN PRN Reason: Consult order Phenytoin Sodium (Phenytoin Sodium Extended 100 Mg Capsule) 200 mg PO BID [facility] Last Admin: 11/02/22 08:27 Dose: 200 mg Documented By: DAVID Polyethylene Glycol (Polyethylene Glycol 3350 17 Gm Powd.Pack) 17 gm PO DAILY [facility] Last Admin: 11/02/22 08:33 Dose: 17 gm Documented By: DAVID Sodium Chloride (0.9 % Sodium Chloride Flush 3 Ml Syringe) 3 ml IVFLUSH QSHIFT [facility] Last Admin: 11/02/22 08:33 Dose: 3 ml Documented By: DAVID Tamsulosin HCl (Tamsulosin Hcl 0.4 Mg Capsule) 0.8 mg PO BEDTIME [facility] Last Admin: 11/01/22 20:18 Dose: 0.8 mg Documented By: CUAUHTEMOC Torsemide (Torsemide 20 Mg Tablet) 80 mg PO BID [facility]; Protocol Last Admin: 11/02/22 08:29 Dose: 80 mg Documented By: DAVID Vitamin D (Cholecalciferol (Vitamin D3) 25 Mcg Tablet) 50 mcg PO DAILY [facility] Last Admin: 11/02/22 08:28 Dose: 50 mcg Documented By: DAVID Warfarin Sodium (Warfarin Sodium 3 Mg Tablet) 3 mg PO MOWEFR@1800 [facility] Last Admin: 11/01/22 16:52 Dose: 3 mg Documented By: RAMIREZ Warfarin Sodium (Warfarin Sodium 0.5 Mg Halftab) 1.5 mg PO SUTUTHSA@1800 [facility] Zinc Sulfate (Zinc Sulfate 220 Mg Capsule) 220 mg PO DAILY [facility] Last Admin: 11/02/22 08:29 Dose: 220 mg Documented By: DAVID Labs 11/02/22 06:46 11/02/22 06:45 Labs: Laboratory Results - last 24 hr 11/01/22 11/01/22 11/02/22 10:43 18:15 00:30 MCV MCH MCHC RDW Plt Count MPV Absolute Nucleated RBC Nucleated RBC % (auto) PT INR aPTT Heparin Protocol 83.4 H D 62.2 D 59.7 Anion Gap Estim Creat Clear Calc Estimated GFR Random Glucose Calcium 11/02/22 11/02/22 11/02/22 06:45 06:45 06:46 MCV 108.7 H MCH 35.5 H MCHC 32.7 RDW 13.6 Plt Count 206 MPV 10.0 Absolute Nucleated RBC 0.000 Nucleated RBC % (auto) 0.0 PT 31.9 H INR 2.7 H aPTT Heparin Protocol 63.5 Anion Gap 19 Estim Creat Clear Calc 29.0 Estimated GFR 34 Random Glucose 99 Calcium 9.3 Assessment and Plan (1) ANUPAMA (acute kidney injury): Status: Acute (2) Subtherapeutic international normalized ratio (INR): Status: Acute (3) Acute urinary retention: Status: Acute (4) Acute UTI: Status: Acute Plan 77M PMH chronic diasotlic chf, chronic afib, mechanical MVR, AVR, CAD s/p CABG, bph, htn, pulmonary fibrosis presented with low back pain, found to have anupama ANUPAMA on CKD III Cr improved to 2 partially obstructive - flomax dc font[place] w voiding trials c/w cardiorenal - iv diuresis, monitor closely - continues to improve with diuresis nephro appreciated holding losartan acute on chronic right sided chf DC bumex 2mg iv bid restart torsemide at 80mg bid po back pain Mild degenerative changes are present in the spine most marked at L4-L5 also with T11 sclerosis and partial collapse - though clinically this appears to be higher than patient's pain location ATC Oxycodone and Tylenol PRN Dilaudid PT - can return to [facility] on discharge UTI U.Cx grew Enterococcus treat with Amoxicillin hypokalemia replaced monitor mechanical avr, mvr, chronic afib continue cardizem now with subtherapeutic inr 2.7 \warafrin dose 3 mg and 1.5 mg DC heparin bridge CAD coumadin, statin bph flomax htn cardizem pulmonary fibrosis stable dvt prophylaxis - on coumadin full code reason for continued hospitalization: pain uncontrolled Time Spent With Patient Time: Total time managing care of this patient today ____ minutes. Quality Stroke Does the patient have a stroke diagnosis?: No VTE Prior VTE?: No VTE Risk Level:: Medical - moderate - high VTE Device Contraindication: Treatment Not Indicated VTE Drug Contraindication: N/A - Med Ordered
--- NOTE | 2022-11-02 09:34 | MHC.CM.PN ---
Per 's request, TIMMY spoke with Betina at [facility] @ [phone], who has indicated that as long as Patient is functionally independent, he is able to return to his home in this [place]. TIMMY relayed this information to .
[2022-11-02] MEDS: oxyCODONE HCl Immed Release 15 MG TABLET PO ×3 (11:46→20:12)
[2022-11-02] MEDS: Amoxicillin 500 MG CAPSULE PO ×2 (11:46→20:10)
[2022-11-02] MEDS: dexAMETHasone sod phosphate 4 MG/ML VIAL IVPUSH (13:23)
--- NOTE | 2022-11-02 13:38 | PM.PNNEP ---
Subjective Subjective Date of Service: 11/02/22 Interval history: seen and examined no complaints Physical Exam Vital Signs: Vital Signs: Last Vital Signs Temp 98.9 F 11/02/22 07:45 Pulse 73 11/02/22 07:45 Resp 20 11/02/22 07:45 BP 154/76 H 11/02/22 07:45 Pulse Ox 99 11/02/22 07:45 O2 Del Method Room Air 11/02/22 07:45 BMI result Body Mass Index 20.7 Const: General: no acute distress HEENT: Head: Yes normocephalic and Yes atraumatic Neck: Neck: Yes supple Resp: Auscultation: diminished lung sounds Cardio: Heart sounds: S1 normal heart sound present and S2 normal heart sound present GI: Palpation (GI): Soft to palpation Extrem: General: Yes no pedal edema Objective Data Labs 11/02/22 06:46 11/02/22 06:45 Labs: Laboratory Results - last 24 hr 11/01/22 11/02/22 11/02/22 18:15 00:30 06:45 WBC RBC Hgb Hct MCV MCH MCHC RDW Plt Count MPV Absolute Nucleated RBC Nucleated RBC % (auto) PT 31.9 H INR 2.7 H aPTT Heparin Protocol 62.2 D 59.7 63.5 Sodium Potassium Chloride Carbon Dioxide Anion Gap BUN Creatinine Estim Creat Clear Calc Estimated GFR Random Glucose Calcium 11/02/22 11/02/22 06:45 06:46 WBC 8.8 RBC 2.76 L Hgb 9.8 L Hct 30.0 L MCV 108.7 H MCH 35.5 H MCHC 32.7 RDW 13.6 Plt Count 206 MPV 10.0 Absolute Nucleated RBC 0.000 Nucleated RBC % (auto) 0.0 PT INR aPTT Heparin Protocol Sodium 137 Potassium 4.3 Chloride 97 Carbon Dioxide 25 Anion Gap 19 BUN 44 H Creatinine 1.92 H Estim Creat Clear Calc 29.0 Estimated GFR 34 Random Glucose 99 Calcium 9.3 Microbiology Microbiology Results: Microbiology 10/23/22 16:09 Blood - Venous Blood Culture - Final No growth after 5 days. 10/23/22 15:32 Urine clean catch - Urine whelan top Urine Culture - Final Enterococcus faecalis 10/23/22 16:08 Blood - Venous Blood Culture - Final Coag negative Staphylococcus Procedures Date of Service Date of Service: 11/02/22 Assessment & Plan Assessment and plan (1) ANUPAMA (acute kidney injury): Status: Acute (2) CKD (chronic kidney disease) stage 3, GFR 30-59 ml/min: Status: Acute Plan Scr stable but above baseline ANUPAMA multifactorial: -renal hypoperfusion -obstructive uropathy -CRS known CKD baseline Scr ~ 1.5 mg/dl known right sided heart failure REC on torsemide 80 mg bid follow kidney function and electrolytes Time Spent With Patient Time: Total time managing care of this patient today ____ minutes. Progress Note: Quality Stroke Does the patient have a stroke diagnosis?: No
[2022-11-02 15:14] VITALS: BP 125/77; PULSE 71; RESP 18; TEMP 37.1; O2SAT 98
[2022-11-02 19:31] VITALS: BP 120/62; PULSE 75; RESP 18; TEMP 36.7; O2SAT 98
[2022-11-02] MEDS: Tamsulosin HCL 0.4 MG CAPSULE 0.8 MG PO (20:11)
[2022-11-02] MEDS: dilTIAZem HCL CD 240 MG CAP.ER.DEG PO (20:12)
[2022-11-02] MEDS: Warfarin Sodium 0.5 MG HALFTAB 1.5 MG PO (20:13)
[2022-11-03] VITALS: BP 103/60; PULSE 75; RESP 18; TEMP 36.7; O2SAT 93
[2022-11-03 03:02] VITALS: BP 134/68; PULSE 79; RESP 18; TEMP 36.4; O2SAT 98
[2022-11-03 07:18] LABS: INTERNATIONAL NORM RATIO 3.5 (0.9-1.1); Prothrombin Time 42.4 SEC (10.0-13.1)
[2022-11-03 07:45] VITALS: BP 127/63; PULSE 74; RESP 20; TEMP 37.2; O2SAT 96
[2022-11-03] MEDS: Lidocaine 4 % Patch ADH..PATCH 1 PATCH TRANSDERMA (08:03)
[2022-11-03] MEDS: polyethylene glycoL 3350 17 GM POWD.PACK PO (08:03)
[2022-11-03] MEDS: HYDROmorphone HCl 0.5 MG/0.5 ML SYRINGE IVPUSH (08:03)
[2022-11-03] MEDS: Acetaminophen 325 MG TABLET 975 MG PO ×2 (08:04→16:14)
[2022-11-03] MEDS: Cyanocobalamin (Vitamin B-12) 1,000 MCG TABLET 1000 MCG PO (08:05)
[2022-11-03] MEDS: Cyclobenzaprine HCl 5 MG TABLET PO ×2 (08:05→16:15)
[2022-11-03] MEDS: Atorvastatin Calcium 40 MG TABLET PO (08:05)
[2022-11-03] MEDS: Amoxicillin 500 MG CAPSULE PO (08:05)
[2022-11-03] MEDS: Cholecalciferol (Vitamin D3) 25 MCG TABLET 50 MCG PO (08:05)
[2022-11-03] MEDS: Phenytoin Sodium Extended 100 MG CAPSULE 200 MG PO (08:06)
[2022-11-03] MEDS: Zinc Sulfate 220 MG CAPSULE PO (08:06)
[2022-11-03] MEDS: Ferrous Sulfate 324 MG TABLET.DR PO (08:06)
[2022-11-03] MEDS: oxyCODONE HCl Immed Release 15 MG TABLET PO ×3 (08:06→16:15)
[2022-11-03] MEDS: 0.9 % Sodium Chloride Flush 3 ML SYRINGE IVFLUSH (08:06)
[2022-11-03] MEDS: FLUoxetine HCl 10 MG CAPSULE PO (08:06)
[2022-11-03] MEDS: Folic Acid 1 MG TABLET PO (08:06)
[2022-11-03] MEDS: Torsemide 20 MG TABLET 80 MG PO (08:29)
--- NOTE | 2022-11-03 08:34 | PM.PNNEP ---
Subjective Subjective Date of Service: 11/03/22 Interval history: seen and examined no complaints Physical Exam Vital Signs: Vital Signs: Last Vital Signs Temp 99.0 F 11/03/22 07:45 Pulse 74 11/03/22 07:45 Resp 20 11/03/22 07:45 BP 127/63 11/03/22 07:45 Pulse Ox 96 11/03/22 07:45 O2 Del Method Room Air 11/03/22 07:45 BMI result Body Mass Index 20.7 Const: General: no acute distress HEENT: Head: Yes normocephalic and Yes atraumatic Neck: Neck: Yes supple Resp: Auscultation: diminished lung sounds Cardio: Heart sounds: S1 normal heart sound present and S2 normal heart sound present GI: Palpation (GI): Soft to palpation Extrem: General: Yes no pedal edema Objective Data Labs 11/02/22 06:46 11/02/22 06:45 Labs: Laboratory Results - last 24 hr 11/03/22 06:50 PT 42.4 H INR 3.5 H Microbiology Microbiology Results: Microbiology 10/23/22 16:09 Blood - Venous Blood Culture - Final No growth after 5 days. 10/23/22 15:32 Urine clean catch - Urine whelan top Urine Culture - Final Enterococcus faecalis 10/23/22 16:08 Blood - Venous Blood Culture - Final Coag negative Staphylococcus Procedures Date of Service Date of Service: 11/03/22 Assessment & Plan Assessment and plan (1) ANUPAMA (acute kidney injury): Status: Acute (2) CKD (chronic kidney disease) stage 3, GFR 30-59 ml/min: Status: Acute Plan Scr stable but above baseline ANUPAMA multifactorial: -renal hypoperfusion -obstructive uropathy -CRS known CKD baseline Scr ~ 1.5 mg/dl known right sided heart failure REC c/w torsemide 80 mg bid follow kidney function and electrolytes Time Spent With Patient Time: Total time managing care of this patient today ____ minutes. Progress Note: Quality Stroke Does the patient have a stroke diagnosis?: No
[2022-11-03 11:16] VITALS: BP 105/51; PULSE 76; RESP 20; TEMP 36.5; O2SAT 96
--- NOTE | 2022-11-03 11:16 | MHC.CM.PN ---
Patient has been medically cleared for dc to [facility] today (he feels too weak to return home as originally planned). Patient will dc to [facility] today at 4PM, via [facility]. CM met with Patient at bedside and addressed IMM with him, providing him with the original and placing a copy on the chart. Patient is aware of and in agreement with the dc plan. TIMMY spoke with Son/Jonathan @ [phone] and also informed him of the dc plan.
--- NOTE | 2022-11-03 11:56 | P.DS_ITS ---
DS: Providers Provider Date of Service: 11/03/22 Date of admission: 10/23/22 17:39 Primary care physician: David Roman DO Consults: 10/23/22 17:25 Consult to Nephrology Routine Consulting Provider: Newton Castillo Reason for consultation: anupama on ckd DS: Diagnosis Discharge Diagnosis (1) CKD (chronic kidney disease) stage 3, GFR 30-59 ml/min: Status: Acute (2) Subtherapeutic international normalized ratio (INR): Status: Acute (3) Acute urinary retention: Status: Acute (4) Acute UTI: Status: Acute (5) Acute kidney injury superimposed on chronic kidney disease: Status: Acute (6) Low back pain: Status: Acute DS: Summary Hospital Course Hospital Course: Admission note HPI 77M PMH chronic diasotlic chf, mechanical MVR, AVR, CAD s/p CABG, bph, htn, pulmonary fibrosis presented with low back pain. patient was at [facility] 1 week ptp for chf, was discharged on 100mg bid torsemide (home dose), but tranfser papers report 80mg bid, creatinine 1.9 at discharge. patient is a poor historian, but reports ongoing low back pain radiating to suprapubic region, difficulty urinating, positive abdominal bloating, denies nsaid use, chest pain, sob, fever, or chills, in ED found to have ANUPAMA with creaitnine of 3.53, hypokalemia 2.9, urinary retention of about 500cc pvr without hydro on CT abd, ct abd did show? ILD, cardiomegaly, liver cirrhosis, persistent nephrograms. Hospital course The patient was admitted for evaluation of ANUPAMA on CKD III. beleived to be cardiorenal. Cr improved with diuresis as the patient was followed by kidney specialist. continue flomax as fontana catheter was placed for retention and removed after voiding trial. Losartan discontinued. Treated for acute on chronic right sided chf with IV bumex. weaned off O2. restart torsemide at 80mg bid po on discharge. reported significant back pain 2/2 Mild degenerative changes are present in the spine most marked at L4-L5 also with T11 sclerosis and partial collapse - though clinically this appears to be higher than patient's pain location Treated with QID Oxycodone and Tylenol. Seen by PT who recommended placement if he can not go back safely to his assisted living place. Found to have UTI as U.Cx grew Enterococcus. treat with Amoxicillin INR improved to 3.5 at day of discharge as the patient was bridged with herparin drip. To hold Warfarin today and restart tomorrow. follow INR Discontinue Losartan, Bumex and Torsemide Start Torsemide 80 mg twice daily Continue Amoxicillin for urine infection Percocet for pain management Hold Warfarin today, to restart on 11/04 Follow INR level To follow with pain clinic as outpatient for pain control plan. Time Spent with Patient Time attestation: Total time managing care of this patient today ____ minutes. Discharge coordination time: Greater than 30 minutes Quality: Safe Use of Opioids Does Pt have an Active Cancer Diagnosis on the Problem List?: No Quality: Stroke Does the patient have a stroke diagnosis?: No Physical Exam Vital Signs: Vital Signs: Last Vital Signs Temp 97.7 F 11/03/22 11:16 Pulse 76 11/03/22 11:16 Resp 20 11/03/22 11:16 BP 105/51 L 11/03/22 11:16 Pulse Ox 96 11/03/22 11:16 O2 Del Method Room Air 11/03/22 11:16 BMI result Body Mass Index 20.7 Const: Other: Constitutional : Awake, interactive, in pain on occasions Neck : Normal inspection, Supple Cardiovascular : RRR, no JVP, trace lower extremity edema Respiratory : good bilateral air entry, no crackles, wheezes or rhonchi Gastrointestinal: soft, lax, Normal bowel sounds, Non tender Skin : Warm, Dry Neurological : Alert & oriented x3, No focal deficit DS: Data Data Completed and Pending Labs on day of discharge: Laboratory Results - last 24 hr 11/03/22 06:50 PT 42.4 H INR 3.5 H Imaging Chest x-ray: Radiologist's impression: ITS Impressions Chest X-Ray 10/23/22 12:42 IMPRESSION: -Postsurgical changes. Even distribution pulmonary vascularity which may be associated with mild elevated pulmonary venous pressures. No effusion. -Increased coarsening interstitial markings right lower zone. No lobar or segmental airspace consolidation. Abdomen/Pelvis CT 10/23/22 13:12 IMPRESSION: A cause for the patient's severe back pain has not been found. Incidental note made of: 1. Interstitial lung disease with fibrosis. 2. Cardiomegaly. 3. Cirrhotic liver. 4. Cholelithiasis without cholecystitis. 5. Bilateral Bosniak class I renal cysts. 6. Degenerative changes in the spine with scoliosis and partial collapse of T11. 7. Evidence of renal dysfunction with persistent nephrograms (contrast was not administered for this study) Fleischner guidelines were followed. Abdomen/Pelvis CT 10/24/22 13:30 IMPRESSION: Colonic diverticulosis without diverticulitis. Mild constipation. Cholelithiasis without wall thickening. Emphysema with bilateral chronic scarring. Fleischner guidelines were followed. Discharge Plan Discharge Anticipated Discharge Date/Time: 11/03/22 11:39 Patient Disposition: [facility] Discharge Diagnosis: Acute kidney injury URine infection Back pain Referrals: An[facility] A[facility] [Outside] - 1 Week Roc Barrett MD [Physician] - 2 Weeks (Worsening back pain 2/2 T11 sclerosis and collapse, Marked L4-L5 degenerative changes. ) David Roman DO [Primary Care Provider] - 1 Week Discharge Medications: New amoxicillin 500 mg Capsule 500 mg PO BID Qty: 16 0RF torsemide 20 mg Tablet 80 mg PO BID Qty: 240 0RF Protocol: Hold for SBP< HOLD for SBP < : 90 lidocaine [Lidocaine Pain Relief] 4 % Adhesive Patch,Medicated 1 patch transdermal DAILY Qty: 30 0RF Protocol: Apply to: Apply to: lower back naloxone [Narcan] 4 mg/actuation [place]anan,Non-Aerosol 4 mg intranasal (ALT) ONCE PRN (Reason: Opiate Reversal) Qty: 1 0RF polyethylene glycol 3350 17 gram Powder In Packet 17 g PO DAILY Qty: 30 0RF Continued diltiazem HCl 240 mg capsule,extended release 24hr 1 cap PO BEDTIME warfarin 2.5 mg tablet 1.25 mg PO MOWEFR@1800 Rx Instructions: as directed by coumadin clinic phenytoin sodium extended 100 mg capsule 200 mg PO BID tamsulosin 0.4 mg capsule 2 cap PO BEDTIME rosuvastatin 10 mg tablet 1 tab PO DAILY fluoxetine 10 mg capsule 1 cap PO DAILY cyanocobalamin (vitamin B-12) 1,000 mcg Tablet 1,000 mcg PO DAILY warfarin 2.5 mg tablet 2.5 mg PO SUTUTHSA@1800 ferrous sulfate 325 mg (65 mg iron) Tablet 325 mg PO DAILY folic acid 800 mcg Tablet 0.8 mg PO DAILY cholecalciferol (vitamin D3) 50 mcg (2,000 unit) Capsule 50 mcg PO DAILY zinc sulfate 50 mg zinc (220 mg) Capsule 50 mg PO DAILY Changed oxycodone-acetaminophen 5-325 mg tablet 1 tab PO QID PRN (Reason: pain) Qty: 30 0RF Discontinued losartan 25 mg tablet 1 tab PO DAILY bumetanide 1 mg tablet 2 mg PO BID torsemide 100 mg Tablet 100 mg PO BID Discharge Orders: Discharge Order (Routine); Ordered 11/03/22 Ordered By: Emilee Murcia Diet: Advance to usual diet Activity on Discharge: As tolerated Stand Alone Forms: Patient Portal Discharge page Care Plan Goals: Read below Health Concerns: Read below Plan of Treatment: Read below Assessment: You were admitted to the hospital for evaluation of back pain and kidney injury. noted to be in heart failure responded well to treatment with IV diuretics. followed by nephrology team as you kidney function improved but not back to baseline yet. INR found to be low. started on heparin drip until your INR went up to therapeutic level Urine culutre grew bacteria. Treated with oral antibiotics. Discontinue Losartan, Bumex and Torsemide Start Torsemide 80 mg twice daily Continue Amoxicillin for urine infection Percocet for pain management Hold Warfarin today, to restart on 11/04 Follow INR level To follow with pain clinic as outpatient for pain control plan. please call the office for appointment.
[2022-11-03 13:36] LABS: COVID-19 Test Negative (Negative); IDNOW Serial# 16C4AD1C
[2022-11-03 15:26] VITALS: BP 115/62; PULSE 89; RESP 18; TEMP 37; O2SAT 98
--- NOTE | 2022-11-04 11:00 | P.CDIM_ITS ---
PROVIDER RESPONSE TEXT: To clarify, the appropriate diagnosis supported by the clinical indicators: Acute renal failure with suspected ATN QUERY TEXT: >>> Provider Instructions - Do not remove this line >>> PHYSICIAN'S DOCUMENTATION REQUEST Date of Query: 11/01/2022 10:07 AM EDT Patient Name: Matias Downs Admit Date: 10/23/2022 Dear Emilee Murcia, A review of the medical record indicates additional documentation may be needed. Please review below and update the documentation accordingly. Clinical Indicators: Per Nephrolology note 10/31/22: ANUPAMA multifactorial- Cr bumped up again Likely due to tubular injury as well as obstruction 10/31: BUN 42/Creat 2.13 Please clarify which of the following accurately represents the patient's renal status: <<< Provider Instructions - Do not remove this line <<< Acute renal failure with suspected ATN Acute renal failure with other pathology (medullary, papillary, or cortical necrosis) Other (explain) Clinically unable to determine (explain) >>> Contact Info Do not remove this line>>> Thank you, Elle Ray RN Use of terms such as suspected, likely, concern for, or probable (associated with a specific diagnosi s that is being evaluated, monitored, or treated as if it exists) are acceptable and can be coded in the inpatient se tting, when documented at the time of discharge. Please use your independent medical judgment in providing your response. THIS QUERY IS PART OF THE PERMANENT MEDICAL RECORD <<< Contact Info Do not remove this line <<< >>> Disclaimer - Do no remove this line>>> Extension: [phone] <<< Disclaimer - Do not remove this line<<<
== END 2022-11-03 17:26 | disposition skilled nursing facility (03) | DRG 291 ==
LOC: HO.ED 14:37 → HO.EDOVER 18:05 → HO.IMC 19:23
PROVIDERS: Internal Medicine; Physician Assistant; Admitting Provider Internal Medicine; Emergency Provider Emergency Medicine; PCP Family Medicine; Visit Provider Student in an Organized Health Care Education/Training Program
DX: I13.0 Hypertensive heart and chronic kidney disease with heart failure and stage 1 through stage 4 chronic kidney disease, or unspecified chronic kidney disease (principal); I50.33 Acute on chronic diastolic (congestive) heart failure; N17.0 Acute kidney failure with tubular necrosis; I48.20 Chronic atrial fibrillation, unspecified; I25.10 Atherosclerotic heart disease of native coronary artery without angina pectoris; N40.1 Benign prostatic hyperplasia with lower urinary tract symptoms; R33.8 Other retention of urine; J84.10 Pulmonary fibrosis, unspecified; R79.1 Abnormal coagulation profile; N14.11 Contrast-induced nephropathy; N18.30 Chronic kidney disease, stage 3 unspecified; I50.813 Acute on chronic right heart failure; E87.6 Hypokalemia; B95.2 Enterococcus as the cause of diseases classified elsewhere; M47.816 Spondylosis without myelopathy or radiculopathy, lumbar region; G40.909 Epilepsy, unspecified, not intractable, without status epilepticus; Z20.822 Contact with and (suspected) exposure to COVID-19; Z95.1 Presence of aortocoronary bypass graft; Z95.2 Presence of prosthetic heart valve; Z87.891 Personal history of nicotine dependence; Z79.01 Long term (current) use of anticoagulants; Z79.899 Other long term (current) drug therapy
CPT/HCPCS: 36415; 71045; 74176; 80048; 80076; 81001; 82607; 82746; 83605; 83735; 83880; 84300; 84443; 85025; 85027; 85610; 85730; 87040; 87086; 87088; 87147; 87186; 87205; 87635; 93306; 97161; 97162; 99285; C1758; J0696; J1100; J1170; J1643; J2270; J2405; J3010; Q9957

== ENCOUNTER 2022-12-23 10:03 | Inpatient (IN) | payer MEDICARE, MEDICAID, SELFPAY ==
[2022-12-23] VITALS (16 sets, daily range): BP systolic 100–138; BP diastolic 49–78; PULSE 66–85; RESP 12–34; TEMP 36.1–36.8; O2SAT 92–100; BMI 23.0
--- NOTE | ~2022-12-23 | CT_ITS ---
EXAMINATION: Head and cervical spine CT without IV contrast CLINICAL INFORMATION: Mental status change. COMPARISON: Previous head CT scans November 2021 TECHNIQUE: Axial images through the head and cervical spine without IV contrast. Sagittal and coronal reconstructions on the technologist workstation were performed. This CT examination was performed using dose optimization techniques as appropriate, variously including the following: *Automated exposure control *Adjustment of mA and/or kV according to patient size (this includes techniques or standardized protocols for targeted exams where dose is matched to indication/reason for exam; i.e. extremities or head) *Use of iterative reconstruction technique DLP 626+6 6 7 mg/cm FINDINGS: Head CT: There is no evidence of an extra-axial collection. There is no evidence of intra or extra-axial hemorrhage. The ventricles and extra-axial CSF spaces are prominent suggestive of generalized atrophy. There is nonspecific periventricular white matter disease. No mass, mass effect or infarct is seen. No skull fracture. 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 Visualized paranasal sinuses, mastoid air cells and middle ears are clear. Cervical spine: Exam is limited due to motion artifact. No fracture or dislocation is seen. Bone alignment is normal. There is multilevel degenerative disc disease and spondylosis seen at all levels. Prevertebral soft tissues are normal. There is bilateral carotid calcification. CT/CT cervical spine wo IV con IMPRESSION: Head CT: No acute findings. Generalized atrophy and nonspecific periventricular white matter disease. Very limited exam due to motion artifact. Multilevel degenerative changes. No fracture seen.
--- NOTE | ~2022-12-23 | CT_ITS ---
EXAMINATION: CT head/brain wo IV con CLINICAL INFORMATION: Reason for Exam epilepticus COMPARISON: Earlier same day noncontrast head CT TECHNIQUE: Contiguous axial imaging was performed from the skull base to vertex without intravenous contrast. Sagittal and coronal reformatted images were obtained. This CT examination was performed using dose optimization techniques as appropriate, variously including the following: * Automated exposure control * Adjustment of mA and/or kV according to patient size (this includes techniques or standardized protocols for targeted exams where dose is matched to indication/reason for exam; i.e. extremities or head) Use of iterative reconstruction technique DLP: 733 mGy-cm FINDINGS: Motion degraded examination. No acute osseous or soft tissue abnormality. The mastoid air cells and visualized portions of the paranasal sinuses are well aerated. There is no evidence of acute intracranial hemorrhage or territorial infarction. No abnormal mass effect or midline shift is seen. Bowman to white matter differentiation is well preserved. No extra-axial fluid collections are identified. No hydrocephalus. Proportional prominence of the ventricles and sulcal spaces is consistent with mild volume loss. Patchy periventricular and deep white matter hypoattenuation is consistent with moderate small vessel ischemic changes. Redemonstration of hyperdensity within the left globe which may represent intraocular silicone injection. Correlate with ophthalmologic history. CT/CT head/brain wo IV con IMPRESSION: Within the limitations of motion artifact, no acute intracranial abnormality.
--- NOTE | ~2022-12-23 | CT_ITS ---
EXAMINATION: Head and cervical spine CT without IV contrast CLINICAL INFORMATION: Mental status change. COMPARISON: Previous head CT scans November 2021 TECHNIQUE: Axial images through the head and cervical spine without IV contrast. Sagittal and coronal reconstructions on the technologist workstation were performed. This CT examination was performed using dose optimization techniques as appropriate, variously including the following: *Automated exposure control *Adjustment of mA and/or kV according to patient size (this includes techniques or standardized protocols for targeted exams where dose is matched to indication/reason for exam; i.e. extremities or head) *Use of iterative reconstruction technique DLP 626+6 6 7 mg/cm FINDINGS: Head CT: There is no evidence of an extra-axial collection. There is no evidence of intra or extra-axial hemorrhage. The ventricles and extra-axial CSF spaces are prominent suggestive of generalized atrophy. There is nonspecific periventricular white matter disease. No mass, mass effect or infarct is seen. No skull fracture. 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 Visualized paranasal sinuses, mastoid air cells and middle ears are clear. Cervical spine: Exam is limited due to motion artifact. No fracture or dislocation is seen. Bone alignment is normal. There is multilevel degenerative disc disease and spondylosis seen at all levels. Prevertebral soft tissues are normal. There is bilateral carotid calcification. CT/CT head/brain wo IV con IMPRESSION: Head CT: No acute findings. Generalized atrophy and nonspecific periventricular white matter disease. Very limited exam due to motion artifact. Multilevel degenerative changes. No fracture seen.
--- NOTE | ~2022-12-23 | CT_ITS ---
EXAMINATION: CT ABDOMEN AND PELVIS WITHOUT CONTRAST CLINICAL INFORMATION: Abdominal pain COMPARISON: Previous CT of the abdomen and pelvis October 2022 TECHNIQUE: Multidetector volumetric imaging was performed from the superior aspect of the liver through the pubic symphysis. Sagittal and coronal reformatted images were obtained on the technologist's workstation. This CT examination was performed using dose optimization techniques as appropriate, variously including the following: *Automated exposure control *Adjustment of mA and/or kV according to patient size (this includes techniques or standardized protocols for targeted exams where dose is matched to indication/reason for exam; i.e. extremities or head) *Use of iterative reconstruction technique DLP: 570 mGy-cm FINDINGS: LUNG BASES: See chest CT from the same day LIVER, GALLBLADDER, AND BILIARY TREE: Mild cirrhotic changes of the liver. No focal hepatic lesion or biliary ductal dilatation is present. The gallbladder is contracted. There is a gallstone. Small amount of ascites. PANCREAS: Unremarkable. SPLEEN: Unremarkable. ADRENAL GLANDS: Unremarkable. KIDNEYS AND URETERS: The kidneys are normal in size, shape, and attenuation. No hydronephrosis, hydroureter, or calculi seen. No perinephric stranding. Stable left renal cyst. No imaging follow-up recommended. BLADDER: Unremarkable. GASTROINTESTINAL TRACT: There is diverticulosis of the colon. The small and large bowel are otherwise unremarkable. The appendix is unremarkable. ABDOMINAL WALL: Postsurgical changes in both inguinal regions. LYMPH NODES: Normal. VASCULAR: Atherosclerotic disease. No aneurysm. PELVIC VISCERA: Limited due to motion artifact. OSSEOUS STRUCTURES: T11 and T12 vertebral body compression fractures. Degenerative changes of the spine and at both hip joints. CT/CT abdomen pelvis wo IV con IMPRESSION: Limited due to motion artifact in the lower pelvis. Cirrhosis and small amount of ascites. Diverticulosis. T12 and T11 vertebral body compression fractures similar to recent exam. Fleischner guidelines were followed.
--- NOTE | ~2022-12-23 | CT_ITS ---
EXAMINATION: CT CHEST WITHOUT CONTRAST CLINICAL INFORMATION: Chest pain COMPARISON: Previous chest CT April 2019, November 2021 and chest x-ray from earlier the same day TECHNIQUE: Multidetector volumetric CT imaging of the chest was done. Axial MIP volume rendering provided. Sagittal and coronal reformatted images were obtained. This CT examination was performed using dose optimization techniques as appropriate, variously including the following: *Automated exposure control *Adjustment of mA and/or kV according to patient size (this includes techniques or standardized protocols for targeted exams where dose is matched to indication/reason for exam; i.e. extremities or head) *Use of iterative reconstruction technique DLP: 295 mGy-cm FINDINGS: LUNGS: There are increased peripheral reticular markings. Is greatest at the lung bases. Differential would include interstitial lung disease and interstitial pulmonary edema. This is new from [address] and increased from [address] and may represent a combination of interstitial lung disease and interstitial pulmonary edema.. There are several small parenchymal calcifications seen at both lung bases that can be seen with interstitial lung disease. MEDIASTINUM: The heart is markedly enlarged. 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 There is no pericardial effusion. There is is moderate to severe coronary artery calcification. CABG changes. There are small mediastinal lymph nodes. No enlarged lymph nodes are seen. CORONARY ARTERY CALCIFICATION: Moderate to severe. PLEURA: Small bilateral pleural effusions. Both pleural effusions appear slightly loculated. AXILLA: No chest wall mass or enlarged axillary lymph nodes. UPPER ABDOMEN: See abdominal and pelvic CT report from the same day. OSSEOUS STRUCTURES: ORIF of multiple right rib fractures. T8 and T9 old-appearing compression fractures and more recent-appearing T11 and T12 vertebral body compression fractures similar to abdominal and pelvic CT October 31. T11 and T12 are very heterogeneous in attenuation and possible pathologic fracture should be considered. Median sternotomy. Old-appearing left anterior seventh rib fracture. CT/CT chest wo IV con IMPRESSION: Enlarged heart. Increased interstitial markings probably representing a combination of interstitial lung disease and mild interstitial pulmonary edema. Small bilateral pleural effusions appear slightly loculated, left greater than right. Multiple thoracic vertebral body compression fractures as described above. Fleischner guidelines were followed.
--- NOTE | 2022-12-23 10:13 | ECG_ITS ---
Test Reason : dyspnea Blood Pressure : / mmHG Vent. Rate : 082 BPM Atrial Rate : 000 BPM P-R Int : 000 ms QRS Dur : 078 ms QT Int : 456 ms P-R-T Axes : 000 126 -43 degrees QTc Int : 532 ms Atrial fibrillation Right axis deviation Low voltage QRS Cannot rule out Anterior infarct (cited on or before 02-MAY-2019) Abnormal ECG When compared with ECG of 02-MAY-2019 07:45, Questionable change in initial forces of Anterolateral leads Nonspecific T wave abnormality now evident in Anterior leads QT has lengthened Referred By: Generic ED Physician Electronically Signed By:Len Waterman
--- NOTE | 2022-12-23 10:30 | MHC.EDTECH ---
EKG collected and signed by
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
[2022-12-23 11:05] LABS: Glucose, Whole Blood 103 mg/dL (60-115)
[2022-12-23 11:06] LABS: MANUAL DIFF FLAG NO
--- NOTE | 2022-12-23 11:06 | PC.NURSE ---
BiPap tried, patient stating he doesnt like how it makes him feel. Discontinued at this time
[2022-12-23 11:09] LABS: Basophils Percent Auto 0.3 % (0-2); Eosinophils Absolute Auto 0.2 X10*3/uL (0.0-0.4); Eosinophils Percent Auto 1.6 % (0-4); Hematocrit 26.6 % (42.0-52.0); Hemoglobin 8.2 g/dl (14.0-18.0); Imm Gran Abs Auto 0.07 X10*3/uL (0.00-0.03); Imm Gran Pct Auto 0.8 % (0.0-0.4); Lymphocytes Absolute Auto 0.4 X10*3/uL (1.2-4.9); Lymphocytes Percent Auto 4.3 % (20-40); Mean Corpuscular HGB Conc 30.8 g/dl (31.0-36.0); Mean Corpuscular Hemoglobin 33.3 pg (27.0-33.0); Mean Corpuscular Volume 108.1 fL (80.0-98.0); Mean Platelet Volume 9.5 fL (9.4-12.4); Monocytes Absolute Auto 0.9 X10*3/uL (0.1-1.2); Monocytes Percent Auto 10.1 % (2-11); Neutrophils Absolute Auto 7.6 x10*3/uL (2.0-8.3); Neutrophils Percent Auto 82.9 % (45-73); Platelet Count 232 X10*3/uL (160-400); Red Blood Count 2.46 X10*6/uL (4.60-5.80); Red Cell Distribution Width 14.9 % (11.0-16.0); White Blood Count 9.2 X10*3/uL (4.8-10.8)
--- NOTE | 2022-12-23 11:10 | ED.GENADULT ---
HPI - General Adult General Chief complaint: Dyspnea Stated complaint: AMS/Urine retention Time Seen by Provider: 12/23/22 10:32 Source: patient, EMS and old records reviewed Mode of arrival: EMS Limitations: no limitations History of Present Illness HPI narrative: This is a 77-year-old male, with a past medical history of atrial fibrillation on Coumadin, HFpEF s/p mechanical mitral and aortic valves, seizure disorder, CKD, history of upper extremity DVT 2018, CAD status post CABG, interstitial lung disease, seizure disorder, anxiety, syncope, chronic anemia, history of multiple rib fractures status post ORIF, history of chest wall hematoma due to elevated INR requiring evacuation blood transfusion in the past, who presents emergency department for increased work of breathing, shortness of breath, and chest pressure last night. Patient is a poor historian. He denies any recent head trauma however reports that he often times bumps into things. Per EMS patient is presenting from [facility] was brought in by a nurse from the facility, her this nurse patient had altered mental status with hallucinations and talking to the air, urinary retention, and increased respiratory rate and speaking in short sentences. Patient has been seen multiple times over the last several weeks at [facility], most recent over the weekend and was discharged to [facility]. Per medical records, he was admitted for urinary retention causing ANUPAMA due to acute cystitis, and metabolic encephalopathy. MD complaint: Dyspnea, SOB Related Data Home Medications Medication Instructions Recorded Confirmed cholecalciferol (vitamin D3) 50 50 mcg PO DAILY 10/23/22 12/23/22 mcg (2,000 unit) capsule cyanocobalamin (vitamin B-12) 1,000 mcg PO DAILY 10/23/22 12/23/22 1,000 mcg tablet diltiazem HCl 240 mg 1 cap PO DAILY 10/23/22 12/23/22 capsule,extended release 24 hr ferrous sulfate 325 mg (65 mg 325 mg PO DAILY@0800 10/23/22 12/23/22 iron) tablet fluoxetine 10 mg capsule 1 cap PO DAILY 10/23/22 12/23/22 folic acid 800 mcg tablet 0.8 mg PO DAILY 10/23/22 12/23/22 phenytoin sodium extended 100 mg 400 mg PO DAILY 10/23/22 12/23/22 capsule rosuvastatin 10 mg tablet 1 tab PO DAILY 10/23/22 12/23/22 tamsulosin 0.4 mg capsule 2 cap PO BEDTIME 10/23/22 12/23/22 warfarin 2.5 mg tablet 1.25 mg PO MOWEFR@1800 10/23/22 12/23/22 warfarin 2.5 mg tablet 2.5 mg PO SUTUTHSA@1800 10/23/22 12/23/22 zinc sulfate 50 mg zinc (220 mg) 50 mg PO DAILY 10/23/22 12/23/22 capsule acetaminophen 325 mg tablet 650 mg PO Q6H PRN Fever Or Pain 12/23/22 12/23/22 budesonide-formoterol HFA 160 2 puff inhalation BID 12/23/22 12/23/22 mcg-4.5 mcg/actuation aerosol inhaler cefpodoxime 200 mg tablet 200 mg PO Q12H 12/23/22 12/23/22 losartan 25 mg tablet 25 mg PO DAILY 12/23/22 12/23/22 oxycodone-acetaminophen 5 mg-325 1 tab PO BID PRN pain 12/23/22 12/23/22 mg tablet torsemide 100 mg tablet 100 mg PO BID@0900,1200 12/23/22 12/23/22 Previous Rx's Medication Instructions Recorded polyethylene glycol 3350 17 gram 17 g PO DAILY #30 ea 11/03/22 oral powder packet Allergies Allergy/AdvReac Type Severity Reaction Status Date / Time No Known Allergies Allergy Verified 12/23/22 10:07 [No Known Allergies*] Review of Systems Review of Systems: Patient is a poor historian Yes Unobtainable due to mental status Neurologic: Reports confusion Psychiatric: Psychiatric: Reports confusion [facility] Past Medical History Attestation statement: The following information was validated with the patient. Medical History CKD (chronic kidney disease) stage 3, GFR 30-59 ml/min Low back pain Social History Social History Household Members: None Housing: Assisted Living Facility Do you presently have visiting nurse or other home services: Yes Alcohol intake: former Patient Tobacco Use Status: Former Tobacco user Tobacco use type: Cigarette Smoked in Last 30 Days: No e-Cigarette/Vaping Use: Never Used Second Hand Smoke Exposure: No Use of substances other than those prescribed or required for medical reasons: No Substance Use Type: Prescription Drugs Advance Directives: Yes Advance Directives on File: Yes Advance Directives Date on File: 10/23/22 service: No Current occupational status: retired Physical Exam ED Vital Signs: Vital Signs - 24 hr 12/23/22 10:07 12/23/22 10:32 12/23/22 11:42 Temperature 97.9 F 97.6 F Pulse Rate 75 80 Respiratory Rate 34 H 24 H 28 H Blood Pressure 115/58 L 119/65 Pulse Oximetry 92 94 Oxygen Delivery Method Room Air Room Air Oxygen Flow Rate Fraction of Inspired Oxygen 12/23/22 12:18 12/23/22 13:32 12/23/22 13:43 Temperature 98.1 F Pulse Rate 72 66 Respiratory Rate 24 H 18 20 Blood Pressure 127/72 100/49 L Pulse Oximetry 99 100 Oxygen Delivery Method High Flow Nasal Cannula Room Air High Flow Nasal Cannula Oxygen Flow Rate 50 55 Fraction of Inspired Oxygen 35 12/23/22 14:51 Temperature Pulse Rate 84 Respiratory Rate 18 Blood Pressure 111/58 L Pulse Oximetry Oxygen Delivery Method High Flow Nasal Cannula Oxygen Flow Rate 55 Fraction of Inspired Oxygen BMI result Body Mass Index 23.0 Const General: cooperative, confusion, ill appearing and tired appearing Nutritional Appearance: average body habitus Orientation/consciousness: patient oriented x3 and confusion Limitations: altered mental status [facility] Head: Yes normal to inspection, Yes normocephalic and Yes atraumatic Ears: hearing grossly normal bilaterally and TM's normal bilaterally General nose exam: Normal external nose present Face and sinus: Yes normal facial exam Mouth: Normal oral and palatal mucosa present, oropharynx normal and moist mucous membranes Throat: Yes posterior oropharynx normal Eyes Other: Left pupil irregular, dilated and nonreactive, unable to see out of left eye. Right pupil reactive. General: appearance normal, both eyes and all related structures Eyelids: Yes eyelids normal Conjunctivae: conjunctivae normal Sclerae: sclerae normal EOM: EOMs intact bilaterally Neck Neck: Yes normal visual inspection, Yes full ROM and Yes no lymphadenopathy Lymphatic: no lymphadenopathy noted Chest Chest palpation & inspection: normal inspection of the chest and normal palpation of entire chest wall Resp Other: Diminished lung sounds noted with crackles noted to bilateral bases, right > left. No wheezes. Irregular breathing, periods of apneic breathing, able to get 2-3 words in per sentence. Effort & Inspection: abnormal respiratory pattern, labored and uses accessory muscles Cardio Other: Irregularly irregular. Heart sounds: S1 normal heart sound present and S2 normal heart sound present GI Other: Abdomen is soft mildly distended, with tenderness throughout the entire abdomen without any point tenderness, with some guarding. Normoactive bowel sounds noted throughout all 4 quadrants. Inspection: Yes normal to inspection Skin Other: Large, approximately 6 x 6 cm healing ecchymotic area noted to the left anterior chest wall. Nontender, no fluctuance. General skin exam: no rashes or lesions noted Trauma: no lacerations or abrasions Wounds: no wounds Neuro General: patient oriented x3, moves all extremities and confusion Extrem Other: 2+ pitting edema noted to bilateral lower extremities extending up into the bilateral thighs. General: Yes normal to inspection Right upper extremity: normal to inspection Left upper extremity: normal to inspection Course Reevaluation(s) Reevaluation #1: No leukocytosis, macrocytic anemia H&H 8.2/26.6 which is chronic, VBG normal, electrolytes within normal limits, creatinine is 1.53 which appears to be at his baseline. BNP 970. Patient given Lasix 40 mg IV. Patient also requesting pain medication given Tylenol p.o. Viral swabs negative. Head CT with no acute findings, chest CT revealing enlarged heart with increased interstitial markings representing combination of interstitial lung disease and mild interstitial pulmonary edema. There is small bilateral pleural effusions that appear slightly loculated left greater than right. Urinalysis still pending, despite condom catheter, order will straight cath patient as it is very important to obtain urinalysis especially given recent hospitalization for this. CT abdomen revealing cirrhosis and small amount of ascites with diverticulosis and T12-T11 vertebral body compression fractures. Time: 13:53 Reevaluation #2: Bladder scan 742mL, pt has not urinated since receiving lasix. Reevaluation #3: Urinalysis shows no infection. Second troponin 15.4, from 13.7. Vital signs remained stable. Patient needs to be admitted for acute CHF exacerbation and altered mental status. Patient remains stable on high-flow nasal cannula. Discussed case with hospitalist Dr. Dick who accepts transfer of care. Time: 15:25 Medications Administered Discontinued Medications Generic Name Dose Route Start Last Admin Trade Name Freq PRN Reason Stop Dose Admin Acetaminophen 975 mg 12/23/22 12:39 12/23/22 12:48 Acetaminophen 325 Mg Tablet PO 12/23/22 12:40 975 mg ONCE ONE Administration Furosemide 40 mg 12/23/22 12:39 12/23/22 12:47 Furosemide 40 Mg/4 Ml Vial IVPUSH 12/23/22 12:40 40 mg STAT STA Administration Protocol Medical Decision Making Medical Decision Making [facility] Narrative: 77 y/o M, with a past medical history of atrial fibrillation on Coumadin, HFpEF s/p mechanical mitral and aortic valves, seizure disorder, CKD, history of upper extremity DVT 2018, CAD status post CABG, interstitial lung disease, seizure disorder, anxiety, syncope, chronic anemia, history of multiple rib fractures status post ORIF, history of chest wall hematoma due to elevated INR requiring evacuation blood transfusion in the past, who presents emergency department from [facility] after for altered mental status with hallucinations, increased respiratory rate and speaking in short sentences. On arrival, blood pressure 115/58, 92% on room air with a respiratory rate of 34 rpm, with labored breathing, use of accessory muscles. Patient complaining of chest pain and shortness of breath upon arrival. Lungs with crackles in the lower bases, left pupil nonreactive (patient reports this is chronic). Also admits to having abdominal pain upon palpation. Respiratory at bedside attempted to place BiPAP however patient refused as he states that this causes shortness of breath to worsen. Patient placed on high-flow nasal cannula. I had attempted to call nurse number left with patient records, left voicemail. Plan: Labs, EKG, UA, CT head, neck, chest, and abdomen. Obtain records from [facility] (see below for details). Differential Diagnosis Differential Diagnoses: The differential diagnosis associated with the presentation includes Urinary tract infection ICH, ACS, ANUPAMA, metabolic encephalopathy, CVA Admission/Observation Consideration of admission/observation: Escalation of care including admission/observation considered Lab Data [facility] Lab Attestation statement: I reviewed the patient's lab results. 12/23/22 11:01 12/23/22 11:01 Labs: Lab Results 12/23/22 12/23/22 12/23/22 Range/Units 10:59 11:01 11:01 WBC 9.2 (4.8-10.8) X10*3/uL RBC 2.46 L (4.60-5.80) X10*6/uL Hgb 8.2 L (14.0-18.0) g/dl Hct 26.6 L (42.0-52.0) % MCV 108.1 H (80.0-98.0) fL MCH 33.3 H (27.0-33.0) pg MCHC 30.8 L (31.0-36.0) g/dl RDW 14.9 (11.0-16.0) % Plt Count 232 (160-400) X10*3/uL MPV 9.5 (9.4-12.4) fL Immature Gran % (Auto) 0.8 H (0.0-0.4) % Neut % (Auto) 82.9 H (45-73) % Lymph % (Auto) 4.3 L (20-40) % [place] % (Auto) 10.1 (2-11) % Eos % (Auto) 1.6 (0-4) % Baso % (Auto) 0.3 (0-2) % Lymph # (Auto) 0.4 L (1.2-4.9) X10*3/uL [place] # (Auto) 0.9 (0.1-1.2) X10*3/uL Eos # (Auto) 0.2 (0.0-0.4) X10*3/uL Baso # (Auto) 0.0 (0.0-0.2) X10*3/uL Abs Immat Gran (auto) 0.07 H (0.00-0.03) X10*3/uL Absolute Neuts (auto) 7.6 (2.0-8.3) x10*3/uL Absolute Nucleated RBC 0.000 (0.0-0.012) X10*3/uL Nucleated RBC % (auto) 0.0 (0.0-0.2) /100WBC PT (10.0-13.1) SEC INR (0.9-1.1) APTT (26.0-36.4) SEC VBG pH (7.32-7.43) VBG pCO2 mmHg VBG pO2 mmHg VBG HCO3 (22-26) mmol/L VBG O2 Saturation % VBG Base Excess mmol/L Sodium 138 (135-145) mmol/L Potassium 4.2 (3.3-5.1) mmol/L Chloride 105 (96-108) mmol/L Carbon Dioxide 24 (22-29) mmol/L Anion Gap 13 (12-20) BUN 29 H (9-16) mg/dL Creatinine 1.53 H (0.5-1.4) mg/dL Estim Creat Clear Calc 41.5 Estimated GFR 44 POC Glucose 103 (60-115) mg/dL Random Glucose 85 (60-115) mg/dL Lactic Acid (0.5-2.0) mmol/L Calcium 8.5 (8.4-10.2) mg/dL Magnesium (1.6-2.6) mg/dL Total Bilirubin (0.0-1.0) mg/dL Direct Bilirubin (0.0-0.5) mg/dL AST (5-37) U/L ALT (0-40) U/L Alkaline Phosphatase (39-117) U/L Ammonia (13-55) umol/L Total Creatine Kinase (38-174) U/L Troponin I High Sens (<3.5-35.0) ng/L B-Natriuretic Peptide (<100) pg/mL Total Protein (6.5-8.0) g/dL Albumin (3.5-5.0) g/dL Lipase (8-78) U/L TSH (0.32-4.0) uIU/mL Urine Color Urine Appearance Urine pH (5.0-9.0) Ur Specific [place] (1.005-1.025) Urine Protein (Neg-Trace) mg/dL Urine Glucose (UA) (Negative) mg/dL Urine Ketones (Negative) mg/dL Urine Blood (Negative) Urine Nitrite (Negative) Ur Leukocyte Esterase (Negative) Urine RBC (0-2) /HPF Urine WBC (0-5) /HPF Ur Squamous Epith Cells (0-2) /HPF Urine Bacteria (None Seen) Hyaline Casts (0-2) /LPF Phenytoin (10.0-20.0) ug/mL Ethyl Alcohol mg/dL Influenza Type A (PCR) (Negative) Influenza Type B (PCR) (Negative) RSV RNA Qual (PCR) (Negative) SARS-CoV-2 RNA (RT-PCR) (Negative) Blood Type Antibody Screen 12/23/22 12/23/22 12/23/22 Range/Units 11:01 11:01 11:01 WBC (4.8-10.8) X10*3/uL RBC (4.60-5.80) X10*6/uL Hgb (14.0-18.0) g/dl Hct (42.0-52.0) % MCV (80.0-98.0) fL MCH (27.0-33.0) pg MCHC (31.0-36.0) g/dl RDW (11.0-16.0) % Plt Count (160-400) X10*3/uL MPV (9.4-12.4) fL Immature Gran % (Auto) (0.0-0.4) % Neut % (Auto) (45-73) % Lymph % (Auto) (20-40) % [place] % (Auto) (2-11) % Eos % (Auto) (0-4) % Baso % (Auto) (0-2) % Lymph # (Auto) (1.2-4.9) X10*3/uL [place] # (Auto) (0.1-1.2) X10*3/uL Eos # (Auto) (0.0-0.4) X10*3/uL Baso # (Auto) (0.0-0.2) X10*3/uL Abs Immat Gran (auto) (0.00-0.03) X10*3/uL Absolute Neuts (auto) (2.0-8.3) x10*3/uL Absolute Nucleated RBC (0.0-0.012) X10*3/uL Nucleated RBC % (auto) (0.0-0.2) /100WBC PT 59.9 H (10.0-13.1) SEC INR 4.9 H D (0.9-1.1) APTT 42.3 H (26.0-36.4) SEC VBG pH (7.32-7.43) VBG pCO2 mmHg VBG pO2 mmHg VBG HCO3 (22-26) mmol/L VBG O2 Saturation % VBG Base Excess mmol/L Sodium (135-145) mmol/L Potassium (3.3-5.1) mmol/L Chloride (96-108) mmol/L Carbon Dioxide (22-29) mmol/L Anion Gap (12-20) BUN (9-16) mg/dL Creatinine (0.5-1.4) mg/dL Estim Creat Clear Calc Estimated GFR POC Glucose (60-115) mg/dL Random Glucose (60-115) mg/dL Lactic Acid (0.5-2.0) mmol/L Calcium (8.4-10.2) mg/dL Magnesium 2.4 (1.6-2.6) mg/dL Total Bilirubin 0.5 (0.0-1.0) mg/dL Direct Bilirubin 0.2 (0.0-0.5) mg/dL AST 45 H (5-37) U/L ALT 35 (0-40) U/L Alkaline Phosphatase 332 H (39-117) U/L Ammonia (13-55) umol/L Total Creatine Kinase 94 (38-174) U/L Troponin I High Sens 13.7 (<3.5-35.0) ng/L B-Natriuretic Peptide (<100) pg/mL Total Protein 6.7 (6.5-8.0) g/dL Albumin 3.6 (3.5-5.0) g/dL Lipase 33 (8-78) U/L TSH (0.32-4.0) uIU/mL Urine Color Urine Appearance Urine pH (5.0-9.0) Ur Specific [place] (1.005-1.025) Urine Protein (Neg-Trace) mg/dL Urine Glucose (UA) (Negative) mg/dL Urine Ketones (Negative) mg/dL Urine Blood (Negative) Urine Nitrite (Negative) Ur Leukocyte Esterase (Negative) Urine RBC (0-2) /HPF Urine WBC (0-5) /HPF Ur Squamous Epith Cells (0-2) /HPF Urine Bacteria (None Seen) Hyaline Casts (0-2) /LPF Phenytoin (10.0-20.0) ug/mL Ethyl Alcohol < 10 mg/dL Influenza Type A (PCR) (Negative) Influenza Type B (PCR) (Negative) RSV RNA Qual (PCR) (Negative) SARS-CoV-2 RNA (RT-PCR) (Negative) Blood Type Antibody Screen 12/23/22 12/23/22 12/23/22 Range/Units 11:01 11:01 12:12 WBC (4.8-10.8) X10*3/uL RBC (4.60-5.80) X10*6/uL Hgb (14.0-18.0) g/dl Hct (42.0-52.0) % MCV (80.0-98.0) fL MCH (27.0-33.0) pg MCHC (31.0-36.0) g/dl RDW (11.0-16.0) % Plt Count (160-400) X10*3/uL MPV (9.4-12.4) fL Immature Gran % (Auto) (0.0-0.4) % Neut % (Auto) (45-73) % Lymph % (Auto) (20-40) % [place] % (Auto) (2-11) % Eos % (Auto) (0-4) % Baso % (Auto) (0-2) % Lymph # (Auto) (1.2-4.9) X10*3/uL [place] # (Auto) (0.1-1.2) X10*3/uL Eos # (Auto) (0.0-0.4) X10*3/uL Baso # (Auto) (0.0-0.2) X10*3/uL Abs Immat Gran (auto) (0.00-0.03) X10*3/uL Absolute Neuts (auto) (2.0-8.3) x10*3/uL Absolute Nucleated RBC (0.0-0.012) X10*3/uL Nucleated RBC % (auto) (0.0-0.2) /100WBC PT (10.0-13.1) SEC INR (0.9-1.1) APTT (26.0-36.4) SEC VBG pH (7.32-7.43) VBG pCO2 mmHg VBG pO2 mmHg VBG HCO3 (22-26) mmol/L VBG O2 Saturation % VBG Base Excess mmol/L Sodium (135-145) mmol/L Potassium (3.3-5.1) mmol/L Chloride (96-108) mmol/L Carbon Dioxide (22-29) mmol/L Anion Gap (12-20) BUN (9-16) mg/dL Creatinine (0.5-1.4) mg/dL Estim Creat Clear Calc Estimated GFR POC Glucose (60-115) mg/dL Random Glucose (60-115) mg/dL Lactic Acid 1.5 (0.5-2.0) mmol/L Calcium (8.4-10.2) mg/dL Magnesium (1.6-2.6) mg/dL Total Bilirubin (0.0-1.0) mg/dL Direct Bilirubin (0.0-0.5) mg/dL AST (5-37) U/L ALT (0-40) U/L Alkaline Phosphatase (39-117) U/L Ammonia (13-55) umol/L Total Creatine Kinase (38-174) U/L Troponin I High Sens (<3.5-35.0) ng/L B-Natriuretic Peptide 970 H (<100) pg/mL Total Protein (6.5-8.0) g/dL Albumin (3.5-5.0) g/dL Lipase (8-78) U/L TSH 1.88 (0.32-4.0) uIU/mL Urine Color Urine Appearance Urine pH (5.0-9.0) Ur Specific [place] (1.005-1.025) Urine Protein (Neg-Trace) mg/dL Urine Glucose (UA) (Negative) mg/dL Urine Ketones (Negative) mg/dL Urine Blood (Negative) Urine Nitrite (Negative) Ur Leukocyte Esterase (Negative) Urine RBC (0-2) /HPF Urine WBC (0-5) /HPF Ur Squamous Epith Cells (0-2) /HPF Urine Bacteria (None Seen) Hyaline Casts (0-2) /LPF Phenytoin (10.0-20.0) ug/mL Ethyl Alcohol mg/dL Influenza Type A (PCR) (Negative) Influenza Type B (PCR) (Negative) RSV RNA Qual (PCR) (Negative) SARS-CoV-2 RNA (RT-PCR) (Negative) Blood Type Antibody Screen 12/23/22 12/23/22 12/23/22 Range/Units 12:12 12:12 12:13 WBC (4.8-10.8) X10*3/uL RBC (4.60-5.80) X10*6/uL Hgb (14.0-18.0) g/dl Hct (42.0-52.0) % MCV (80.0-98.0) fL MCH (27.0-33.0) pg MCHC (31.0-36.0) g/dl RDW (11.0-16.0) % Plt Count (160-400) X10*3/uL MPV (9.4-12.4) fL Immature Gran % (Auto) (0.0-0.4) % Neut % (Auto) (45-73) % Lymph % (Auto) (20-40) % [place] % (Auto) (2-11) % Eos % (Auto) (0-4) % Baso % (Auto) (0-2) % Lymph # (Auto) (1.2-4.9) X10*3/uL [place] # (Auto) (0.1-1.2) X10*3/uL Eos # (Auto) (0.0-0.4) X10*3/uL Baso # (Auto) (0.0-0.2) X10*3/uL Abs Immat Gran (auto) (0.00-0.03) X10*3/uL Absolute Neuts (auto) (2.0-8.3) x10*3/uL Absolute Nucleated RBC (0.0-0.012) X10*3/uL Nucleated RBC % (auto) (0.0-0.2) /100WBC PT (10.0-13.1) SEC INR (0.9-1.1) APTT (26.0-36.4) SEC VBG pH (7.32-7.43) VBG pCO2 mmHg VBG pO2 mmHg VBG HCO3 (22-26) mmol/L VBG O2 Saturation % VBG Base Excess mmol/L Sodium (135-145) mmol/L Potassium (3.3-5.1) mmol/L Chloride (96-108) mmol/L Carbon Dioxide (22-29) mmol/L Anion Gap (12-20) BUN (9-16) mg/dL Creatinine (0.5-1.4) mg/dL Estim Creat Clear Calc Estimated GFR POC Glucose (60-115) mg/dL Random Glucose (60-115) mg/dL Lactic Acid (0.5-2.0) mmol/L Calcium (8.4-10.2) mg/dL Magnesium (1.6-2.6) mg/dL Total Bilirubin (0.0-1.0) mg/dL Direct Bilirubin (0.0-0.5) mg/dL AST (5-37) U/L ALT (0-40) U/L Alkaline Phosphatase (39-117) U/L Ammonia 19 (13-55) umol/L Total Creatine Kinase (38-174) U/L Troponin I High Sens (<3.5-35.0) ng/L B-Natriuretic Peptide (<100) pg/mL Total Protein (6.5-8.0) g/dL Albumin (3.5-5.0) g/dL Lipase (8-78) U/L TSH (0.32-4.0) uIU/mL Urine Color Urine Appearance Urine pH (5.0-9.0) Ur Specific [place] (1.005-1.025) Urine Protein (Neg-Trace) mg/dL Urine Glucose (UA) (Negative) mg/dL Urine Ketones (Negative) mg/dL Urine Blood (Negative) Urine Nitrite (Negative) Ur Leukocyte Esterase (Negative) Urine RBC (0-2) /HPF Urine WBC (0-5) /HPF Ur Squamous Epith Cells (0-2) /HPF Urine Bacteria (None Seen) Hyaline Casts (0-2) /LPF Phenytoin 10.2 (10.0-20.0) ug/mL Ethyl Alcohol mg/dL Influenza Type A (PCR) (Negative) Influenza Type B (PCR) (Negative) RSV RNA Qual (PCR) (Negative) SARS-CoV-2 RNA (RT-PCR) (Negative) Blood Type O Positive Antibody Screen NEGATIVE 12/23/22 12/23/22 12/23/22 Range/Units 12:15 12:20 13:49 WBC (4.8-10.8) X10*3/uL RBC (4.60-5.80) X10*6/uL Hgb (14.0-18.0) g/dl Hct (42.0-52.0) % MCV (80.0-98.0) fL MCH (27.0-33.0) pg MCHC (31.0-36.0) g/dl RDW (11.0-16.0) % Plt Count (160-400) X10*3/uL MPV (9.4-12.4) fL Immature Gran % (Auto) (0.0-0.4) % Neut % (Auto) (45-73) % Lymph % (Auto) (20-40) % [place] % (Auto) (2-11) % Eos % (Auto) (0-4) % Baso % (Auto) (0-2) % Lymph # (Auto) (1.2-4.9) X10*3/uL [place] # (Auto) (0.1-1.2) X10*3/uL Eos # (Auto) (0.0-0.4) X10*3/uL Baso # (Auto) (0.0-0.2) X10*3/uL Abs Immat Gran (auto) (0.00-0.03) X10*3/uL Absolute Neuts (auto) (2.0-8.3) x10*3/uL Absolute Nucleated RBC (0.0-0.012) X10*3/uL Nucleated RBC % (auto) (0.0-0.2) /100WBC PT (10.0-13.1) SEC INR (0.9-1.1) APTT (26.0-36.4) SEC VBG pH 7.33 (7.32-7.43) VBG pCO2 46 mmHg VBG pO2 46 mmHg VBG HCO3 25 (22-26) mmol/L VBG O2 Saturation 71.0 % VBG Base Excess -0.6 mmol/L Sodium (135-145) mmol/L Potassium (3.3-5.1) mmol/L Chloride (96-108) mmol/L Carbon Dioxide (22-29) mmol/L Anion Gap (12-20) BUN (9-16) mg/dL Creatinine (0.5-1.4) mg/dL Estim Creat Clear Calc Estimated GFR POC Glucose (60-115) mg/dL Random Glucose (60-115) mg/dL Lactic Acid (0.5-2.0) mmol/L Calcium (8.4-10.2) mg/dL Magnesium (1.6-2.6) mg/dL Total Bilirubin (0.0-1.0) mg/dL Direct Bilirubin (0.0-0.5) mg/dL AST (5-37) U/L ALT (0-40) U/L Alkaline Phosphatase (39-117) U/L Ammonia (13-55) umol/L Total Creatine Kinase (38-174) U/L Troponin I High Sens 15.4 (<3.5-35.0) ng/L B-Natriuretic Peptide (<100) pg/mL Total Protein (6.5-8.0) g/dL Albumin (3.5-5.0) g/dL Lipase (8-78) U/L TSH (0.32-4.0) uIU/mL Urine Color Urine Appearance Urine pH (5.0-9.0) Ur Specific [place] (1.005-1.025) Urine Protein (Neg-Trace) mg/dL Urine Glucose (UA) (Negative) mg/dL Urine Ketones (Negative) mg/dL Urine Blood (Negative) Urine Nitrite (Negative) Ur Leukocyte Esterase (Negative) Urine RBC (0-2) /HPF Urine WBC (0-5) /HPF Ur Squamous Epith Cells (0-2) /HPF Urine Bacteria (None Seen) Hyaline Casts (0-2) /LPF Phenytoin (10.0-20.0) ug/mL Ethyl Alcohol mg/dL Influenza Type A (PCR) NEGATIVE (Negative) Influenza Type B (PCR) NEGATIVE (Negative) RSV RNA Qual (PCR) NEGATIVE (Negative) SARS-CoV-2 RNA (RT-PCR) NEGATIVE (Negative) Blood Type Antibody Screen 12/23/22 Range/Units 14:30 WBC (4.8-10.8) X10*3/uL RBC (4.60-5.80) X10*6/uL Hgb (14.0-18.0) g/dl Hct (42.0-52.0) % MCV (80.0-98.0) fL MCH (27.0-33.0) pg MCHC (31.0-36.0) g/dl RDW (11.0-16.0) % Plt Count (160-400) X10*3/uL MPV (9.4-12.4) fL Immature Gran % (Auto) (0.0-0.4) % Neut % (Auto) (45-73) % Lymph % (Auto) (20-40) % [place] % (Auto) (2-11) % Eos % (Auto) (0-4) % Baso % (Auto) (0-2) % Lymph # (Auto) (1.2-4.9) X10*3/uL [place] # (Auto) (0.1-1.2) X10*3/uL Eos # (Auto) (0.0-0.4) X10*3/uL Baso # (Auto) (0.0-0.2) X10*3/uL Abs Immat Gran (auto) (0.00-0.03) X10*3/uL Absolute Neuts (auto) (2.0-8.3) x10*3/uL Absolute Nucleated RBC (0.0-0.012) X10*3/uL Nucleated RBC % (auto) (0.0-0.2) /100WBC PT (10.0-13.1) SEC INR (0.9-1.1) APTT (26.0-36.4) SEC VBG pH (7.32-7.43) VBG pCO2 mmHg VBG pO2 mmHg VBG HCO3 (22-26) mmol/L VBG O2 Saturation % VBG Base Excess mmol/L Sodium (135-145) mmol/L Potassium (3.3-5.1) mmol/L Chloride (96-108) mmol/L Carbon Dioxide (22-29) mmol/L Anion Gap (12-20) BUN (9-16) mg/dL Creatinine (0.5-1.4) mg/dL Estim Creat Clear Calc Estimated GFR POC Glucose (60-115) mg/dL Random Glucose (60-115) mg/dL Lactic Acid (0.5-2.0) mmol/L Calcium (8.4-10.2) mg/dL Magnesium (1.6-2.6) mg/dL Total Bilirubin (0.0-1.0) mg/dL Direct Bilirubin (0.0-0.5) mg/dL AST (5-37) U/L ALT (0-40) U/L Alkaline Phosphatase (39-117) U/L Ammonia (13-55) umol/L Total Creatine Kinase (38-174) U/L Troponin I High Sens (<3.5-35.0) ng/L B-Natriuretic Peptide (<100) pg/mL Total Protein (6.5-8.0) g/dL Albumin (3.5-5.0) g/dL Lipase (8-78) U/L TSH (0.32-4.0) uIU/mL Urine Color Yellow Urine Appearance Clear Urine pH 5.5 (5.0-9.0) Ur Specific [place] 1.015 (1.005-1.025) Urine Protein 100 (2+) H (Neg-Trace) mg/dL Urine Glucose (UA) Negative (Negative) mg/dL Urine Ketones Negative (Negative) mg/dL Urine Blood Negative (Negative) Urine Nitrite Negative (Negative) Ur Leukocyte Esterase Negative (Negative) Urine RBC 0-2 (0-2) /HPF Urine WBC 0-5 (0-5) /HPF Ur Squamous Epith Cells 0-2 (0-2) /HPF Urine Bacteria None Seen (None Seen) Hyaline Casts 3-5 (0-2) /LPF Phenytoin (10.0-20.0) ug/mL Ethyl Alcohol mg/dL Influenza Type A (PCR) (Negative) Influenza Type B (PCR) (Negative) RSV RNA Qual (PCR) (Negative) SARS-CoV-2 RNA (RT-PCR) (Negative) Blood Type Antibody Screen Independent Interpretation I performed an independent interpretation of an: EKG Interpretation: EKG atrial fibrillation at 82BPM, QTC 532. low voltage QRS complexes. Radiology Impression Discussion of test interpretation with radiology: I have reviewed the radiologist's reading. Radiologist Impression: EXAMINATION: Head and cervical spine CT without IV contrast CLINICAL INFORMATION: Mental status change.? COMPARISON: Previous head CT scans November 2021 TECHNIQUE: Axial images through the head and cervical spine without IV contrast. Sagittal and coronal reconstructions on the technologist workstation were performed. This CT examination was performed using dose optimization techniques as appropriate, variously including the following: *Automated exposure control *Adjustment of mA and/or kV according to patient size (this includes techniques or standardized protocols for targeted exams where dose is matched to indication/reason for exam; i.e. extremities or head) *Use of iterative reconstruction technique DLP 626+6 6 7 mg/cm? FINDINGS: Head CT:? There is no evidence of an extra-axial collection. There is no evidence of intra or extra-axial hemorrhage. The ventricles and extra-axial CSF spaces are prominent suggestive of generalized atrophy. There is nonspecific periventricular white matter disease. No mass, mass effect or infarct is seen. No skull fracture. 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 Visualized paranasal sinuses, mastoid air cells and middle ears are clear. Cervical spine: Exam is limited due to motion artifact. No fracture or dislocation is seen. Bone alignment is normal. There is multilevel degenerative disc disease and spondylosis seen at all levels. Prevertebral soft tissues are normal. There is bilateral carotid calcification. CT/CT head/brain wo IV con IMPRESSION: Head CT: No acute findings. Generalized atrophy and nonspecific periventricular white matter disease. ? Very limited exam due to motion artifact. Multilevel degenerative changes. No fracture seen. Dictated By: Rosalba Pate MD EXAMINATION: CT CHEST WITHOUT CONTRAST CLINICAL INFORMATION: Chest pain? COMPARISON: Previous chest CT April 2019, November 2021 and chest x-ray from earlier the same day TECHNIQUE: Multidetector volumetric CT imaging of the chest was done. Axial MIP volume rendering provided. Sagittal and coronal reformatted images were obtained.? This CT examination was performed using dose optimization techniques as appropriate, variously including the following: *Automated exposure control *Adjustment of mA and/or kV according to patient size (this includes techniques or standardized protocols for targeted exams where dose is matched to indication/reason for exam; i.e. extremities or head) *Use of iterative reconstruction technique DLP: 295 mGy-cm FINDINGS: LUNGS: There are increased peripheral reticular markings. Is greatest at the lung bases. Differential would include interstitial lung disease and interstitial pulmonary edema. This is new from [address] and increased from [address] and may represent a combination of interstitial lung disease and interstitial pulmonary edema.. There? are several small parenchymal calcifications seen at both lung bases that can be seen with interstitial lung disease. MEDIASTINUM: The heart is markedly enlarged. 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 There is no pericardial effusion. There is is moderate to severe coronary artery calcification. CABG changes. There are small mediastinal lymph nodes. No enlarged lymph nodes are seen. CORONARY ARTERY CALCIFICATION: Moderate to severe. PLEURA: Small bilateral pleural effusions. Both pleural effusions appear slightly loculated. AXILLA: No chest wall mass or enlarged axillary lymph nodes.? UPPER ABDOMEN: See abdominal and pelvic CT report from the same day.? OSSEOUS STRUCTURES: ORIF of multiple right rib fractures. T8 and T9 old-appearing compression fractures and more recent-appearing T11 and T12 vertebral body compression fractures similar to abdominal and pelvic CT October 31. T11 and T12 are very heterogeneous in attenuation and possible pathologic fracture should be considered. Median sternotomy. Old-appearing left anterior seventh rib fracture. CT/CT chest wo IV con IMPRESSION: Enlarged heart. Increased interstitial markings probably representing a combination of interstitial lung disease and mild interstitial pulmonary edema. Small bilateral pleural effusions appear slightly loculated, left greater than right. Multiple thoracic vertebral body compression fractures as described above. ? Fleischner guidelines were followed. Dictated By: Rosalba Pate MD EXAMINATION: Head and cervical spine CT without IV contrast CLINICAL INFORMATION: Mental status change.? COMPARISON: Previous head CT scans November 2021 TECHNIQUE: Axial images through the head and cervical spine without IV contrast. Sagittal and coronal reconstructions on the technologist workstation were performed. This CT examination was performed using dose optimization techniques as appropriate, variously including the following: *Automated exposure control *Adjustment of mA and/or kV according to patient size (this includes techniques or standardized protocols for targeted exams where dose is matched to indication/reason for exam; i.e. extremities or head) *Use of iterative reconstruction technique DLP 626+6 6 7 mg/cm? FINDINGS: Head CT:? There is no evidence of an extra-axial collection. There is no evidence of intra or extra-axial hemorrhage. The ventricles and extra-axial CSF spaces are prominent suggestive of generalized atrophy. There is nonspecific periventricular white matter disease. No mass, mass effect or infarct is seen. No skull fracture. 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 Visualized paranasal sinuses, mastoid air cells and middle ears are clear. Cervical spine: Exam is limited due to motion artifact. No fracture or dislocation is seen. Bone alignment is normal. There is multilevel degenerative disc disease and spondylosis seen at all levels. Prevertebral soft tissues are normal. There is bilateral carotid calcification. CT/CT cervical spine wo IV con IMPRESSION: Head CT: No acute findings. Generalized atrophy and nonspecific periventricular white matter disease. ? Very limited exam due to motion artifact. Multilevel degenerative changes. No fracture seen. Dictated By: Rosalba Pate MD Independent Historian Clinical information obtained from an independent historian. History obtained from or confirmed by: EMS External Record Review External record reviewed: Inpatient record, Office record, Outpatient record, Prior outpatient labs, Prior outpatient radiology, Primary care record and Outside ED record Extensive medical chart review from recent hospitalization at [facility] from December 17, 2022 to December 20, 2022. Admitted for altered mental status and urinary retention, concern for UTI. He was treated with ceftriaxone until cultures resulted growing nearly pansensitive Klebsiella resistant only to ampicillin. He had an renal ultrasound which showed no hydronephrosis, creatinine in 1.7 upon ER arrival, improved to 1.3. Patient was discharged on cefpodoxime 200 mg b.i.d. that he should have been taking until December 24. Also diagnosed with metabolic encephalopathy due to acute cystitis, urinary retention and ANUPAMA. There patient by radiology reporting abnormality to the left orbit, per this record the provider was told by the patient that this is not new. Previous notes from November 2021 reveals he had a lateral canthotomy after left orbital injury and fracture after falling and hitting his head this abnormality was seen on prior CTs as well. Chronic Conditions Patient?s care impacted by: Other atrial fibrillation on Coumadin, HFpEF s/p mechanical mitral and aortic valves, seizure disorder, CKD, history of upper extremity DVT 2018, CAD status post CABG, interstitial lung disease, seizure disorder, anxiety, syncope, chronic anemia, history of multiple rib fractures status post ORIF, history of chest wall hematoma due to elevated INR requiring evacuation blood transfusion Critical Care Time Critical Care Time Critical Care Time: Yes Total Critical Care Time: 60 Attestation: I have personally provided critical care time exclusive of time spent on separately billable procedures. Time includes review of lab data, radiology results, discussion with consultants, and monitoring for potential decompensation. Intervention performed as documented. Discharge Plan Discharge Clinical Impression: CHF (congestive heart failure), Altered mental status Patient Disposition: Admitted As Inpatient
[2022-12-23 11:19] LABS: INTERNATIONAL NORM RATIO 4.9 (0.9-1.1); Prothrombin Time 59.9 SEC (10.0-13.1)
[2022-12-23 11:22] LABS: Partial Thromboplastin Time 42.3 SEC (26.0-36.4)
[2022-12-23 11:31] LABS: Lactic Acid 1.5 mmol/L (0.5-2.0)
[2022-12-23 11:33] LABS: Anion Gap 13 (12-20); Blood Urea Nitrogen 29 mg/dL (9-16); Calcium 8.5 mg/dL (8.4-10.2); Carbon Dioxide 24 mmol/L (22-29); Chloride 105 mmol/L (96-108); Creatinine Clr Calc Pharmacy 41.5; Estimated Glomerular Filt Rate 44; Glucose Random 85 mg/dL (60-115); Potassium 4.2 mmol/L (3.3-5.1); Sodium 138 mmol/L (135-145)
[2022-12-23 11:36] LABS: B Type Natriuretic Peptide 970 pg/mL (<100)
[2022-12-23 11:42] LABS: Troponin-I High Sensitivity 13.7 ng/L (<3.5-35.0)
[2022-12-23 11:49] LABS: Alanine Aminotransferase 35 U/L (0-40); Albumin Level 3.6 g/dL (3.5-5.0); Alkaline Phosphatase 332 U/L (39-117); Aspartate Amino Transferase 45 U/L (5-37); Bilirubin Direct 0.2 mg/dL (0.0-0.5); Bilirubin Total 0.5 mg/dL (0.0-1.0); Ethanol < 10 mg/dL; Lipase 33 U/L (8-78); Magnesium 2.4 mg/dL (1.6-2.6); Total Protein 6.7 g/dL (6.5-8.0)
--- NOTE | 2022-12-23 11:52 | PC.RT ---
attempetd to place pt onbipap. pt refused it within placing on him in 10 seconds. He did not want it. Therefore pt wa placed on HFNC at 55L and 32%. Lamont well. Transported to CT on HFNC without incident.
[2022-12-23 12:28] LABS: VBG Base Excess -0.6 mmol/L; VBG HCO3 25 mmol/L (22-26); VBG pCO2 46 mmHg; VBG pH 7.33 (7.32-7.43); VBG pO2 46 mmHg
[2022-12-23 12:28] LABS: Venous Blood Gas Refer to POC result
[2022-12-23 12:33] LABS: Ammonia 19 umol/L (13-55)
[2022-12-23 12:38] LABS: Phenytoin Dilantin 10.2 ug/mL (10.0-20.0)
[2022-12-23] MEDS: Furosemide 40 MG/4 ML VIAL IVPUSH (12:47)
[2022-12-23] MEDS: Acetaminophen 325 MG TABLET 975 MG PO (12:48)
[2022-12-23 13:02] LABS: TSH reflex Free T4 1.88 uIU/mL (0.32-4.0)
[2022-12-23 13:12] LABS: Influenza A PCR NEGATIVE (Negative); Influenza B PCR NEGATIVE (Negative); Resp Syncy Virus RNA Qual PCR NEGATIVE (Negative); SARS COV2 PCR INHOUSE NEGATIVE (Negative)
--- NOTE | 2022-12-23 13:14 | PHA.MEDREC ---
Pharmacy Consult ? Medication Reconciliation Pharmacy has completed the medication reconciliation.Med rec complete using list from Mateusz Mayorga dated 12/20/22
--- NOTE | 2022-12-23 13:15 | PC.NURSE ---
Pt removed BiPap mask twice. mask reapplied. pt reminded of importance of keeping on his mask. will pass information to primary nurse.
[2022-12-23 14:25] LABS: Troponin-I High Sensitivity 15.4 ng/L (<3.5-35.0)
[2022-12-23 14:43] LABS: Appearance Urine Clear; Color Urine Yellow; Glucose Urine UA Negative (Negative); Leukocyte Esterase Urine Negative (Negative); Nitrite Urine Negative (Negative); PH 5.5 (5.0-9.0); Specific Gravity - Urine 1.015 (1.005-1.025); UMIC TRIGGER UACC YES; Urine Blood Negative (Negative); Urine Ketones Negative (Negative); Urine Protein 100 (2+) mg/dL (Neg-Trace)
[2022-12-23 14:45] LABS: Bacteria Urine None Seen (None Seen); RBC Urine 0-2 /HPF (0-2); Squamous Epithelial Cell Urine 0-2 /HPF (0-2); WBC Urine 0-5 /HPF (0-5)
--- NOTE | 2022-12-23 14:49 | PC.NURSE ---
Continues on highflow sating 100%. Kauffman cath placed with over 600mls of clear yellow urine draining.
--- NOTE | 2022-12-23 15:50 | PM.EVENT ---
Event Note Date of Service: 12/23/22 Event Note: Addendum to history and physical by the advanced practice provider, BETTYE Lazaro I interviewed and examined the patient. I discussed their presentation and management with the JOANIE. I reviewed the history and physical and agree with the documentation, with the following additions and corrections: 77yo M with pAF, mechanical aortic and mitral valves on warfarin, CAD s/p CABG, HFpEF, ILD, CKD3, seizure disorder, recent admission to 12/17-12/20/22 for ANUPAMA due to Klebsiella UTI presenting with hallucinations and dyspnea. Presented in respiratory distress with tachypnea but not really hypoxic or hypercarbic. Did not feel good on BiPAP and now on HFNC. CT with interstitial edema + ILD. Inspiratory crackles in base, 2+ pitting edema bilatearl extremities. BNP 970. He was given 40 mg of IV furosemide and has put out about 500 mL of urine. He was reportedly awake and alert but then when I went to see him he had just had bradycardia down to 17 and then became acutely altered with intermittent, migratory myoclonic jerking movements of legs, arms, and face. He is protecting his airway and is not hypoxic or hypercarbic, just on HFNC at 55 Lpm and fiO2 32% mostly for the nasal CPAP effect. HR has recovered to the 70s-80s. CT head no acute findings. Phenytoin level pending. Normal glucose and he is not febrile. He was given 1g IV Keppra and 2mg of IV Ativan. I discussed his case with neurologist plant operations manager, Dr Ruiz, and he agreed with the management and advised holding off on phenytoin for now Plan admit to [facility]. By problem: # breakthrough seizures - seizure precautions, IV Keppra, EEG in AM, Neurology consult # CHF exacerbation - IV furosemide, Cardiology consultation # ILD - Pulm consultation, wean HFNC as tolerated # UTI - ceftriaxone He is DNR/DNI. Time Spent With Patient Time: Total time managing care of this patient today ____ minutes.
--- NOTE | 2022-12-23 16:12 | PM.IMHP ---
History of Present Illness Date of Service: 12/23/22 Attending physician on admission: Chu Decker Chief Complaint: shortness of breath 77 year old male with history of Seizure disorder, coronary artery disease s/p CABG, paroxysmal atrial fibrillation anticoagulated with Coumadin, left eye blindness, hypertension, COPD, interstitial lung disease, pulmonary hypertension, HFpEF, BPH with LUTS, h/o UE DVT, and CKD stage 3 presented to the ED from [facility] where he resides in assisted living facility for evaluation of shortness of breath and altered mental status with hallucinations. Patient states that he is chronically short of breath but reports worsening of symptoms this morning. He does endorse orthopnea and dyspnea on exertion and dyspnea with minimal activity such as shaving. He has also been wheezing. He is aware of his confusion this morning and states he was experiencing auditory hallucinations but was aware these were not real. He has never experienced similar symptoms in the past. He was recently discharged from [facility] with admission from 12/18/2011 for UTI with urinary retention and metabolic encephalopathy. He has been compliant with cefpodoxime which he was discharged on and has 3 remaining doses. He denies any fevers, chills, abd pain, nausea, vomiting, diarrhea, constipation, melena, hematochezia, palpitations, lightheadedness, or chest pain. On arrival, patient was noted to be tachypneic at 34 with oximetry 92% on room air. All other vital signs stable. There is no leukocytosis. H/H 8.2/26.6% with MCV 108.1. PTT 59.9, INR 4.9, PTT 42.3. ABG pH 7.38, pCO2 44, PO2 142, bicarb 26. Creatinine 1.53, consistent with baseline, BUN 29. Electrolyte levels normal. Troponins within normal limits. BNP 970. Urinalysis unremarkable. Phenytoin level 10.4. Head CT without any acute intracranial abnormality. Cervical spine CT negative for any fracture subluxation. CT abdomen/pelvis showing cirrhosis and small amount of ascites but no acute intra-abdominal abnormality. There were compression fractures at [id number] similar to prior exams. Chest CT shows cardiomegaly. There is also entry. Interstitial markings probably representing combination of interstitial lung disease and mild interstitial pulmonary edema. There is also small bilateral pleural effusions that appear slightly loculated, left greater than right. Attempted to treat patient on bipap but he felt this worsened his sob, and has been maintained on high flow with improvements in work of breathing. In the ED, given 40 mg IV Lasix. On re-exam with Dr. Decker, patient developed myoclonic jerking with HR down to 17. Given 2mg IV lorazepam and loaded with keppra 1000mg. Pacer pads placed. [facility] Medical History (Updated 12/23/22 @ 17:32 by BETTYE Hernández) (HFpEF) heart failure with preserved ejection fraction BPH w urinary obs/LUTS CAD (coronary artery disease) Chest wall hematoma Chronic anticoagulation CKD (chronic kidney disease) stage 3, GFR 30-59 ml/min COPD (chronic obstructive pulmonary disease) HTN (hypertension) Interstitial lung disease Low back pain Paroxysmal atrial fibrillation Pulmonary hypertension Seizure disorder Vitamin B12 deficiency Vitamin D deficiency Surgical History (Updated 12/23/22 @ 17:04 by BETTYE Hernández) H/O aortic valve replacement Hx of CABG S/P mitral valve replacement with metallic valve Social History Household Members: Unknown / Unable to assess Housing: Unknown / Unable to assess Do you presently have visiting nurse or other home services: Yes Unable to assess alcohol history related to: Unable to respond Alcohol intake: former Patient Tobacco Use Status: Former Tobacco user Tobacco use type: Cigarette e-Cigarette/Vaping Use: Never Used Second Hand Smoke Exposure: No Substance Use Type: Prescription Drugs Advance Directives Date on File: 10/23/22 service: No Current occupational status: retired -[employer] Allergies Allergy/AdvReac Type Severity Reaction Status Date / Time No Known Allergies Allergy Verified 12/23/22 10:07 [No Known Allergies*] Active Medications: Current Medications Acetaminophen (Acetaminophen 325 Mg Tablet) 650 mg PO Q6H PRN PRN Reason: Pain, Mild (Pain Scale 1-3) Docusate Sodium (Docusate Sodium 100 Mg Capsule) 100 mg PO DAILY PRN PRN Reason: Constipation Furosemide (Furosemide 100 Mg/10 Ml Vial) 80 mg IVPUSH BID@0900,1800 KASSANDRA; Protocol Ondansetron HCl (Ondansetron Hcl 4 Mg/2 Ml Vial) 4 mg IVPUSH Q8H PRN PRN Reason: Nausea and Vomiting Pharmacy Consult (Consult Rx Perform Med Rec) 1 each MISCELLANE ONCE PRN PRN Reason: Consult order Sodium Chloride (0.9 % Sodium Chloride Flush 3 Ml Syringe) 3 ml IVFLUSH [facility] Last Admin: 12/23/22 16:07 Dose: Not Given Home Medications Medication Instructions Recorded Confirmed Last Taken Type cholecalciferol (vitamin D3) 50 50 mcg PO DAILY 10/23/22 12/23/22 10/23/22 History mcg (2,000 unit) capsule cyanocobalamin (vitamin B-12) 1,000 mcg PO DAILY 10/23/22 12/23/22 10/23/22 History 1,000 mcg tablet diltiazem HCl 240 mg 1 cap PO DAILY 10/23/22 12/23/22 10/22/22 History capsule,extended release 24 hr ferrous sulfate 325 mg (65 mg 325 mg PO DAILY@0800 10/23/22 12/23/22 10/23/22 History iron) tablet fluoxetine 10 mg capsule 1 cap PO DAILY 10/23/22 12/23/22 10/23/22 History folic acid 800 mcg tablet 0.8 mg PO DAILY 10/23/22 12/23/22 10/23/22 History phenytoin sodium extended 100 mg 400 mg PO DAILY 10/23/22 12/23/22 10/23/22 History capsule rosuvastatin 10 mg tablet 1 tab PO DAILY 10/23/22 12/23/22 10/23/22 History tamsulosin 0.4 mg capsule 2 cap PO BEDTIME 10/23/22 12/23/22 10/22/22 History zinc sulfate 50 mg zinc (220 mg) 50 mg PO DAILY 10/23/22 12/23/22 10/23/22 History capsule acetaminophen 325 mg tablet 650 mg PO Q6H PRN Fever Or Pain 12/23/22 12/23/22 Unknown History budesonide-formoterol HFA 160 2 puff inhalation BID 12/23/22 12/23/22 Unknown History mcg-4.5 mcg/actuation aerosol inhaler cefpodoxime 200 mg tablet 200 mg PO Q12H 12/23/22 12/23/22 Unknown History losartan 25 mg tablet 25 mg PO DAILY 12/23/22 12/23/22 Unknown History oxycodone-acetaminophen 5 mg-325 1 tab PO BID PRN pain 12/23/22 12/23/22 Unknown History mg tablet torsemide 100 mg tablet 100 mg PO BID@0900,1200 12/23/22 12/23/22 Unknown History Physical Exam Vital Signs and Narrative: Vital Signs: Last Vital Signs Temp 98.1 F 12/23/22 13:32 Pulse 84 12/23/22 14:51 Resp 18 12/23/22 14:51 BP 111/58 L 12/23/22 14:51 Pulse Ox 100 12/23/22 13:32 O2 Del Method High Flow Nasal C annula 12/23/22 14:51 O2 Flow Rate 55 12/23/22 14:51 FiO2 35 12/23/22 12:18 BMI result Body Mass Index 23.0 Constitutional - Awake and Alert, No apparent distress Eyes - Left pupil chronically dilated. PERRLA, EOMI Cardiovascular - S1S2, RRR, 2+ BLE edema Respiratory - Normal lung expansion, Normal respiratory effort, No respiratory distress, fine crackles bilaterally Gastrointestinal - NT / ND; +BS; No rebound or guarding - fontana catheter in place draining yellow urine Extremities - no calf tenderness bilaterally, no swelling Skin - Warm/Dry Neurological - Alert & oriented x4 initially, CN II-XII in tact, 5/5 strength BUE and BLE. On re-exam, patient with myoclonic jerking, somnolent Psychological - Appropriate affect Results Labs 12/23/22 11:01 12/23/22 11:01 Labs: Laboratory Results - last 24 hr 12/23/22 12/23/22 12/23/22 10:59 11:01 11:01 MCV 108.1 H MCH 33.3 H MCHC 30.8 L RDW 14.9 Plt Count 232 MPV 9.5 Immature Gran % (Auto) 0.8 H Neut % (Auto) 82.9 H Lymph % (Auto) 4.3 L [place] % (Auto) 10.1 Eos % (Auto) 1.6 Baso % (Auto) 0.3 Lymph # (Auto) 0.4 L [place] # (Auto) 0.9 Eos # (Auto) 0.2 Baso # (Auto) 0.0 Abs Immat Gran (auto) 0.07 H Absolute Neuts (auto) 7.6 Absolute Nucleated RBC 0.000 Nucleated RBC % (auto) 0.0 PT INR APTT VBG pH VBG pCO2 VBG pO2 VBG HCO3 VBG O2 Saturation VBG Base Excess Anion Gap 13 Estim Creat Clear Calc 41.5 Estimated GFR 44 POC Glucose 103 Random Glucose 85 Lactic Acid Calcium 8.5 Magnesium Total Bilirubin Direct Bilirubin AST ALT Alkaline Phosphatase Ammonia Total Creatine Kinase Troponin I High Sens B-Natriuretic Peptide Total Protein Albumin Lipase TSH Urine Color Urine Appearance Urine pH Ur Specific [place] Urine Protein Urine Glucose (UA) Urine Ketones Urine Blood Urine Nitrite Ur Leukocyte Esterase Urine RBC Urine WBC Ur Squamous Epith Cells Urine Bacteria Hyaline Casts Phenytoin Ethyl Alcohol Influenza Type A (PCR) Influenza Type B (PCR) RSV RNA Qual (PCR) SARS-CoV-2 RNA (RT-PCR) Blood Type Antibody Screen 12/23/22 12/23/22 12/23/22 11:01 11:01 11:01 MCV MCH MCHC RDW Plt Count MPV Immature Gran % (Auto) Neut % (Auto) Lymph % (Auto) [place] % (Auto) Eos % (Auto) Baso % (Auto) Lymph # (Auto) [place] # (Auto) Eos # (Auto) Baso # (Auto) Abs Immat Gran (auto) Absolute Neuts (auto) Absolute Nucleated RBC Nucleated RBC % (auto) PT 59.9 H INR 4.9 H D APTT 42.3 H VBG pH VBG pCO2 VBG pO2 VBG HCO3 VBG O2 Saturation VBG Base Excess Anion Gap Estim Creat Clear Calc Estimated GFR POC Glucose Random Glucose Lactic Acid Calcium Magnesium 2.4 Total Bilirubin 0.5 Direct Bilirubin 0.2 AST 45 H ALT 35 Alkaline Phosphatase 332 H Ammonia Total Creatine Kinase 94 Troponin I High Sens 13.7 B-Natriuretic Peptide Total Protein 6.7 Albumin 3.6 Lipase 33 TSH Urine Color Urine Appearance Urine pH Ur Specific [place] Urine Protein Urine Glucose (UA) Urine Ketones Urine Blood Urine Nitrite Ur Leukocyte Esterase Urine RBC Urine WBC Ur Squamous Epith Cells Urine Bacteria Hyaline Casts Phenytoin Ethyl Alcohol < 10 Influenza Type A (PCR) Influenza Type B (PCR) RSV RNA Qual (PCR) SARS-CoV-2 RNA (RT-PCR) Blood Type Antibody Screen 12/23/22 12/23/22 12/23/22 11:01 11:01 12:12 MCV MCH MCHC RDW Plt Count MPV Immature Gran % (Auto) Neut % (Auto) Lymph % (Auto) [place] % (Auto) Eos % (Auto) Baso % (Auto) Lymph # (Auto) [place] # (Auto) Eos # (Auto) Baso # (Auto) Abs Immat Gran (auto) Absolute Neuts (auto) Absolute Nucleated RBC Nucleated RBC % (auto) PT INR APTT VBG pH VBG pCO2 VBG pO2 VBG HCO3 VBG O2 Saturation VBG Base Excess Anion Gap Estim Creat Clear Calc Estimated GFR POC Glucose Random Glucose Lactic Acid 1.5 Calcium Magnesium Total Bilirubin Direct Bilirubin AST ALT Alkaline Phosphatase Ammonia Total Creatine Kinase Troponin I High Sens B-Natriuretic Peptide 970 H Total Protein Albumin Lipase TSH 1.88 Urine Color Urine Appearance Urine pH Ur Specific [place] Urine Protein Urine Glucose (UA) Urine Ketones Urine Blood Urine Nitrite Ur Leukocyte Esterase Urine RBC Urine WBC Ur Squamous Epith Cells Urine Bacteria Hyaline Casts Phenytoin Ethyl Alcohol Influenza Type A (PCR) Influenza Type B (PCR) RSV RNA Qual (PCR) SARS-CoV-2 RNA (RT-PCR) Blood Type Antibody Screen 12/23/22 12/23/22 12/23/22 12:12 12:12 12:13 MCV MCH MCHC RDW Plt Count MPV Immature Gran % (Auto) Neut % (Auto) Lymph % (Auto) [place] % (Auto) Eos % (Auto) Baso % (Auto) Lymph # (Auto) [place] # (Auto) Eos # (Auto) Baso # (Auto) Abs Immat Gran (auto) Absolute Neuts (auto) Absolute Nucleated RBC Nucleated RBC % (auto) PT INR APTT VBG pH VBG pCO2 VBG pO2 VBG HCO3 VBG O2 Saturation VBG Base Excess Anion Gap Estim Creat Clear Calc Estimated GFR POC Glucose Random Glucose Lactic Acid Calcium Magnesium Total Bilirubin Direct Bilirubin AST ALT Alkaline Phosphatase Ammonia 19 Total Creatine Kinase Troponin I High Sens B-Natriuretic Peptide Total Protein Albumin Lipase TSH Urine Color Urine Appearance Urine pH Ur Specific [place] Urine Protein Urine Glucose (UA) Urine Ketones Urine Blood Urine Nitrite Ur Leukocyte Esterase Urine RBC Urine WBC Ur Squamous Epith Cells Urine Bacteria Hyaline Casts Phenytoin 10.2 Ethyl Alcohol Influenza Type A (PCR) Influenza Type B (PCR) RSV RNA Qual (PCR) SARS-CoV-2 RNA (RT-PCR) Blood Type O Positive Antibody Screen NEGATIVE 12/23/22 12/23/22 12/23/22 12:15 12:20 13:49 MCV MCH MCHC RDW Plt Count MPV Immature Gran % (Auto) Neut % (Auto) Lymph % (Auto) [place] % (Auto) Eos % (Auto) Baso % (Auto) Lymph # (Auto) [place] # (Auto) Eos # (Auto) Baso # (Auto) Abs Immat Gran (auto) Absolute Neuts (auto) Absolute Nucleated RBC Nucleated RBC % (auto) PT INR APTT VBG pH 7.33 VBG pCO2 46 VBG pO2 46 VBG HCO3 25 VBG O2 Saturation 71.0 VBG Base Excess -0.6 Anion Gap Estim Creat Clear Calc Estimated GFR POC Glucose Random Glucose Lactic Acid Calcium Magnesium Total Bilirubin Direct Bilirubin AST ALT Alkaline Phosphatase Ammonia Total Creatine Kinase Troponin I High Sens 15.4 B-Natriuretic Peptide Total Protein Albumin Lipase TSH Urine Color Urine Appearance Urine pH Ur Specific [place] Urine Protein Urine Glucose (UA) Urine Ketones Urine Blood Urine Nitrite Ur Leukocyte Esterase Urine RBC Urine WBC Ur Squamous Epith Cells Urine Bacteria Hyaline Casts Phenytoin Ethyl Alcohol Influenza Type A (PCR) NEGATIVE Influenza Type B (PCR) NEGATIVE RSV RNA Qual (PCR) NEGATIVE SARS-CoV-2 RNA (RT-PCR) NEGATIVE Blood Type Antibody Screen 12/23/22 14:30 MCV MCH MCHC RDW Plt Count MPV Immature Gran % (Auto) Neut % (Auto) Lymph % (Auto) [place] % (Auto) Eos % (Auto) Baso % (Auto) Lymph # (Auto) [place] # (Auto) Eos # (Auto) Baso # (Auto) Abs Immat Gran (auto) Absolute Neuts (auto) Absolute Nucleated RBC Nucleated RBC % (auto) PT INR APTT VBG pH VBG pCO2 VBG pO2 VBG HCO3 VBG O2 Saturation VBG Base Excess Anion Gap Estim Creat Clear Calc Estimated GFR POC Glucose Random Glucose Lactic Acid Calcium Magnesium Total Bilirubin Direct Bilirubin AST ALT Alkaline Phosphatase Ammonia Total Creatine Kinase Troponin I High Sens B-Natriuretic Peptide Total Protein Albumin Lipase TSH Urine Color Yellow Urine Appearance Clear Urine pH 5.5 Ur Specific [place] 1.015 Urine Protein 100 (2+) H Urine Glucose (UA) Negative Urine Ketones Negative Urine Blood Negative Urine Nitrite Negative Ur Leukocyte Esterase Negative Urine RBC 0-2 Urine WBC 0-5 Ur Squamous Epith Cells 0-2 Urine Bacteria None Seen Hyaline Casts 3-5 Phenytoin Ethyl Alcohol Influenza Type A (PCR) Influenza Type B (PCR) RSV RNA Qual (PCR) SARS-CoV-2 RNA (RT-PCR) Blood Type Antibody Screen Imaging Radiologist's Impressions: Impressions Abdomen/Pelvis CT 12/23/22 11:35 IMPRESSION: Limited due to motion artifact in the lower pelvis. Cirrhosis and small amount of ascites. Diverticulosis. T12 and T11 vertebral body compression fractures similar to recent exam. Fleischner guidelines were followed. Cervical Spine CT 12/23/22 11:35 IMPRESSION: Head CT: No acute findings. Generalized atrophy and nonspecific periventricular white matter disease. Very limited exam due to motion artifact. Multilevel degenerative changes. No fracture seen. Chest CT 12/23/22 11:35 IMPRESSION: Enlarged heart. Increased interstitial markings probably representing a combination of interstitial lung disease and mild interstitial pulmonary edema. Small bilateral pleural effusions appear slightly loculated, left greater than right. Multiple thoracic vertebral body compression fractures as described above. Fleischner guidelines were followed. Head CT 12/23/22 11:35 IMPRESSION: Head CT: No acute findings. Generalized atrophy and nonspecific periventricular white matter disease. Very limited exam due to motion artifact. Multilevel degenerative changes. No fracture seen. Assessment and Plan (1) CHF (congestive heart failure): Status: Acute (2) Myoclonic seizure: Status: Acute Plan 77 year old male with history of Seizure disorder, coronary artery disease s/p CABG, paroxysmal atrial fibrillation anticoagulated with Coumadin, left eye blindness, hypertension, COPD, interstitial lung disease, pulmonary hypertension, HFpEF, BPH with LUTS, h/o UE DVT, and CKD stage 3. #Acute CHF exacerbation -last echo 10/24/2022 showing normal LV systolic function with EF 55-60%, diastolic function indeterminate. There is moderately increased right ventricular cavity size and moderately decreased right ventricular systolic function. Mechanical prosthetic aortic valve present and functioning appropriately with moderate aortic valve stenosis. Mechanical prosthetic mitral valve also present and appearing to function normally. -BNP 970 -symptomatic with orthopnea, dyspnea on exertion, bilateral lower extremity edema -No hypoxia, but tachypneic on arrival. ABG reassuring. Improved with High flow. Continue high flow, titrate as appropriate -Given IV lasix 40mg in ED. Continue IV lasix 80mg BID -strict I&O -daily weights -cardiac diet -Continue fontana -appreciate cardiology input #Myoclonic seizures -Loaded with keppra 1g in ED. Continue IV keppra 500mg BID -Hold phenytoin at this time per neurology. Phenytoin level therapeutic at 10.4 -eeg ordered -Head CT negative for acute abnormality. No focal neuro deficit on initial exam. Left pupil chronically dilated- blind in left eye -appreciate neurology input #Ictal bradycardia -significant sinus pauses noted during seizure acitvity with HR down to 17 -HR now controlled -Keep pacer pads in place -Monitor on telemetry #Urinary tract infection -recently admitted 12/17- to [facility] for Klebsiella UTI with urinary retention and UTI -Continue cefpodoxime BID (complete remaining 3 doses) #Paroxysmal atrial fibrillation- rate controlled -INR supratherapeutic at 4.9. Hold coumadin. Monitor INR daily -continue diltiazem # interstitial lung disease/COPD -no acute exacerbation. Symptoms appear to be related to CHF -continue inhalers, albuterol p.r.n. #BPH with LUTS -has urinary retention. Continue fontana acutely for fluid management -continue tamsulosin #CKD stage 3 -renal function baseline #Macrocytic anemia r/t vitamin b12 deficiency -continue vitamin b12 -H/H above transfusion threshold DVT porphylaxis- INR supratherapeutic, SCPs DNR/DNI Pt requires inpt stay at least 2 midnights for management of acute CHF exacerbation requiring high flow O2, IV diuresis and close monitoring and treatment given recurrent seizure activity # Time Spent With Patient Time: Total time managing care of this patient today ____ minutes. Quality Stroke Does the patient have a stroke diagnosis?: No VTE Prior VTE?: Yes VTE Risk Level:: Medical - moderate - high VTE Device Contraindication: Treatment Not Indicated VTE Drug Contraindication: N/A - Med Ordered
[2022-12-23 16:19] LABS: Glucose, Whole Blood 110 mg/dL (60-115)
[2022-12-23] MEDS: levETIRAcetam in NaCl (iso-os) 1,000 MG/100 ML PIGGYBACK 400 MG IV (16:27)
--- NOTE | 2022-12-23 16:29 | PC.NURSE ---
Pt noted with low HR down to 30s briefly, Dr Decker at bedside performing hospitalist admit consult, pt noted to have some twitching to b/l UE and LE and confused. Ativan and Keppra given per verbal order. VSS
[2022-12-23 16:38] LABS: ABG Base Excess 1.4 mmol/L; ABG HCO3 26 mmol/L (22-26); ABG pCO2 44 mmHg (32-45); ABG pH 7.38 (7.35-7.45); ABG pO2 142 mmHg (83-108)
[2022-12-23] MEDS: LORazepam 2 MG/ML VIAL IVPUSH (16:55)
[2022-12-23 17:00] LABS: Phenytoin Dilantin 10.4 ug/mL (10.0-20.0)
[2022-12-23] MEDS: Furosemide 100 MG/10 ML VIAL 80 MG IVPUSH (19:19)
--- NOTE | 2022-12-23 19:37 | PC.NURSE ---
Pt. admitted from ED. Upon arriving to the floor it was noted that pt. R pupil was constricted and L pupil was dilated. Was not addressed in report so MD was notified. History and baseline could not be obtained from pt. due to him being unresponsive and only responding to deep pain. In his chart from an earlier admittance it was charted that the pt. 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 MD is aware and will continue to monitor.
[2022-12-23] MEDS: 0.9 % Sodium Chloride Flush 3 ML SYRINGE IVFLUSH (20:01)
[2022-12-23] MEDS: LORazepam 2 MG/ML VIAL 1 MG IVPUSH (20:35)
[2022-12-23 22:01] LABS: Amphetamine Screen Urine Not Detected (Not Detect); Barbiturates, Urine Not Detected (Not Detect); Benzodiazepines Screen Urine Not Detected (Not Detect); Cannabinoid Screen Urine POSITIVE (Not Detect); Cocaine Screen Urine Not Detected (Not Detect); Fentanyl, urine Not Detected (Not Detect); Opiate Screen Urine Not Detected (Not Detect); Phencyclidine Screen Urine Not Detected (Not Detect)
--- NOTE | 2022-12-23 22:05 | P.EN_ITS ---
Event Note Date of Service: 12/23/22 Event Note: pt develped myoclonic seizures, W jerking in his lower extremities. pt unresponsive with right pupil dilated. recieved 1 mg of IV ativan with minimal effect, CT of the head repeated shows no acute findings , spoke to neurology , pt requires continuous EEG monitoring. Call made to [facility] with no bed available. Called [facility], accepted by the neurology service by Dr Raj Maynard . Son notified of the transfer Time Spent With Patient Time: Total time managing care of this patient today ____ minutes.
--- NOTE | 2022-12-23 22:31 | P.DS_ITS ---
on my arrival, to the start of my shift, received a message from nurse the patient has myoclonic jerking in the lower extremities as well as unresponsive, with right pupil constricted. On our exam patient noted to have myoclonic seizures, received 1 mg of Ativan with minimal response, contacted Neurology, agrees for transfer for continuous EEG periods call made to [facility], bed not available. [facility] was contacted, and patient will be transferred under neurology service DS: Providers Provider Date of Service: 12/23/22 Date of admission: 12/23/22 16:04 Date of discharge: 12/23/22 Primary care physician: David Roman DO Admitting clinician: Maritza Lazaro Attending physician on admission: Chu Decker Consults: 12/23/22 15:59 Consult to Cardiology Routine Consulting Provider: [facility] Reason for consultation: chf exacerbation 12/23/22 16:32 Consult to Neurology Routine Consulting Provider: [facility] Reason for consultation: seizure Attending physician on discharge: Rc Schafer Discharging clinician: Maritza Lazaro DS: Transfer Hospital Acceptance Reason for Transfer: Status epilepticus Name of Facility: [facility] Accepting Provider: Dr. Weaver DS: Diagnosis Discharge Diagnosis (1) CHF (congestive heart failure): Status: Acute (2) Myoclonic seizure: Status: Acute DS: Summary Hospital Course Hospital Course: HPI on admission 12/23 by this provider: 77 year old male with history of Seizure disorder, coronary artery disease s/p CABG, paroxysmal atrial fibrillation anticoagulated with Coumadin, left eye blindness, hypertension, COPD, interstitial lung disease, pulmonary hypertension, HFpEF, BPH with LUTS, h/o UE DVT, and CKD stage 3 presented to the ED from [facility] where he resides in assisted living facility for evaluation of shortness of breath and altered mental status with hallucinations.? Patient states that he is chronically short of breath but reports worsening of symptoms this morning.? He does endorse orthopnea and dyspnea on exertion and dyspnea with minimal activity such as shaving.? He has also been wheezing.? He is aware of his confusion this morning and states he was experiencing auditory hallucinations but was aware these were not real.? He has never experienced similar symptoms in the past.? He was recently discharged from [facility] with admission from 12/17- for UTI with urinary retention and metabolic encephalopathy.? He has been compliant with cefpodoxime which he was discharged on and has 3 remaining doses. He denies any fevers, chills, abd pain, nausea, vomiting, diarrhea, constipation, melena, hematochezia, palpitations, lightheadedness, or chest pain. On arrival, patient was noted to be tachypneic at 34 with oximetry 92% on room air.? All other vital signs stable.? There is no leukocytosis.? H/H 8.2/26.6% with MCV 108.1.? PTT 59.9, INR 4.9, PTT 42.3.? ABG pH 7.38, pCO2 44, PO2 142, bicarb 26.? Creatinine 1.53, consistent with baseline, BUN 29.? Electrolyte levels normal.? Troponins within normal limits.? BNP 970.? Urinalysis unremarkable.? Phenytoin level 10.4.? Head CT without any acute intracranial abnormality.? Cervical spine CT negative for any fracture subluxation.? CT abdomen/pelvis showing cirrhosis and small amount of ascites but no acute intra- abdominal abnormality.? There were compression fractures at [id number] similar to prior exams.? Chest CT shows cardiomegaly.? There is also diffuse Interstitial markings probably representing combination of interstitial lung disease and mild interstitial pulmonary edema.? There are also small bilateral pleural effusions that appear slightly loculated, left greater than right. Attempted to treat patient on bipap but he felt this worsened his sob, and has been maintained on high flow with improvements in work of breathing. In the ED, given 40 mg IV Lasix.? On re-exam with Dr. Decker, patient developed myoclonic jerking with HR down to 17. Given 2mg IV lorazepam and loaded with keppra 1000mg. Pacer pads placed. Hospital Course: As noted above patient admitted for CHF exacerbation. Shortly after admission, patient re-examined with Dr. Decker and developed myoclonic jerking and was unresponsive. Had an episode of ictal bradycardia to 17. Given single dose 2mg ativan with cessation of myoclonic jerking and patient awoke and was post-ictal, disoriented, vitals stable, and fell to sleep. Following initial seizure activity, noted to be hypoxic to 87% on RA. Vitals otherwise stable, no further bradycardia. Patient is DNR so pacer pads removed. ABG was reassuring without hypercapnia. Electrolyte levels all within normal limits. Case discussed with Neurology recommending Keppra load and 1 g IV Keppra initiated. He was admitted on 80mg IV lasix BID with fontana catheter for fluid management. He was admitted on high-flow O2 given post ictal hypoxia and tachypnea on arrival with diffuse interstial markings on chest CT, patient did not tolerate bipap. On arrival to floor, patient has single 4 second run NSVT noted on pvc monitor without recurrence. Around 8pm nursing notified provider patient unresponsive with fixed right pupil and dilated left pupil (chronic) with myoclonic seizure activity in BLE. VSS at this time. Additional 1mg lorazepam administered with out change in mental status and myoclonic jerking persists, though slightly improved. Remains un responsive. Repeat head CT obtained without acute abnormality. Given concern for status epilepticus, call placed to neurology is recommending transfer to tertiary care facility for continuous EEG monitoring for status epilepticus as this cannot be performed at our facility. Patient has been accepted to [facility] and will be transferred via ACLS. #Acute CHF exacerbation -last echo 10/24/2022 showing normal LV systolic function with EF 55-60%, diastolic function indeterminate.? There is moderately increased right ventricular cavity size and moderately decreased right ventricular systolic function.? Mechanical prosthetic aortic valve present and functioning appropriately with moderate aortic valve stenosis.? Mechanical prosthetic mitral valve also present and appearing to function normally. -BNP 970 -symptomatic with orthopnea, dyspnea on exertion, bilateral lower extremity edema -No hypoxia, but tachypneic on arrival. ABG reassuring. Improved with High flow. Continue high flow, titrate as appropriate -Given IV lasix 40mg in ED. Continue IV lasix 80mg BID -strict I&O -daily weights -cardiac diet -Continue fontana -appreciate cardiology input #Myoclonic seizures -Loaded with keppra 1g in ED. Continue IV keppra 500mg BID -Hold phenytoin at this time per neurology. Phenytoin level therapeutic at 10.4 -eeg ordered -Head CT negative for acute abnormality. No focal neuro deficit on initial exam. Left pupil chronically dilated- blind in left eye -As above, patient with recurrent myoclonic seizures and unresponsive. Given addl 1mg IV lorazepam with minimal improvement. Neuro recommending transfer to tertiary care facility for management of status epilepticus #Ictal bradycardia -significant sinus pauses noted during seizure acitvity with HR down to 17 -HR now controlled -Pacer pads removed as patient DNR -Monitor on telemetry #Urinary tract infection -recently admitted 12/17- [facility] for Klebs[facility] UTI with urinary retention and UTI -Continue cefpodoxime BID (complete remaining 3 doses) #Paroxysmal atrial fibrillation- rate controlled -INR supratherapeutic at 4.9. Hold coumadin. Monitor INR daily -continue diltiazem # interstitial lung disease/COPD -no acute exacerbation.? Symptoms appear to be related to CHF -continue inhalers, albuterol p.r.n. #BPH with LUTS -has urinary retention. Continue fontana acutely for fluid management -continue tamsulosin #CKD stage 3 -renal function baseline #Macrocytic anemia r/t vitamin b12 deficiency -continue vitamin b12 -H/H above transfusion threshold Time spent discussing smoking cessation with patient: more than 10 minutes Status at Discharge Functional status at discharge: bed bound Overall status at discharge: patient is not back to baseline Time Spent with Patient Time attestation: Total time managing care of this patient today ____ minutes. Discharge coordination time: Greater than 30 minutes Quality: Safe Use of Opioids Does Pt have an Active Cancer Diagnosis on the Problem List?: No Quality: Stroke Does the patient have a stroke diagnosis?: No Physical Exam Vital Signs: Vital Signs: Last Vital Signs Temp 97.0 F 12/23/22 21:07 Pulse 78 12/23/22 21:07 Resp 12 12/23/22 21:07 BP 138/73 12/23/22 21:07 Pulse Ox 100 12/23/22 21:07 O2 Del Method High Flow Nasal C annula 12/23/22 21:07 O2 Flow Rate 50 12/23/22 21:07 FiO2 34 12/23/22 21:07 BMI result Body Mass Index 23.0 Constitutional - unresponsive, No apparent distress Eyes - PERRLA, EOMI Cardiovascular - S1S2, RRR, 2+ ble edema Respiratory - Normal lung expansion, Normal respiratory effort, No respiratory distress, fine crackles bilateral lower lobes Gastrointestinal - NT / ND; +BS; No rebound or guarding Extremities - no calf tenderness bilaterally, no swelling Skin - Warm/Dry Neurological - unresponsive with intermittent myoclonic jerking, constricted fixed right pupil, dilated left pupil (chronic) Psychological - Appropriate affect DS: Data Data Completed and Pending Labs on day of discharge: Laboratory Results - last 24 hr 12/23/22 12/23/22 12/23/22 10:59 11:01 11:01 WBC 9.2 RBC 2.46 L Hgb 8.2 L Hct 26.6 L MCV 108.1 H MCH 33.3 H MCHC 30.8 L RDW 14.9 Plt Count 232 MPV 9.5 Immature Gran % (Auto) 0.8 H Neut % (Auto) 82.9 H Lymph % (Auto) 4.3 L [place] % (Auto) 10.1 Eos % (Auto) 1.6 Baso % (Auto) 0.3 Lymph # (Auto) 0.4 L [place] # (Auto) 0.9 Eos # (Auto) 0.2 Baso # (Auto) 0.0 Abs Immat Gran (auto) 0.07 H Absolute Neuts (auto) 7.6 Absolute Nucleated RBC 0.000 Nucleated RBC % (auto) 0.0 PT INR APTT O2 Saturation ABG pH at Pt Temp ABG pCO2 at Pt Temp ABG pO2 at Pt Temp ABG HCO3 ABG Base Excess (Actual) VBG pH VBG pCO2 VBG pO2 VBG HCO3 VBG O2 Saturation VBG Base Excess Sodium 138 Potassium 4.2 Chloride 105 Carbon Dioxide 24 Anion Gap 13 BUN 29 H Creatinine 1.53 H Estim Creat Clear Calc 41.5 Estimated GFR 44 POC Glucose 103 Random Glucose 85 Lactic Acid Calcium 8.5 Magnesium Total Bilirubin Direct Bilirubin AST ALT Alkaline Phosphatase Ammonia Total Creatine Kinase Troponin I High Sens B-Natriuretic Peptide Total Protein Albumin Lipase TSH Urine Color Urine Appearance Urine pH Ur Specific [place] Urine Protein Urine Glucose (UA) Urine Ketones Urine Blood Urine Nitrite Ur Leukocyte Esterase Urine RBC Urine WBC Ur Squamous Epith Cells Urine Bacteria Hyaline Casts Urine Opiates Screen Urine Fentanyl Screen Ur Barbiturates Screen Phenytoin Ur Phencyclidine Scrn Ur Amphetamines Screen U Benzodiazepines Scrn Urine Cocaine Screen U Marijuana (THC) Screen Ethyl Alcohol Influenza Type A (PCR) Influenza Type B (PCR) RSV RNA Qual (PCR) SARS-CoV-2 RNA (RT-PCR) Blood Type Antibody Screen 12/23/22 12/23/22 12/23/22 11:01 11:01 11:01 WBC RBC Hgb Hct MCV MCH MCHC RDW Plt Count MPV Immature Gran % (Auto) Neut % (Auto) Lymph % (Auto) [place] % (Auto) Eos % (Auto) Baso % (Auto) Lymph # (Auto) [place] # (Auto) Eos # (Auto) Baso # (Auto) Abs Immat Gran (auto) Absolute Neuts (auto) Absolute Nucleated RBC Nucleated RBC % (auto) PT 59.9 H INR 4.9 H D APTT 42.3 H O2 Saturation ABG pH at Pt Temp ABG pCO2 at Pt Temp ABG pO2 at Pt Temp ABG HCO3 ABG Base Excess (Actual) VBG pH VBG pCO2 VBG pO2 VBG HCO3 VBG O2 Saturation VBG Base Excess Sodium Potassium Chloride Carbon Dioxide Anion Gap BUN Creatinine Estim Creat Clear Calc Estimated GFR POC Glucose Random Glucose Lactic Acid Calcium Magnesium 2.4 Total Bilirubin 0.5 Direct Bilirubin 0.2 AST 45 H ALT 35 Alkaline Phosphatase 332 H Ammonia Total Creatine Kinase 94 Troponin I High Sens 13.7 B-Natriuretic Peptide Total Protein 6.7 Albumin 3.6 Lipase 33 TSH Urine Color Urine Appearance Urine pH Ur Specific [place] Urine Protein Urine Glucose (UA) Urine Ketones Urine Blood Urine Nitrite Ur Leukocyte Esterase Urine RBC Urine WBC Ur Squamous Epith Cells Urine Bacteria Hyaline Casts Urine Opiates Screen Urine Fentanyl Screen Ur Barbiturates Screen Phenytoin Ur Phencyclidine Scrn Ur Amphetamines Screen U Benzodiazepines Scrn Urine Cocaine Screen U Marijuana (THC) Screen Ethyl Alcohol < 10 Influenza Type A (PCR) Influenza Type B (PCR) RSV RNA Qual (PCR) SARS-CoV-2 RNA (RT-PCR) Blood Type Antibody Screen 12/23/22 12/23/22 12/23/22 11:01 11:01 12:12 WBC RBC Hgb Hct MCV MCH MCHC RDW Plt Count MPV Immature Gran % (Auto) Neut % (Auto) Lymph % (Auto) [place] % (Auto) Eos % (Auto) Baso % (Auto) Lymph # (Auto) [place] # (Auto) Eos # (Auto) Baso # (Auto) Abs Immat Gran (auto) Absolute Neuts (auto) Absolute Nucleated RBC Nucleated RBC % (auto) PT INR APTT O2 Saturation ABG pH at Pt Temp ABG pCO2 at Pt Temp ABG pO2 at Pt Temp ABG HCO3 ABG Base Excess (Actual) VBG pH VBG pCO2 VBG pO2 VBG HCO3 VBG O2 Saturation VBG Base Excess Sodium Potassium Chloride Carbon Dioxide Anion Gap BUN Creatinine Estim Creat Clear Calc Estimated GFR POC Glucose Random Glucose Lactic Acid 1.5 Calcium Magnesium Total Bilirubin Direct Bilirubin AST ALT Alkaline Phosphatase Ammonia Total Creatine Kinase Troponin I High Sens B-Natriuretic Peptide 970 H Total Protein Albumin Lipase TSH 1.88 Urine Color Urine Appearance Urine pH Ur Specific [place] Urine Protein Urine Glucose (UA) Urine Ketones Urine Blood Urine Nitrite Ur Leukocyte Esterase Urine RBC Urine WBC Ur Squamous Epith Cells Urine Bacteria Hyaline Casts Urine Opiates Screen Urine Fentanyl Screen Ur Barbiturates Screen Phenytoin Ur Phencyclidine Scrn Ur Amphetamines Screen U Benzodiazepines Scrn Urine Cocaine Screen U Marijuana (THC) Screen Ethyl Alcohol Influenza Type A (PCR) Influenza Type B (PCR) RSV RNA Qual (PCR) SARS-CoV-2 RNA (RT-PCR) Blood Type Antibody Screen 12/23/22 12/23/22 12/23/22 12:12 12:12 12:13 WBC RBC Hgb Hct MCV MCH MCHC RDW Plt Count MPV Immature Gran % (Auto) Neut % (Auto) Lymph % (Auto) [place] % (Auto) Eos % (Auto) Baso % (Auto) Lymph # (Auto) [place] # (Auto) Eos # (Auto) Baso # (Auto) Abs Immat Gran (auto) Absolute Neuts (auto) Absolute Nucleated RBC Nucleated RBC % (auto) PT INR APTT O2 Saturation ABG pH at Pt Temp ABG pCO2 at Pt Temp ABG pO2 at Pt Temp ABG HCO3 ABG Base Excess (Actual) VBG pH VBG pCO2 VBG pO2 VBG HCO3 VBG O2 Saturation VBG Base Excess Sodium Potassium Chloride Carbon Dioxide Anion Gap BUN Creatinine Estim Creat Clear Calc Estimated GFR POC Glucose Random Glucose Lactic Acid Calcium Magnesium Total Bilirubin Direct Bilirubin AST ALT Alkaline Phosphatase Ammonia 19 Total Creatine Kinase Troponin I High Sens B-Natriuretic Peptide Total Protein Albumin Lipase TSH Urine Color Urine Appearance Urine pH Ur Specific [place] Urine Protein Urine Glucose (UA) Urine Ketones Urine Blood Urine Nitrite Ur Leukocyte Esterase Urine RBC Urine WBC Ur Squamous Epith Cells Urine Bacteria Hyaline Casts Urine Opiates Screen Urine Fentanyl Screen Ur Barbiturates Screen Phenytoin 10.2 Ur Phencyclidine Scrn Ur Amphetamines Screen U Benzodiazepines Scrn Urine Cocaine Screen U Marijuana (THC) Screen Ethyl Alcohol Influenza Type A (PCR) Influenza Type B (PCR) RSV RNA Qual (PCR) SARS-CoV-2 RNA (RT-PCR) Blood Type O Positive Antibody Screen NEGATIVE 12/23/22 12/23/22 12/23/22 12:15 12:20 13:49 WBC RBC Hgb Hct MCV MCH MCHC RDW Plt Count MPV Immature Gran % (Auto) Neut % (Auto) Lymph % (Auto) [place] % (Auto) Eos % (Auto) Baso % (Auto) Lymph # (Auto) [place] # (Auto) Eos # (Auto) Baso # (Auto) Abs Immat Gran (auto) Absolute Neuts (auto) Absolute Nucleated RBC Nucleated RBC % (auto) PT INR APTT O2 Saturation ABG pH at Pt Temp ABG pCO2 at Pt Temp ABG pO2 at Pt Temp ABG HCO3 ABG Base Excess (Actual) VBG pH 7.33 VBG pCO2 46 VBG pO2 46 VBG HCO3 25 VBG O2 Saturation 71.0 VBG Base Excess -0.6 Sodium Potassium Chloride Carbon Dioxide Anion Gap BUN Creatinine Estim Creat Clear Calc Estimated GFR POC Glucose Random Glucose Lactic Acid Calcium Magnesium Total Bilirubin Direct Bilirubin AST ALT Alkaline Phosphatase Ammonia Total Creatine Kinase Troponin I High Sens 15.4 B-Natriuretic Peptide Total Protein Albumin Lipase TSH Urine Color Urine Appearance Urine pH Ur Specific [place] Urine Protein Urine Glucose (UA) Urine Ketones Urine Blood Urine Nitrite Ur Leukocyte Esterase Urine RBC Urine WBC Ur Squamous Epith Cells Urine Bacteria Hyaline Casts Urine Opiates Screen Urine Fentanyl Screen Ur Barbiturates Screen Phenytoin Ur Phencyclidine Scrn Ur Amphetamines Screen U Benzodiazepines Scrn Urine Cocaine Screen U Marijuana (THC) Screen Ethyl Alcohol Influenza Type A (PCR) NEGATIVE Influenza Type B (PCR) NEGATIVE RSV RNA Qual (PCR) NEGATIVE SARS-CoV-2 RNA (RT-PCR) NEGATIVE Blood Type Antibody Screen 12/23/22 12/23/22 12/23/22 14:30 14:30 16:15 WBC RBC Hgb Hct MCV MCH MCHC RDW Plt Count MPV Immature Gran % (Auto) Neut % (Auto) Lymph % (Auto) [place] % (Auto) Eos % (Auto) Baso % (Auto) Lymph # (Auto) [place] # (Auto) Eos # (Auto) Baso # (Auto) Abs Immat Gran (auto) Absolute Neuts (auto) Absolute Nucleated RBC Nucleated RBC % (auto) PT INR APTT O2 Saturation ABG pH at Pt Temp ABG pCO2 at Pt Temp ABG pO2 at Pt Temp ABG HCO3 ABG Base Excess (Actual) VBG pH VBG pCO2 VBG pO2 VBG HCO3 VBG O2 Saturation VBG Base Excess Sodium Potassium Chloride Carbon Dioxide Anion Gap BUN Creatinine Estim Creat Clear Calc Estimated GFR POC Glucose 110 Random Glucose Lactic Acid Calcium Magnesium Total Bilirubin Direct Bilirubin AST ALT Alkaline Phosphatase Ammonia Total Creatine Kinase Troponin I High Sens B-Natriuretic Peptide Total Protein Albumin Lipase TSH Urine Color Yellow Urine Appearance Clear Urine pH 5.5 Ur Specific [place] 1.015 Urine Protein 100 (2+) H Urine Glucose (UA) Negative Urine Ketones Negative Urine Blood Negative Urine Nitrite Negative Ur Leukocyte Esterase Negative Urine RBC 0-2 Urine WBC 0-5 Ur Squamous Epith Cells 0-2 Urine Bacteria None Seen Hyaline Casts 3-5 Urine Opiates Screen Not Detected Urine Fentanyl Screen Not Detected Ur Barbiturates Screen Not Detected Phenytoin Ur Phencyclidine Scrn Not Detected Ur Amphetamines Screen Not Detected U Benzodiazepines Scrn Not Detected Urine Cocaine Screen Not Detected U Marijuana (THC) Screen POSITIVE H Ethyl Alcohol Influenza Type A (PCR) Influenza Type B (PCR) RSV RNA Qual (PCR) SARS-CoV-2 RNA (RT-PCR) Blood Type Antibody Screen 12/23/22 12/23/22 16:30 16:37 WBC RBC Hgb Hct MCV MCH MCHC RDW Plt Count MPV Immature Gran % (Auto) Neut % (Auto) Lymph % (Auto) [place] % (Auto) Eos % (Auto) Baso % (Auto) Lymph # (Auto) [place] # (Auto) Eos # (Auto) Baso # (Auto) Abs Immat Gran (auto) Absolute Neuts (auto) Absolute Nucleated RBC Nucleated RBC % (auto) PT INR APTT O2 Saturation 100.0 ABG pH at Pt Temp 7.38 ABG pCO2 at Pt Temp 44 ABG pO2 at Pt Temp 142 H ABG HCO3 26 ABG Base Excess (Actual) 1.4 VBG pH VBG pCO2 VBG pO2 VBG HCO3 VBG O2 Saturation VBG Base Excess Sodium Potassium Chloride Carbon Dioxide Anion Gap BUN Creatinine Estim Creat Clear Calc Estimated GFR POC Glucose Random Glucose Lactic Acid Calcium Magnesium Total Bilirubin Direct Bilirubin AST ALT Alkaline Phosphatase Ammonia Total Creatine Kinase Troponin I High Sens B-Natriuretic Peptide Total Protein Albumin Lipase TSH Urine Color Urine Appearance Urine pH Ur Specific [place] Urine Protein Urine Glucose (UA) Urine Ketones Urine Blood Urine Nitrite Ur Leukocyte Esterase Urine RBC Urine WBC Ur Squamous Epith Cells Urine Bacteria Hyaline Casts Urine Opiates Screen Urine Fentanyl Screen Ur Barbiturates Screen Phenytoin 10.4 Ur Phencyclidine Scrn Ur Amphetamines Screen U Benzodiazepines Scrn Urine Cocaine Screen U Marijuana (THC) Screen Ethyl Alcohol Influenza Type A (PCR) Influenza Type B (PCR) RSV RNA Qual (PCR) SARS-CoV-2 RNA (RT-PCR) Blood Type Antibody Screen Discharge Plan Discharge Anticipated Discharge Date/Time: 12/23/22 22:21 Patient Disposition: Xfer Acute Care Hospital Discharge Diagnosis: Myoclonic Seizures, CHF Referrals: David Roman DO [Primary Care Provider] - 1 Week Discharge Medications: New cefuroxime axetil 250 mg Tablet 200 mg PO Q12H 1 Days Qty: 2 0RF tamsulosin 0.4 mg Capsule 0.8 mg PO BEDTIME 5 Days Qty: 10 0RF levetiracetam in NaCl (iso-os) 500 mg/100 mL Piggyback 500 mg IV Q12H 3 Days Qty: 600 0RF furosemide 10 mg/mL Solution 80 mg IVPUSH BID@0900,1800 5 Days Qty: 40 0RF Protocol: Hold for SBP< HOLD for SBP < : 90 Continued diltiazem HCl 240 mg capsule,extended release 24hr 1 cap PO DAILY phenytoin sodium extended 100 mg capsule 400 mg PO DAILY tamsulosin 0.4 mg capsule 2 cap PO BEDTIME rosuvastatin 10 mg tablet 1 tab PO DAILY fluoxetine 10 mg capsule 1 cap PO DAILY cyanocobalamin (vitamin B-12) 1,000 mcg Tablet 1,000 mcg PO DAILY ferrous sulfate 325 mg (65 mg iron) Tablet 325 mg PO DAILY@0800 folic acid 800 mcg Tablet 0.8 mg PO DAILY cholecalciferol (vitamin D3) 50 mcg (2,000 unit) Capsule 50 mcg PO DAILY zinc sulfate 50 mg zinc (220 mg) Capsule 50 mg PO DAILY acetaminophen 325 mg Tablet 650 mg PO Q6H PRN (Reason: Fever Or Pain) cefpodoxime 200 mg tablet 200 mg PO Q12H budesonide-formoterol 160-4.5 mcg/actuation Hfa Aerosol Inhaler 2 puff INHALATION BID losartan 25 mg tablet 25 mg PO DAILY oxycodone-acetaminophen 5-325 mg tablet 1 tab PO BID PRN (Reason: pain) torsemide 100 mg Tablet 100 mg PO BID@0900,1200 Discontinued warfarin 2.5 mg tablet 1.25 mg PO MOWEFR@1800 Rx Instructions: as directed by coumadin clinic warfarin 2.5 mg tablet 2.5 mg PO SUTUTHSA@1800 polyethylene glycol 3350 17 gram Powder In Packet 17 g PO DAILY Qty: 30 0RF Discharge Orders: Discharge Order (Routine); Ordered 12/23/22 Ordered By: Rc Schafer Activity on Discharge: As tolerated Stand Alone Forms: Patient Portal Discharge page Care Plan Goals: see below Health Concerns: status epilepticus Plan of Treatment: continuous EEG Assessment: Pt being transferred to [facility] for further management
[2022-12-24 00:43] LABS: ABG Refer to POC result
== END 2022-12-24 00:50 | disposition short-term general hospital (02) | DRG 291 ==
LOC: HO.ED 15:27 → HO.EDOVER 16:04 → HO.IMC 17:15
PROVIDERS: Physician Assistant Medical; Admitting Provider Physician Assistant; Emergency Provider Student in an Organized Health Care Education/Training Program; PCP Family Medicine; Visit Provider Physician Assistant
DX: I13.0 Hypertensive heart and chronic kidney disease with heart failure and stage 1 through stage 4 chronic kidney disease, or unspecified chronic kidney disease (principal); I50.33 Acute on chronic diastolic (congestive) heart failure; N39.0 Urinary tract infection, site not specified; I25.10 Atherosclerotic heart disease of native coronary artery without angina pectoris; Z66 Do not resuscitate; G40.909 Epilepsy, unspecified, not intractable, without status epilepticus; Z95.1 Presence of aortocoronary bypass graft; I48.0 Paroxysmal atrial fibrillation; N40.1 Benign prostatic hyperplasia with lower urinary tract symptoms; R33.8 Other retention of urine; D51.9 Vitamin B12 deficiency anemia, unspecified; R56.9 Unspecified convulsions; D63.1 Anemia in chronic kidney disease; N18.30 Chronic kidney disease, stage 3 unspecified; Z20.822 Contact with and (suspected) exposure to COVID-19; Z86.718 Personal history of other venous thrombosis and embolism; Z79.01 Long term (current) use of anticoagulants; Z87.891 Personal history of nicotine dependence; Z79.899 Other long term (current) drug therapy
CPT/HCPCS: 0241U; 36600; 70450; 71250; 72125; 74176; 80048; 80076; 80185; 80307; 81001; 82140; 82550; 82803; 82947; 83605; 83690; 83735; 83880; 84443; 84484; 85025; 85610; 85730; 86850; 86900; 86901; 87040; 93005; 99285; C1758; J1940; J1953; J2060